=== PATIENT | male | born 1960 | race Caucasian/White ===

== ENCOUNTER → 2020-06-20 | Outpatient (CLI) | payer BC ==
--- NOTE | 2020-06-20 16:25 | CTL ---
EXAMINATION TYPE: CT Low Dose Lung DATE OF EXAM ORDERED: 06/20/2020 HISTORY: Tobacco history views. Lung cancer screening CT DLP: 153.[address] CTDI: 4.10 mGy Automated exposure control for dose reduction was used. SCREENING VISIT: Initial COMPARISON: None TECHNIQUE: Low dose computed tomography scan was performed through the chest at 1 mm thick sections a nd reconstructed images in the coronal plane at [address] DIAGNOSTIC QUALITY: Satisfactory FINDINGS: LUNG NODULES: Present, detailed below: There is a long segment of thickening along the major fissure on the right measuring proximally 1.2 c m in diameter. LUNGS: COPD: Severity: None Fibrosis: Severity: None Lymph nodes: None Other findings: None RIGHT PLEURAL SPACE: Effusion: None Calcification: None Thickening: None Pneumothorax: None LEFT PLEURAL SPACE: Effusion: None Calcification: None Thickening: None Pneumothorax: None HEART: Heart Size: Normal Coronary calcification: Moderate Pericardial effusion: None OTHER FINDINGS: Upper abdomen: Normal Bony thorax: Old right rib fractures with deformity are evident. Supraclavicular region: Normal Other: Ascending thoracic aorta at the level the main pulmonary artery measures 3.8 cm. The main pul monary artery at the bifurcation measures 3.2 cm. IMPRESSION: 1. Benign findings. 2. No suspicious changes to suggest neoplasm FOLLOW UP CT CHEST RECOMMENDATION: Yes, follow-up low-dose CT chest one year CT LUNG RAD: 2
== END ==
LOC: RADCTMAIN 13:07
PROVIDERS: ATTEND Family Medicine
DX: Z12.2 Encounter for screening for malignant neoplasm of respiratory organs (principal); Z87.891 Personal history of nicotine dependence
CPT/HCPCS: 71271

== ENCOUNTER 2021-01-10 19:02 | Inpatient (IN) | payer BC ==
[2021-01-10] MEDS ORDERED: IPRATROPIUM-ALBUTEROL 3 ML NEB INHALATION STA (19:30)
[2021-01-10] MEDS ORDERED: SODIUM CHLORIDE 0.9% 1,000 ML IV STA ×2 (19:30→20:17)
[2021-01-10] MEDS ORDERED: cefTRIAXone IN SWFI 1,000 MG/10 ML SYRINGE IVP STA (19:42)
--- NOTE | 2021-01-10 19:45 | ED ---
SOB HPI - General Chief Complaint: Shortness of Breath Stated Complaint: Weakness, Dizziness, HODAN Time Seen by Provider: 01/10/21 19:24 Source: patient Mode of arrival: ambulatory Limitations: no limitations - History of Present Illness Initial Comments: 60-year-old male presents to the emergency room with a chief complaint of fever or shortness of breath. Patient reports symptoms of an ongoing for the past several weeks and he has been experiencing chills but does not have a thermometer to check a temperature at home. States he's also developed i ncreased wheezing and exertional dyspnea. He does report some midsternal chest pressure without any radiation. Denies any alleviating or aggravating factors regarding the chest pressure. Patient states he quit smoking 2 days ago but does have long-standing history of smoking. He does report a nonproductive cough and rhinorrhea but denies any sore throat or otalgia. He denies any back pain abdominal pain nausea vomiting headaches blurry vision, once the weakness paresthesias. Not Covid vaccinated. - Related Data Home Medications Medication Instructions Recorded Confirmed Chlorthalidone [Hygroton] 25 mg PO DAILY 01/10/21 01/10/21 Sildenafil Citrate 50 mg PO DAILY PRN 01/10/21 01/10/21 lisinopriL 40 mg PO DAILY 01/10/21 01/10/21 Allergies Allergy/AdvReac Type Severity Reaction Status Date / Time No Known Allergies Allergy Verified 01/10/21 20:48 Review of Systems ROS Statement: Those systems with pertinent positive or pertinent negative responses have been documented in the HPI. ROS Other: All systems not noted in ROS Statement are negative. Past Medical History Past Medical History: Hypertension History of Any Multi-Drug Resistant Organisms: None Reported Past Surgical History: No Surgical Hx Reported Smoking Status: Current every day smoker Past Alcohol Use History: Occasional General Exam Limitations: no limitations General appearance: alert, in no apparent distress, obese Head exam: Present: atraumatic, normocephalic, normal inspection Eye exam: Present: normal appearance, PERRL, EOMI Pupils: Present: normal accommodation ENT exam: Present: normal exam, normal oropharynx, mucous membranes moist, TM's normal bilaterally, normal external ear exam Neck exam: Present: normal inspection, full ROM. Absent: tenderness Respiratory exam: Present: wheezes (Diffuse bilateral wheezing), decreased breath sounds, prolonged expiratory. Absent: respiratory distress, rales, rhonchi, stridor, chest wall tenderness, accessory muscle use Cardiovascular Exam: Present: regular rate, normal rhythm, normal heart sounds. Absent: systolic murmur GI/Abdominal exam: Present: soft. Absent: distended, tenderness, guarding Extremities exam: Present: normal inspection, full ROM, normal capillary refill, other (Palpable DP and PT bilaterally). Absent: tenderness Back exam: Present: normal inspection, full ROM Neurological exam: Present: alert, oriented X3 Psychiatric exam: Present: normal affect, normal mood Skin exam: Present: warm, dry, intact, normal color Course Vital Signs 01/10/21 01/10/21 01/10/21 19:05 19:23 20:27 Temperature 101.7 F H Pulse Rate 120 H 120 H 110 H Respiratory 18 22 Rate Blood Pressure 127/71 119/80 O2 Sat by Pulse 80 L 91 L Oximetry Medical Decision Making - Medical Decision Making 60-year-old male presents to the emergency room with a chief complaint of fever or shortness of breath. On physical examination, patient is febrile tachycardic and tachypneic. He has diffuse bilateral wheezing. He was given DuoNeb which improved his symptoms. Patient reports the dyspnea had improved and the chest tightness had resolved. Patient is still on 3 L nasal cannula and currently oxygen saturating at 92%. Covid negative. Patient did have an elevated d-dimer 5.5 with an elevated troponin 0.083. However, he does have poor renal function with elevated BUN and creatinine of 52 and 2.13, respectively. Unable to perform CT angiography at this time. Patient will be scheduled for a VQ scan. He also had leukocytosis of 15,000. Negative Covid. Patient was initially given appropriate IV fluids based on ideal body weight. Also started on Rocephin immediately. Azithromycin was further at it. I spoke to RICHIE Rubio who will admit for Dr. Smith. He recommended low intensity heparin. Case discussed with Dr. Ball. Cardiology consult. - Lab Data Result diagrams: 01/10/21 19:38 01/10/21 19:38 Lab Results 01/10/21 01/10/21 01/10/21 Range/Units 19:38 19:38 19:38 WBC 15.3 H (3.8-10.6) k/uL RBC 4.76 (4.30-5.90) m/uL Hgb 15.6 (13.0-17.5) gm/dL Hct 47.2 (39.0-53.0) % MCV 99.0 (80.0-100.0) fL MCH 32.8 (25.0-35.0) pg MCHC 33.1 (31.0-37.0) g/dL RDW 12.7 (11.5-15.5) % Plt Count 227 (150-450) k/uL MPV 7.6 Neutrophils % 95 % Lymphocytes % 2 % Monocytes % 2 % Eosinophils % 0 % Basophils % 0 % Neutrophils # 14.4 H (1.3-7.7) k/uL Lymphocytes # 0.4 L (1.0-4.8) k/uL Monocytes # 0.4 (0-1.0) k/uL Eosinophils # 0.0 (0-0.7) k/uL Basophils # 0.0 (0-0.2) k/uL PT 9.5 (9.0-12.0) sec INR 0.9 (<1.2) APTT 26.9 (22.0-30.0) sec D-Dimer 5.59 H (<0.60) mg/L FEU Sodium 131 L (137-145) mmol/L Potassium 3.8 (3.5-5.1) mmol/L Chloride 92 L (98-107) mmol/L Carbon Dioxide 29 (22-30) mmol/L Anion Gap 10 mmol/L BUN 52 H (9-20) mg/dL Creatinine 2.13 H (0.66-1.25) mg/dL Est GFR (CKD-EPI)AfAm 38 (>60 ml/min/1.73 sqM) Est GFR (CKD-EPI)NonAf 33 (>60 ml/min/1.73 sqM) Glucose 117 H (74-99) mg/dL Plasma Lactic Acid Michelet (0.7-2.0) mmol/L Calcium 8.7 (8.4-10.2) mg/dL Total Bilirubin 1.7 H (0.2-1.3) mg/dL AST 62 H (17-59) U/L ALT 28 (4-49) U/L Alkaline Phosphatase 93 (38-126) U/L Troponin I (0.000-0.034) ng/mL Total Protein 6.3 (6.3-8.2) g/dL Albumin 3.3 L (3.5-5.0) g/dL Coronavirus (PCR) (Not Detectd) 01/10/21 01/10/21 01/10/21 Range/Units 19:38 19:38 19:38 WBC (3.8-10.6) k/uL RBC (4.30-5.90) m/uL Hgb (13.0-17.5) gm/dL Hct (39.0-53.0) % MCV (80.0-100.0) fL MCH (25.0-35.0) pg MCHC (31.0-37.0) g/dL RDW (11.5-15.5) % Plt Count (150-450) k/uL MPV Neutrophils % % Lymphocytes % % Monocytes % % Eosinophils % % Basophils % % Neutrophils # (1.3-7.7) k/uL Lymphocytes # (1.0-4.8) k/uL Monocytes # (0-1.0) k/uL Eosinophils # (0-0.7) k/uL Basophils # (0-0.2) k/uL PT (9.0-12.0) sec INR (<1.2) APTT (22.0-30.0) sec D-Dimer (<0.60) mg/L FEU Sodium (137-145) mmol/L Potassium (3.5-5.1) mmol/L Chloride (98-107) mmol/L Carbon Dioxide (22-30) mmol/L Anion Gap mmol/L BUN (9-20) mg/dL Creatinine (0.66-1.25) mg/dL Est GFR (CKD-EPI)AfAm (>60 ml/min/1.73 sqM) Est GFR (CKD-EPI)NonAf (>60 ml/min/1.73 sqM) Glucose (74-99) mg/dL Plasma Lactic Acid Michelet 1.2 (0.7-2.0) mmol/L Calcium (8.4-10.2) mg/dL Total Bilirubin (0.2-1.3) mg/dL AST (17-59) U/L ALT (4-49) U/L Alkaline Phosphatase (38-126) U/L Troponin I 0.084 H* (0.000-0.034) ng/mL Total Protein (6.3-8.2) g/dL Albumin (3.5-5.0) g/dL Coronavirus (PCR) Not Detected (Not Detectd) - EKG Data EKG Comments: Sinus tachycardia Ventricular rate 120, MT 154, QRS 96, QTc 443. Disposition Clinical Impression: Pneumonia, Elevated troponin, Acute kidney injury Disposition: ADMITTED IP TO THIS HOSP Condition: Fair Is patient prescribed a controlled substance at d/c from ED?: No Referrals: Char Howard MD [Primary Care Provider] - 1-2 days Time of Disposition: 21:09
[2021-01-10 19:48] LABS: Basophils % (A) 0 %; Eosinophils % (A) 0 %; HCT 47.2 % (39.0-53.0); HGB 15.6 gm/dL (13.0-17.5); Lymphocytes # (A) 0.4 k/uL (1.0-4.8); Lymphocytes % (A) 2 %; MCH 32.8 pg (25.0-35.0); MCHC 33.1 g/dL (31.0-37.0); Mean Platelet Volume 7.6; Monocytes # (A) 0.4 k/uL (0-1.0); Monocytes % (A) 2 %; Neutrophils # (A) 14.4 k/uL (1.3-7.7); Neutrophils % (A) 95 %; Platelet Count 227 k/uL (150-450); RBC 4.76 m/uL (4.30-5.90); RDW 12.7 % (11.5-15.5); WBC 15.3 k/uL (3.8-10.6)
[2021-01-10 19:57] LABS: Albumin 3.3 g/dL (3.5-5.0); Calcium 8.7 mg/dL (8.4-10.2); Potassium 3.8 mmol/L (3.5-5.1); Total Bilirubin 1.7 mg/dL (0.2-1.3); Total Protein 6.3 g/dL (6.3-8.2)
[2021-01-10 20:25] LABS: INR 0.9 (<1.2); Partial Thromboplastin Time 26.9 sec (22.0-30.0); Prothrombin Time 9.5 sec (9.0-12.0)
[2021-01-10] MEDS ORDERED: HEPARIN SODIUM 1,000 UN/ML (10ML VL) IV PRN (21:04)
[2021-01-10] MEDS ORDERED: HEPARIN SODIUM 1,000 UN/ML (10ML VL) IV ONE (21:04)
[2021-01-10] MEDS ORDERED: NALOXONE 0.4 MG/ML 1 ML VIAL IV PRN (21:05)
[2021-01-10] MEDS ORDERED: AZITHROMYCIN 500 MG in SODIUM CHLORIDE 0.9% 250 ML IVPB STA (21:06)
[2021-01-10] MEDS ORDERED: HEPARIN SOD,PORK IN 0.45% NACL 25,000 UNIT in 0.45% NACL 1 250ML.BAG IV SCH (21:15)
--- NOTE | 2021-01-10 21:30 | XR ---
EXAMINATION TYPE: XR chest 2V DATE OF EXAM: 01/10/2021 COMPARISON: CT 06/20/2020 HISTORY: Weakness dizziness TECHNIQUE: Frontal and lateral views of the chest are obtained. FINDINGS: The cardiomediastinal silhouette and pulmonary vasculature are within normal limits. Blunt ing of the right is costophrenic angle likely related to elevation of the hemidiaphragm. No consolida tion, effusion or pneumothorax. Old right rib fractures. IMPRESSION: Acute cardiopulmonary process.
[2021-01-10] MEDS ORDERED: ACETAMINOPHEN TAB 500 MG TAB PO STA (23:20)
[2021-01-10] MEDS: SODIUM CHLORIDE 0.9% 1,000 ML IV SCH (23:22)
[2021-01-11] MEDS ORDERED: SODIUM CHLORIDE 0.9% 1,000 ML IV ONE (00:39)
[2021-01-11 00:45] LABS: Basophils % (A) 0 %; Eosinophils % (A) 0 %; Lymphocytes # (A) 0.4 k/uL (1.0-4.8); Lymphocytes % (A) 3 %; MCH 32.5 pg (25.0-35.0); MCHC 32.5 g/dL (31.0-37.0); Mean Platelet Volume 7.4; Monocytes # (A) 0.3 k/uL (0-1.0); Monocytes % (A) 2 %; Neutrophils # (A) 13.6 k/uL (1.3-7.7); Neutrophils % (A) 94 %; Platelet Count 214 k/uL (150-450); RBC 4.01 m/uL (4.30-5.90); RDW 12.8 % (11.5-15.5); WBC 14.4 k/uL (3.8-10.6)
[2021-01-11 00:48] LABS: Allen Test Performed? Yes
[2021-01-11 00:56] LABS: ABG Base Excess 0.1 mmol/L; ABG HCO3 27 mmol/L (21-25); ABG Oxygen Saturation 97.6 % (94-97); ABG PCO2 53 mmHg (35-45); ABG PH 7.31 (7.35-7.45); ABG PO2 97 mmHg (83-108); ABG TCO2 28 mmol/L (19-24)
[2021-01-11 01:08] LABS: INR 0.9 (<1.2); Partial Thromboplastin Time 43.3 sec (22.0-30.0)
--- NOTE | 2021-01-11 01:56 | P.EN ---
A team note called on this patient due hypotension patient comes in with SOB and fever, diagnosed with pneumonia , and history of heavy smoking with possible clinical COPD undiagnosed d - dimer elevated, but EVI prevented obtaining a CTA , he was started on heparin drip, however no risk factors per history for blood clots ABG showing eleveated PCO2 on exam he is feeling ok , diaphoretic , no confusion , no chest pain , he feels his breathing heavy , currently on 5 L NC sating 91-92% PH 7.31, PCO2 55, lungs sounds rhonchorous decreased breath sounds over the right lung base Extremities are warm to the touch no leg edema bilaterally Patient alert and oriented 3 he received 2 L boluses , LA wnl ,received 1gm rocephin and azithro currently on heparin drip and oxygen , breathing treatment as needed assessment Severe septic shock with multiorgan failure ( hypoxemia , and EVI) give another dose of 1 gm rocephin and switch to rocephin 2 gm daily IVPB, continue azithro check urine legionella Ag (hyponatremia , EVI , slightly elevated CK, atypical infilterates on the CXR) continue with heparin drip , can not rule out PE, d-dimer elevated however no risk factor per history start bipap due to ABG showing acute hypercapnic respiratory failure with mild acidosis another 1 L bolus normal saline if above measures does not help improve patient blood pressure , or clinical picture worsens , will transfer to ICU for IV pressors Total amount of critical care time spent was 35 minutes not counting procedures performed.
[2021-01-11 02:38] LABS: Basophils % (A) 0 %; Eosinophils # (A) 0.1 k/uL (0-0.7); Eosinophils % (A) 0 %; HCT 41.1 % (39.0-53.0); HGB 13.2 gm/dL (13.0-17.5); Lymphocytes # (A) 0.5 k/uL (1.0-4.8); Lymphocytes % (A) 4 %; MCH 32.2 pg (25.0-35.0); MCHC 32.1 g/dL (31.0-37.0); MCV 100.6 fL (80.0-100.0); Mean Platelet Volume 7.3; Monocytes # (A) 0.3 k/uL (0-1.0); Monocytes % (A) 2 %; Neutrophils # (A) 12.8 k/uL (1.3-7.7); Neutrophils % (A) 93 %; Platelet Count 212 k/uL (150-450); RBC 4.09 m/uL (4.30-5.90); RDW 12.9 % (11.5-15.5); WBC 13.9 k/uL (3.8-10.6)
[2021-01-11] MEDS ORDERED: SODIUM CHLORIDE 0.9% 500 ML 500 ML IV ONE ×2 (02:42→03:42)
[2021-01-11 02:59] LABS: INR 0.9 (<1.2); Partial Thromboplastin Time 35.1 sec (22.0-30.0); Prothrombin Time 9.8 sec (9.0-12.0)
--- NOTE | 2021-01-11 07:08 | NM ---
EXAMINATION TYPE: NM pul perfusion DATE OF EXAM: 01/11/2021 COMPARISON: NONE HISTORY: Dyspnea, elevated d-dimer, poor renal function Following administration of 5.1 mCi Tc 99m MAA. Images obtained post injection. FINDINGS: There is homogeneous distribution radiotracer throughout the visualized perfusion images. IMPRESSION: Low probability for pulmonary embolism.
[2021-01-11] MEDS ORDERED: IPRATROPIUM-ALBUTEROL 3 ML NEB INHALATION PRN (09:54)
[2021-01-11] MEDS: SODIUM CHLORIDE 0.9% 1,000 ML IV SCH ×3 (10:35→20:06)
--- NOTE | 2021-01-11 10:45 | ECHOF ---
Referral Reason:elev trop, sob MEASUREMENTS -------- HEIGHT: 182.9 cm WEIGHT: 111.6 kg BP: 127/83 RVIDd: 3.0 cm (< 3.3) IVSd: 1.3 cm (0.6 - 1.1) LVIDd: 4.2 cm (3.9 - 5.3) LVPWd: 1.3 cm (0.6 - 1.1) IVSs: 1.9 cm LVIDs: 2.9 cm LVPWs: 1.6 cm LA Diam: 3.4 cm (2.7 - 3.8) LAESV Index (A-L): 15.00 ml/m Ao Diam: 4.0 cm (2.0 - 3.7) AV Cusp: 2.2 cm (1.5 - 2.6) MV EXCURSION: 13.883 mm (> 18.000) MV EF SLOPE: 72 mm/s (70 - 150) EPSS: 0.6 cm MV E Marco: 0.89 m/s MV DecT: 212 ms MV A Marco: 1.20 m/s MV E/A Ratio: 0.74 RAP: 5.00 mmHg RVSP: 44.63 mmHg FINDINGS -------- Sinus rhythm. Resting tachycardia (HR>100bpm). This was a technically difficult study with suboptimal views. The left ventricular size is normal. There is mild concentric left ventricular hypertrophy. Overa ll left ventricular systolic function is normal with, an EF between 55 - 60 %. The right ventricle is normal in size. Normal LA size by volume 22+/-6 ml/m2. The right atrial size is normal. Interatrial and interventricular septum intact. The aortic valve is trileaflet, and appears structurally normal. No aortic stenosis or regurgitation. The mitral valve is normal. Mild tricuspid regurgitation present. There is mild pulmonary hypertension. The right ventricular systolic pressure, as measured by Doppler, is 44.63mmHg. The pulmonic valve was not well visualized. The aortic root is dilated measuring 4.0cm. Normal inferior vena cava with normal inspiratory collapse consistent with estimated right atrial pre ssure of 5 mmHg. There is no pericardial effusion. CONCLUSIONS -------- 1. This was a technically difficult study with suboptimal views. 2. There is mild concentric left ventricular hypertrophy. 3. Overall left ventricular systolic function is normal with, an EF between 55 - 60 %. 4. Normal LA size by volume 22+/-6 ml/m2. 5. The aortic valve is trileaflet, and appears structurally normal. No aortic stenosis or regurgitati on. 6. Mild tricuspid regurgitation present. 7. There is mild pulmonary hypertension. 8. The aortic root is dilated measuring 4.0cm. 9. There is no pericardial effusion. REGIONAL ADMINISTRATIVE ASSISTANT: Elizabeth Calzada RDCS
--- NOTE | 2021-01-11 11:30 | P.CRDCN ---
History of Present Illness History of present illness: HISTORY OF PRESENTING ILLNESS This is a pleasant 60-year-old male past medical history significant for hypertension, chronic nicotine dependence and daily alcohol intake. 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 We have been asked to see in consultation for elevated troponin. He presented to the hospital with symptoms of shortness of breath that has been worsening for the previous couple weeks with a tight sens ation in his chest associated with breathing. He denies dizziness or palpitations. He is currently being treated for septic shock secondary to suspected pneumonia. He was placed on BiPAP last night for elevated pCO2. He is seen and examined sitting up in bed in no acute distress. He has no symptoms of chest discomfort. He feels his breathing is mildly improved however he continues to require oxygen. Echocardiogram obtained reveals preserved LV systolic function with ejection fraction 55-60% with mild tricuspid regurgitation and mild pulmonary hypertension with an RVSP of 44 mmHg. DIAGNOSTICS EKG reveals sinus tachycardia heart rate of 120, poor R-wave progression and nonspecific ST abnormalities.. Telemetry tracings indicate SR. Chest xray reveals blunting of the right costophrenic angle. VQ scan low probability for PE. Laboratory reviewed, WBC 13.9, hemoglobin 13.2, platelets 212, pH 7.31, pCO2 53, NT proBNP 915, troponin 0.084, 0.078, 0.065, sodium 131, potassium 3.8, creatini ne 2.13. Current cardiac medications include lisinopril 40 mg daily and chlorthalidone 25 mg daily. REVIEW OF SYSTEMS At the time of my exam: CONSTITUTIONAL: Denies fever or chills. CARDIOVASCULAR: Denies chest pain, shortness of breath, orthopnea, PND or palpitations. RESPIRATORY: Denies cough. GASTROINTESTINAL: Denies abdominal pain, diarrhea, constipation, nausea or vomiting. MUSCULOSKELETAL: Denies myalgias. NEUROLOGIC: Denies numbness, tingling, headache or weakness. ENDOCRINE: Denies fatigue, weight change, polydipsia or polyurina. GENITOURINARY: Denies burning, hematuria or urgency with micturation. HEMATOLOGIC: Denies history of anemia or bleeding. PHYSICAL EXAMINATION Blood pressure 110/72 heart rate 90 afebrile and maintaining oxygen saturation on hyphal nasal cannula. CONSTITUTIONAL: No apparent distress. HEENT: Head is normocephalic. Pupils are equal, round. Sclerae anicteric. Mucous membranes of the mouth are moist. No JVD. No carotid bruit. CHEST EXAMINATION: Expiratory wheezes, scattered rhonchi, no rales No chest wall tenderness is noted on palpation or with deep breathing. HEART EXAMINATION: Regular rate and rhythm. S1, S2 heard. No murmurs, gallops or rub. ABDOMEN: Soft, nontender. EXTREMITIES: 2+ peripheral pulses, no lower extremity edema and no calf tenderness. NEUROLOGIC EXAMINATION: Patient is awake, alert and oriented x3. ASSESSMENT Shortness of breath Hypercapnia Acute kidney injury Troponin leak secondary to EVI Hypertension Nicotine dependence Daily alcohol intake PLAN Troponin elevation related to acute kidney injury. No ischemic changes noted on the EKG or echocardiogram. No further cardiac workup at this time. Suggest pulmonary evaluation. Follow-up in the office with Dr. Bueno upon discharge for further outpatient work-up. Thank you kindly for this consultation. Nurse Practitioner note has been reviewed, I agree with a documented findings and plan of care. Patient was seen and examined. Past Medical History Past Medical History: Hypertension History of Any Multi-Drug Resistant Organisms: None Reported Past Surgical History: No Surgical Hx Reported Smoking Status: Current some day smoker Past Alcohol Use History: Daily Additional Past Alcohol Use History / Comment(s): 2 drinks daily; pt smokes 1.5 packs a day Medications and Allergies Home Medications Medication Instructions Recorded Confirmed Type Chlorthalidone [Hygroton] 25 mg PO DAILY 01/10/21 01/10/21 History Sildenafil Citrate 50 mg PO DAILY PRN 01/10/21 01/10/21 History lisinopriL 40 mg PO DAILY 01/10/21 01/10/21 History Allergies Allergy/AdvReac Type Severity Reaction Status Date / Time No Known Allergies Allergy Verified 01/10/21 20:48 Physical Exam Vitals: Vital Signs Temp Pulse Pulse Resp BP BP BP 01/11/21 07:20 97.6 F 97 127/83 01/11/21 05:12 80 99/68 01/11/21 04:25 88 23 97/66 01/11/21 03:40 74 90/58 01/11/21 03:16 98.7 F 76 18 82/50 01/11/21 02:30 82 20 84/51 01/11/21 01:59 98.9 F 01/11/21 01:20 97/63 01/11/21 00:58 82/52 01/11/21 00:46 01/11/21 00:43 01/11/21 00:33 65/36 01/10/21 23:45 99.8 F H 105 H 23 82/51 74/43 01/10/21 23:28 102.3 F H 109 H 20 107/78 01/10/21 22:08 109 H 20 126/82 01/10/21 20:35 108 H 01/10/21 20:25 110 H 01/10/21 19:23 120 H 22 119/80 01/10/21 19:05 101.7 F H 120 H 18 127/71 Pulse Ox 01/11/21 07:20 01/11/21 05:12 97 01/11/21 04:25 96 01/11/21 03:40 97 01/11/21 03:16 94 L 01/11/21 02:30 95 01/11/21 01:59 01/11/21 01:20 01/11/21 00:58 01/11/21 00:46 92 L 01/11/21 00:43 95 01/11/21 00:33 01/10/21 23:45 91 L 01/10/21 23:28 92 L 01/10/21 22:08 93 L 01/10/21 20:35 01/10/21 20:25 01/10/21 19:23 91 L 01/10/21 19:05 80 L Intake and Output 01/10/21 01/11/21 01/11/21 22:59 06:59 14:59 Intake Total 36.811 240 Output Total 175 Balance -138.189 240 Intake: Intake, IV Titration 36.811 Amount Heparin Sod,Pork in 0.45% 36.811 NaCl 25,000 unit In 0.45 % NaCl 1 250ml.bag @ 9.18 UNITS/KG/HR 9.994 mls/hr IV .Q24H [facility] Rx#: [id number] Oral 240 Output: Urine 175 Other: Voiding Method Urinal # Voids 1 Weight 108.862 kg 112 kg Results 01/11/21 02:24 01/10/21 19:38 Cardiac Enzymes 01/10/21 01/10/21 01/11/21 Range/Units 19:38 19:38 00:27 AST 62 H (17-59) U/L Troponin I 0.084 H* 0.078 H* (0.000-0.034) ng/mL 01/11/21 Range/Units 02:24 AST (17-59) U/L Troponin I 0.065 H* (0.000-0.034) ng/mL Coagulation 01/10/21 01/11/21 01/11/21 Range/Units 19:38 00:27 02:24 PT 9.5 10.0 9.8 (9.0-12.0) sec APTT 26.9 43.3 H 35.1 H (22.0-30.0) sec 01/11/21 Range/Units 08:17 PT (9.0-12.0) sec APTT 32.6 H (22.0-30.0) sec CBC 01/10/21 01/11/21 01/11/21 Range/Units 19:38 00:27 02:24 WBC 15.3 H 14.4 H 13.9 H (3.8-10.6) k/uL RBC 4.76 4.01 L 4.09 L (4.30-5.90) m/uL Hgb 15.6 13.0 13.2 (13.0-17.5) gm/dL Hct 47.2 40.0 41.1 (39.0-53.0) % Plt Count 227 214 212 (150-450) k/uL Comprehensive Metabolic Panel 01/10/21 Range/Units 19:38 Sodium 131 L (137-145) mmol/L Potassium 3.8 (3.5-5.1) mmol/L Chloride 92 L (98-107) mmol/L Carbon Dioxide 29 (22-30) mmol/L BUN 52 H (9-20) mg/dL Creatinine 2.13 H (0.66-1.25) mg/dL Glucose 117 H (74-99) mg/dL Calcium 8.7 (8.4-10.2) mg/dL AST 62 H (17-59) U/L ALT 28 (4-49) U/L Alkaline Phosphatase 93 (38-126) U/L Total Protein 6.3 (6.3-8.2) g/dL Albumin 3.3 L (3.5-5.0) g/dL Current Medications Generic Name Dose Route Start Last Admin Trade Name Freq PRN Reason Stop Dose Admin Heparin Sodium (Porcine) 0 unit 01/10/21 21:04 01/11/21 03:09 Heparin Sodium 1,000 Un/Ml (10ml Vl) IV 2,700 unit PER PROTOCOL PRN Administration Low PTT Protocol Heparin Sodium/Sodium Chloride 250 mls @ 9.994 mls/hr 01/10/21 21:15 01/11/21 03:06 25,000 unit/ Sodium Chloride IV 11.18 units/kg/hr .Q24H [facility] 12.171 mls/hr Titration Protocol 9.18 UNITS/KG/HR Sodium Chloride 1,000 mls @ 100 mls/hr 01/10/21 21:15 01/10/21 23:22 Saline 0.9% IV 75 mls/hr .Q10H [facility] Administration Ceftriaxone Sodium 2 gm/ 50 mls @ 100 mls/hr 01/11/21 20:00 Sodium Chloride IVPB Q24H [facility] Naloxone HCl 0.2 mg 01/10/21 21:05 Naloxone 0.4 Mg/Ml 1 Ml Vial IV Q2M PRN Opioid Reversal Intake and Output 01/10/21 01/11/21 01/11/21 22:59 06:59 14:59 Intake Total 36.811 240 Output Total 175 Balance -138.189 240 Intake: Intake, IV Titration 36.811 Amount Heparin Sod,Pork in 0.45% 36.811 NaCl 25,000 unit In 0.45 % NaCl 1 250ml.bag @ 9.18 UNITS/KG/HR 9.994 mls/hr IV .Q24H [facility] Rx#: [id number] Oral 240 Output: Urine 175 Other: Voiding Method Urinal # Voids 1 Weight 108.862 kg 112 kg 01/11/21 02:24 01/10/21 19:38
[2021-01-11] MEDS: IPRATROPIUM-ALBUTEROL 3 ML NEB INHALATION SCH ×3 (11:36→19:18)
[2021-01-11] MEDS ORDERED: methylPREDNISolone SOD SUCCI 125 MG/2 ML VIAL IV SCH (12:00)
--- NOTE | 2021-01-11 12:16 | P.CNPUL ---
History of Present Illness Consult date: 01/11/21 Requesting physician: Ángel Smith Reason for consult: dyspnea, cough, COPD, hypoxemia Chief complaint: Shortness of breath. History of present illness: Pulmonary consultation dated 01/11/2021. This is a 60-year-old male, who was evaluated in the emergency department, on January 10. The patient came into the emergency room, complaining of fever, and shortness of breath. Apparently, the patient has not been feeling well for a number of days. The patient did not take his temperature at home, but is felt hot and was having chills. In addition, the patient was congested, coughing, and wheezing. He did apparently also complaining of some midsternal chest pressure without radiation. The patient was admitted to the hospital because of these complaints. The patient has been smoking since the age of 20. He's been smoking 40 years at more than 1 pack of cigarettes a day. He quit smoking a day or so before he came into the hospital. He has never seen a lung doctor in the past. He has never been diagnosed with COPD. He has been seen by cardiology. The patient has not received his vaccinations against coronavirus. Apparently has only medical history is that of hypertension, and erectile dysfunction. White count 13.9, hemoglobin 13.2, hematocrit 41.1, and platelet count 212,000. The patient's PTT is 32.6. Blood gases show pO2 of 97, pCO2 53, and a pH is 7.31. This blood gases consistent with mild respiratory acidosis. The patient's CK was 280. The N-terminal proBNP was 915. The troponins were 0.078 and 0.065. [place] opinion, the chest x-rays consistent with mild fluid overload and bilateral pleural effusions and/or atelectasis. A ventilation perfusion lung scan was apparently low probability for pulmonary embolism. The echocardiogram showed an ejection fraction between 55 and 60%. There was mild tricuspid regurgitation, and mild pulmonary hypertension. This pattern is likely most consistent with underlying pulmonary disease. Review of Systems REVIEW OF SYSTEMS: CONSTITUTIONAL: Chills and possible temperature elevation. NEUROLOGIC: [ Negative.] HEENT: [ Negative.] CARDIAC: Midsternal chest discomfort. PULMONARY: Shortness of breath, cough, wheezing, and chest congestion. GI: [Negative.] : [Negative.] RHEUMATOLOGIC: [ Negative.] IMMUNOLOGIC: [ Negative.] ENDOCRINE: [Negative. ] DERMATOLOGIC: [Negative.] Past Medical History Past Medical History: Hypertension History of Any Multi-Drug Resistant Organisms: None Reported Past Surgical History: No Surgical Hx Reported Smoking Status: Current some day smoker Past Alcohol Use History: Daily Additional Past Alcohol Use History / Comment(s): 2 drinks daily; pt smokes 1.5 packs a day Medications and Allergies Home Medications Medication Instructions Recorded Confirmed Type Chlorthalidone [Hygroton] 25 mg PO DAILY 01/10/21 01/10/21 History Sildenafil Citrate 50 mg PO DAILY PRN 01/10/21 01/10/21 History lisinopriL 40 mg PO DAILY 01/10/21 01/10/21 History Allergies Allergy/AdvReac Type Severity Reaction Status Date / Time No Known Allergies Allergy Verified 01/10/21 20:48 Physical Exam Osteopathic Statement: *. No significant issues noted on an osteopathic structural exam other than those noted in the History and Physical/Consult. Vitals: Vital Signs Temp Pulse Pulse Resp BP BP BP 01/11/21 11:48 112 H 01/11/21 11:37 112 H 01/11/21 07:50 98.4 F 90 18 110/72 01/11/21 07:20 97.6 F 97 127/83 01/11/21 05:12 80 99/68 01/11/21 04:25 88 23 97/66 01/11/21 03:40 74 90/58 01/11/21 03:16 98.7 F 76 18 82/50 01/11/21 02:30 82 20 84/51 01/11/21 01:59 98.9 F 01/11/21 01:20 97/63 01/11/21 00:58 82/52 01/11/21 00:46 01/11/21 00:43 01/11/21 00:33 65/36 01/10/21 23:45 99.8 F H 105 H 23 82/51 74/43 01/10/21 23:28 102.3 F H 109 H 20 107/78 01/10/21 22:08 109 H 20 126/82 01/10/21 20:35 108 H 01/10/21 20:25 110 H 01/10/21 19:23 120 H 22 119/80 01/10/21 19:05 101.7 F H 120 H 18 127/71 Pulse Ox 01/11/21 11:48 01/11/21 11:37 01/11/21 07:50 96 01/11/21 07:20 01/11/21 05:12 97 01/11/21 04:25 96 01/11/21 03:40 97 01/11/21 03:16 94 L 01/11/21 02:30 95 01/11/21 01:59 01/11/21 01:20 01/11/21 00:58 01/11/21 00:46 92 L 01/11/21 00:43 95 01/11/21 00:33 01/10/21 23:45 91 L 01/10/21 23:28 92 L 01/10/21 22:08 93 L 01/10/21 20:35 01/10/21 20:25 01/10/21 19:23 91 L 01/10/21 19:05 80 L Intake and Output 01/10/21 01/11/21 01/11/21 22:59 06:59 14:59 Intake Total 36.811 240 Output Total 175 Balance -138.189 240 Intake: Intake, IV Titration 36.811 Amount Heparin Sod,Pork in 0.45% 36.811 NaCl 25,000 unit In 0.45 % NaCl 1 250ml.bag @ 9.18 UNITS/KG/HR 9.994 mls/hr IV .Q24H [facility] Rx#: [id number] Oral 240 Output: Urine 175 Other: Voiding Method Urinal Urinal # Voids 1 Weight 108.862 kg 112 kg Mild respiratory distress, oriented 3, with mild conversational dyspnea. No audible wheezing or use of accessory muscles. HEENT examination is grossly unremarkable. Neck supple. Full range of motion. No adenopathy thyromegaly or neck vein distention. Cardiovascular examination reveals regular rhythm rate. S1-S2 normal. No S3 or S4. No discernible murmur noted. Heart rate 112 bpm. Heart sounds are distant. Lungs reveal coarse bilateral inspiratory and expiratory rhonchi, and expiratory wheezes. Breath sounds equal bilaterally but diminished throughout. No crackles are appreciated. Abdomen soft bowel sounds are heard. No masses or tenderness. Extremities are intact. No cyanosis or clubbing. Minimal edema present. Skin is without rash or lesion. Neurologic examination is brief but nonfocal. Results - Laboratory Findings CBC and BMP: 01/11/21 02:24 01/10/21 19:38 ABG ABG pH 7.31 (7.35-7.45) L 01/11/21 00:45 ABG pCO2 53 mmHg (35-45) H 01/11/21 00:45 ABG pO2 97 mmHg (83-108) 01/11/21 00:45 ABG O2 Saturation 97.6 % (94-97) H 01/11/21 00:45 PT/INR, D-dimer PT 9.8 sec (9.0-12.0) 01/11/21 02:24 INR 0.9 (<1.2) 01/11/21 02:24 D-Dimer 5.59 mg/L FEU (<0.60) H 01/10/21 19:38 Abnormal lab findings: Abnormal Labs 01/10/21 01/10/21 01/10/21 19:38 19:38 19:38 WBC 15.3 H RBC MCV Neutrophils # 14.4 H Lymphocytes # 0.4 L APTT D-Dimer 5.59 H ABG pH ABG pCO2 ABG HCO3 ABG Total CO2 ABG O2 Saturation Sodium 131 L Chloride 92 L BUN 52 H Creatinine 2.13 H Glucose 117 H Total Bilirubin 1.7 H AST 62 H Creatine Kinase Troponin I Albumin 3.3 L 01/10/21 01/11/21 01/11/21 19:38 00:27 00:27 WBC 14.4 H RBC 4.01 L MCV Neutrophils # 13.6 H Lymphocytes # 0.4 L APTT 43.3 H D-Dimer ABG pH ABG pCO2 ABG HCO3 ABG Total CO2 ABG O2 Saturation Sodium Chloride BUN Creatinine Glucose Total Bilirubin AST Creatine Kinase Troponin I 0.084 H* Albumin 01/11/21 01/11/21 01/11/21 00:27 00:27 00:45 WBC RBC MCV Neutrophils # Lymphocytes # APTT D-Dimer ABG pH 7.31 L ABG pCO2 53 H ABG HCO3 27 H ABG Total CO2 28 H ABG O2 Saturation 97.6 H Sodium Chloride BUN Creatinine Glucose Total Bilirubin AST Creatine Kinase 280 H Troponin I 0.078 H* Albumin 01/11/21 01/11/21 01/11/21 02:24 02:24 02:24 WBC 13.9 H RBC 4.09 L MCV 100.6 H Neutrophils # 12.8 H Lymphocytes # 0.5 L APTT 35.1 H D-Dimer ABG pH ABG pCO2 ABG HCO3 ABG Total CO2 ABG O2 Saturation Sodium Chloride BUN Creatinine Glucose Total Bilirubin AST Creatine Kinase Troponin I 0.065 H* Albumin 01/11/21 08:17 WBC RBC MCV Neutrophils # Lymphocytes # APTT 32.6 H D-Dimer ABG pH ABG pCO2 ABG HCO3 ABG Total CO2 ABG O2 Saturation Sodium Chloride BUN Creatinine Glucose Total Bilirubin AST Creatine Kinase Troponin I Albumin - Diagnostic Findings Chest x-ray: image reviewed Assessment and Plan Assessment: Shortness of breath, most likely related to underlying pulmonary disease such as COPD, for many years of tobacco use. Mild pulmonary hypertension, also likely the result of underlying COPD. History of ongoing tobacco use with nicotine addiction. Possible mild fluid overload/CHF. History of hypertension. History of erectile dysfunction. Plan: Plan dated 01/11/2021. The patient we placed on albuterol sulfate and ipratropium bromide, 4 times a day and when necessary. Addition, the patient will be placed on Pulmicort 1 mg and formoterol, 20 g, twice a day. We'll also add some Solu-Medrol 60 mg IV push every 6 hours. The patient may benefit from a nicotine patch. We counseled the patient about the importance of smoking cessation. Post discharge, the patient will need an outpatient pulmonary function test. Prognosis is guarded. Time with Patient: Greater than 30
--- NOTE | 2021-01-11 12:23 | P.HPIM ---
History of Present Illness Patient is a pleasant 60-year-old male came in with complaints of for generalized body aches unsure whether he had fever shortness of breath not feeling well going on for about 3 days. Patient was also complaining of cough with sputum production patient was smoking about pack and half cigarettes a day until 3 days ago. Patient was never diagnosed with COPD but does have significant wheezing on exam. Patient needed to be on BiPAP. Patient has a bilateral pleural effusions on the chest x-ray some atelectasis an atypical infiltrate. Patient's serum sodium is low, patient is on diuretics at home. Patient to denied any significant chest pain troponins are minimally elevated because of which are cardiology valid the patient patient has creatinine of 2.13, do not have any other creatinines available patient is hypotensive yesterday. Patient is on lisinopril, sildenafil and chlorthalidone at home. Patient does have leukocytosis. Patient is presently receiving 100 mL of normal saline at this time. Patient d-dimer is highly elevated to 5.59 because of which patient had a VQ scan which showed low probability. Patient was started on IV heparin which is being discontinued. REVIEW OF SYSTEMS: CONSTITUTIONAL: As mentioned in HPI HEENT: No recent visual problems or hearing problems. Denied any sore throat. CARDIOVASCULAR: No chest pain, orthopnea, PND, no palpitations, no syncope. PULMONARY: no hemoptysis. GASTROINTESTINAL: No diarrhea, no nausea, no vomiting, no abdominal pain. NEUROLOGICAL: No headaches, no weakness, no numbness. HEMATOLOGICAL: Denies any bleeding or petechiae. GENITOURINARY: Denies any burning micturition, frequency, or urgency. MUSCULOSKELETAL/RHEUMATOLOGICAL: Denies any joint pain, swelling, or any muscle pain. ENDOCRINE: Denies any polyuria or polydipsia. The rest of the 14-point review of systems is negative. PHYSICAL EXAMINATION: GENERAL: The patient is alert and oriented x3, not in any acute distress. Well developed, well nourished. HEENT: Pupils are round and equally reacting to light. EOMI. No scleral icterus. No conjunctival pallor. Normocephalic, atraumatic. No pharyngeal erythema. No thyromegaly. CARDIOVASCULAR: S1 and S2 present. No murmurs, rubs, or gallops. PULMONARY: Bilateral rhonchi significant expiratory wheezing. ABDOMEN: Soft, nontender, nondistended, normoactive bowel sounds. No palpable organomegaly. MUSCULOSKELETAL: No joint swelling or deformity. EXTREMITIES: No cyanosis, clubbing, or pedal edema. NEUROLOGICAL: Gross neurological examination did not reveal any focal deficits. SKIN: No rashes. Assessment and plan -Sepsis: Severe: Etiology is sepsis is not clear if appears to be viral upper respiratory infection although I cannot completely rule out pneumonia urinary Legionella antigen is appropriate will also order Mycoplasma antibody continue with the antibiotics for now. Continue with IV fluids -Acute hypoxic and hypercapnic respiratory failure: Secondary to COPD exacerbation and he was systemic steroids inhalational treatments. was on BiPAP last night presently on nasal cannula oxygen -Nicotine abuse history: Counseling was provided t-acute renal failure probably due to acute tubular necrosis secondary to hypotension and possible sepsis patient will be continued on IV fluids will obtain a renal ultrasound, baseline creatinine is not available hold off on sildenafil, chlorthalidone and lisinopril. We'll also obtain urine random sodium, urine random creatinine -Elevated troponin secondary to renal failure and possible sepsis -Elevated d-dimer secondary to sepsis - ruled out pulmonary embolism -Mild pulmonary hypertension DVT prophylaxis: Continue his heparin Past Medical History Past Medical History: Hypertension History of Any Multi-Drug Resistant Organisms: None Reported Past Surgical History: No Surgical Hx Reported Smoking Status: Current some day smoker Past Alcohol Use History: Daily Additional Past Alcohol Use History / Comment(s): 2 drinks daily; pt smokes 1.5 packs a day Medications and Allergies Home Medications Medication Instructions Recorded Confirmed Type Chlorthalidone [Hygroton] 25 mg PO DAILY 01/10/21 01/10/21 History Sildenafil Citrate 50 mg PO DAILY PRN 01/10/21 01/10/21 History lisinopriL 40 mg PO DAILY 01/10/21 01/10/21 History Allergies Allergy/AdvReac Type Severity Reaction Status Date / Time No Known Allergies Allergy Verified 01/10/21 20:48 Physical Exam Vitals: Vital Signs Temp Pulse Pulse Resp BP BP BP 01/11/21 11:48 112 H 01/11/21 11:37 112 H 01/11/21 07:50 98.4 F 90 18 110/72 01/11/21 07:20 97.6 F 97 127/83 01/11/21 05:12 80 99/68 01/11/21 04:25 88 23 97/66 01/11/21 03:40 74 90/58 01/11/21 03:16 98.7 F 76 18 82/50 01/11/21 02:30 82 20 84/51 01/11/21 01:59 98.9 F 01/11/21 01:20 97/63 01/11/21 00:58 82/52 01/11/21 00:46 01/11/21 00:43 01/11/21 00:33 65/36 01/10/21 23:45 99.8 F H 105 H 23 82/51 74/43 01/10/21 23:28 102.3 F H 109 H 20 107/78 01/10/21 22:08 109 H 20 126/82 01/10/21 20:35 108 H 01/10/21 20:25 110 H 01/10/21 19:23 120 H 22 119/80 01/10/21 19:05 101.7 F H 120 H 18 127/71 Pulse Ox 01/11/21 11:48 01/11/21 11:37 01/11/21 07:50 96 01/11/21 07:20 01/11/21 05:12 97 01/11/21 04:25 96 01/11/21 03:40 97 01/11/21 03:16 94 L 01/11/21 02:30 95 01/11/21 01:59 01/11/21 01:20 01/11/21 00:58 01/11/21 00:46 92 L 01/11/21 00:43 95 01/11/21 00:33 01/10/21 23:45 91 L 01/10/21 23:28 92 L 01/10/21 22:08 93 L 01/10/21 20:35 01/10/21 20:25 01/10/21 19:23 91 L 01/10/21 19:05 80 L Intake and Output 01/10/21 01/11/21 01/11/21 22:59 06:59 14:59 Intake Total 36.811 240 Output Total 175 Balance -138.189 240 Intake: Intake, IV Titration 36.811 Amount Heparin Sod,Pork in 0.45% 36.811 NaCl 25,000 unit In 0.45 % NaCl 1 250ml.bag @ 9.18 UNITS/KG/HR 9.994 mls/hr IV .Q24H [facility] Rx#: [id number] Oral 240 Output: Urine 175 Other: Voiding Method Urinal Urinal # Voids 1 Weight 108.862 kg 112 kg Results CBC & Chem 7: 01/11/21 02:24 01/10/21 19:38 Labs: Abnormal Lab Results - Last 24 Hours (Table) 01/10/21 01/10/21 01/10/21 Range/Units 19:38 19:38 19:38 WBC 15.3 H (3.8-10.6) k/uL RBC (4.30-5.90) m/uL MCV (80.0-100.0) fL Neutrophils # 14.4 H (1.3-7.7) k/uL Lymphocytes # 0.4 L (1.0-4.8) k/uL APTT (22.0-30.0) sec D-Dimer 5.59 H (<0.60) mg/L FEU ABG pH (7.35-7.45) ABG pCO2 (35-45) mmHg ABG HCO3 (21-25) mmol/L ABG Total CO2 (19-24) mmol/L ABG O2 Saturation (94-97) % Sodium 131 L (137-145) mmol/L Chloride 92 L (98-107) mmol/L BUN 52 H (9-20) mg/dL Creatinine 2.13 H (0.66-1.25) mg/dL Glucose 117 H (74-99) mg/dL Total Bilirubin 1.7 H (0.2-1.3) mg/dL AST 62 H (17-59) U/L Creatine Kinase (55-170) U/L Troponin I (0.000-0.034) ng/mL Albumin 3.3 L (3.5-5.0) g/dL 01/10/21 01/11/21 01/11/21 Range/Units 19:38 00:27 00:27 WBC 14.4 H (3.8-10.6) k/uL RBC 4.01 L (4.30-5.90) m/uL MCV (80.0-100.0) fL Neutrophils # 13.6 H (1.3-7.7) k/uL Lymphocytes # 0.4 L (1.0-4.8) k/uL APTT 43.3 H (22.0-30.0) sec D-Dimer (<0.60) mg/L FEU ABG pH (7.35-7.45) ABG pCO2 (35-45) mmHg ABG HCO3 (21-25) mmol/L ABG Total CO2 (19-24) mmol/L ABG O2 Saturation (94-97) % Sodium (137-145) mmol/L Chloride (98-107) mmol/L BUN (9-20) mg/dL Creatinine (0.66-1.25) mg/dL Glucose (74-99) mg/dL Total Bilirubin (0.2-1.3) mg/dL AST (17-59) U/L Creatine Kinase (55-170) U/L Troponin I 0.084 H* (0.000-0.034) ng/mL Albumin (3.5-5.0) g/dL 01/11/21 01/11/21 01/11/21 Range/Units 00:27 00:27 00:45 WBC (3.8-10.6) k/uL RBC (4.30-5.90) m/uL MCV (80.0-100.0) fL Neutrophils # (1.3-7.7) k/uL Lymphocytes # (1.0-4.8) k/uL APTT (22.0-30.0) sec D-Dimer (<0.60) mg/L FEU ABG pH 7.31 L (7.35-7.45) ABG pCO2 53 H (35-45) mmHg ABG HCO3 27 H (21-25) mmol/L ABG Total CO2 28 H (19-24) mmol/L ABG O2 Saturation 97.6 H (94-97) % Sodium (137-145) mmol/L Chloride (98-107) mmol/L BUN (9-20) mg/dL Creatinine (0.66-1.25) mg/dL Glucose (74-99) mg/dL Total Bilirubin (0.2-1.3) mg/dL AST (17-59) U/L Creatine Kinase 280 H (55-170) U/L Troponin I 0.078 H* (0.000-0.034) ng/mL Albumin (3.5-5.0) g/dL 01/11/21 01/11/21 01/11/21 Range/Units 02:24 02:24 02:24 WBC 13.9 H (3.8-10.6) k/uL RBC 4.09 L (4.30-5.90) m/uL MCV 100.6 H (80.0-100.0) fL Neutrophils # 12.8 H (1.3-7.7) k/uL Lymphocytes # 0.5 L (1.0-4.8) k/uL APTT 35.1 H (22.0-30.0) sec D-Dimer (<0.60) mg/L FEU ABG pH (7.35-7.45) ABG pCO2 (35-45) mmHg ABG HCO3 (21-25) mmol/L ABG Total CO2 (19-24) mmol/L ABG O2 Saturation (94-97) % Sodium (137-145) mmol/L Chloride (98-107) mmol/L BUN (9-20) mg/dL Creatinine (0.66-1.25) mg/dL Glucose (74-99) mg/dL Total Bilirubin (0.2-1.3) mg/dL AST (17-59) U/L Creatine Kinase (55-170) U/L Troponin I 0.065 H* (0.000-0.034) ng/mL Albumin (3.5-5.0) g/dL 01/11/21 Range/Units 08:17 WBC (3.8-10.6) k/uL RBC (4.30-5.90) m/uL MCV (80.0-100.0) fL Neutrophils # (1.3-7.7) k/uL Lymphocytes # (1.0-4.8) k/uL APTT 32.6 H (22.0-30.0) sec D-Dimer (<0.60) mg/L FEU ABG pH (7.35-7.45) ABG pCO2 (35-45) mmHg ABG HCO3 (21-25) mmol/L ABG Total CO2 (19-24) mmol/L ABG O2 Saturation (94-97) % Sodium (137-145) mmol/L Chloride (98-107) mmol/L BUN (9-20) mg/dL Creatinine (0.66-1.25) mg/dL Glucose (74-99) mg/dL Total Bilirubin (0.2-1.3) mg/dL AST (17-59) U/L Creatine Kinase (55-170) U/L Troponin I (0.000-0.034) ng/mL Albumin (3.5-5.0) g/dL Thrombosis Risk Factor Assmnt - Choose All That Apply Any of the Below Risk Factors Present?: Yes Each Factor Represents 1 point: Age 41-60 years Thrombosis Risk Factor Assessment Total Risk Factor Score: 1 Thrombosis Risk Factor Assessment Level: Low Risk
[2021-01-11] MEDS: AZITHROMYCIN 500 MG TAB PO SCH (12:24)
--- NOTE | 2021-01-11 14:27 | US ---
EXAMINATION TYPE: US kidneys/renal and bladder DATE OF EXAM: 01/11/2021 COMPARISON: NONE CLINICAL HISTORY: EVI. EXAM MEASUREMENTS: Right Kidney: 13.3x6.6x6.2 cm Left Kidney: 12.8x6.7x6.2 cm Bladder empty. Right Kidney: wnl Left Kidney: wnl Bladder: Not evaluated Bilateral Jets seen: No There is no evidence for hydronephrosis at this point in time. No nephrolithiasis is seen. No angelic s are identified. Cortical medullary differentiation is maintained The urinary bladder is anechoic. Bilateral ureteral jets are seen. IMPRESSION: Normal kidneys and no hydronephrosis
[2021-01-11] MEDS: methylPREDNISolone SOD SUCCI 40 MG/ML 1 ML VIAL IV SCH ×2 (15:55→23:28)
[2021-01-11] MEDS: FORMOTEROL FUMARATE 20 MCG/2 ML NEBU INHALATION SCH (19:18)
[2021-01-11] MEDS: BUDESONIDE 1 MG/2 ML NEBU INHALATION SCH (19:18)
[2021-01-11 19:46] LABS: Glucose,Whole Blood 158 mg/dL (75-99)
[2021-01-11] MEDS: HEPARIN SODIUM,PORCINE/PF 5,000 UNIT/0.5 ML SYRINGE SQ SCH (20:00)
[2021-01-12 06:07] LABS: Glucose,Whole Blood 130 mg/dL (75-99)
[2021-01-12] MEDS: INSULIN ASPART (NovoLOG) 100 UNIT/ML VIAL SQ SCH ×4 (06:13→20:57)
[2021-01-12] MEDS: IPRATROPIUM-ALBUTEROL 3 ML NEB INHALATION SCH ×4 (08:43→20:34)
[2021-01-12] MEDS: BUDESONIDE 1 MG/2 ML NEBU INHALATION SCH ×2 (08:43→20:34)
[2021-01-12] MEDS: FORMOTEROL FUMARATE 20 MCG/2 ML NEBU INHALATION SCH ×2 (08:43→20:34)
[2021-01-12] MEDS: methylPREDNISolone SOD SUCCI 40 MG/ML 1 ML VIAL IV SCH ×3 (09:18→23:04)
[2021-01-12] MEDS: HEPARIN SODIUM,PORCINE/PF 5,000 UNIT/0.5 ML SYRINGE SQ SCH ×2 (09:19→20:56)
[2021-01-12 09:22] LABS: ALT 40 U/L (4-49); AST 97 U/L (17-59); African American GFR (CKD) >90 (>60 ml/min/1.73 sqM); Albumin 2.6 g/dL (3.5-5.0); Alkaline Phosphatase 96 U/L (38-126); Anion Gap 6 mmol/L; Blood Urea Nitrogen 26 mg/dL (9-20); Calcium 8.6 mg/dL (8.4-10.2); Carbon Dioxide 29 mmol/L (22-30); Chloride 102 mmol/L (98-107); Glucose 166 mg/dL (74-99); Non-African American GFR(CKD) >90 (>60 ml/min/1.73 sqM); Potassium 3.6 mmol/L (3.5-5.1); Sodium 137 mmol/L (137-145); Total Bilirubin 0.8 mg/dL (0.2-1.3); Total Protein 5.4 g/dL (6.3-8.2)
[2021-01-12 09:40] LABS: Basophils % (A) 0 %; Eosinophils % (A) 0 %; HCT 45.5 % (39.0-53.0); HGB 14.2 gm/dL (13.0-17.5); Lymphocytes # (A) 0.3 k/uL (1.0-4.8); Lymphocytes % (A) 2 %; MCHC 31.2 g/dL (31.0-37.0); MCV 102.7 fL (80.0-100.0); Macrocytosis Slight; Mean Platelet Volume 7.8; Monocytes # (A) 0.2 k/uL (0-1.0); Monocytes % (A) 2 %; Neutrophils # (A) 14.5 k/uL (1.3-7.7); Neutrophils % (A) 96 %; Platelet Count 257 k/uL (150-450); RBC 4.43 m/uL (4.30-5.90); WBC 15.1 k/uL (3.8-10.6)
[2021-01-12 10:20] LABS: Magnesium 2.7 mg/dL (1.6-2.3)
--- NOTE | 2021-01-12 11:15 | P.NPCON ---
History of Present Illness - Reason for Consult Consult date: 01/12/21 acute renal failure - Chief Complaint Short of breath - History of Present Illness This is a 60-year-old male seen in consultation because of an elevated creatinine. His creatinine on admission was 2.13 but with hydration has come down to 0.82. He came in because of few weeks to months of shortness of breath is getting worse. No fever chills. No nausea vomiting but his appetite was poor. No diarrhea. Denies taking any nonsteroidals. His mcnair virus PCR is negative. Although he has no history of COPD but he was a [id number] smoking. No history of prostatism kidney stones hematuria no history of taking any antibiotics. Past Medical History Past Medical History: Hypertension History of Any Multi-Drug Resistant Organisms: None Reported Past Surgical History: No Surgical Hx Reported Smoking Status: Current some day smoker Past Alcohol Use History: Daily Additional Past Alcohol Use History / Comment(s): 2 drinks daily; pt smokes 1.5 packs a day Medications and Allergies Home Medications Medication Instructions Recorded Confirmed Type Chlorthalidone [Hygroton] 25 mg PO DAILY 01/10/21 01/10/21 History Sildenafil Citrate 50 mg PO DAILY PRN 01/10/21 01/10/21 History lisinopriL 40 mg PO DAILY 01/10/21 01/10/21 History Allergies Allergy/AdvReac Type Severity Reaction Status Date / Time No Known Allergies Allergy Verified 01/10/21 20:48 Physical Exam Vitals: Vital Signs Temp Pulse Pulse Resp BP Pulse Ox 01/12/21 09:11 100 18 01/12/21 08:59 102 H 18 01/12/21 08:43 105 H 18 95 01/12/21 08:00 98.2 F 103 H 20 123/80 94 L 01/12/21 06:16 18 92 L 01/12/21 03:52 97.7 F 84 18 101/65 94 L 01/12/21 02:00 94 18 01/12/21 00:23 18 95 01/12/21 00:05 18 90 L 01/12/21 00:00 98.2 F 94 18 110/73 82 L 01/11/21 20:00 98.8 F 106 H 18 120/75 94 L 01/11/21 19:38 106 H 01/11/21 19:26 102 H 01/11/21 19:25 100 01/11/21 19:18 104 H 01/11/21 16:24 108 H 01/11/21 16:13 104 H 01/11/21 16:01 98.4 F 108 H 18 126/78 94 L 01/11/21 12:00 99.2 F 110 H 18 123/77 95 01/11/21 11:48 112 H 01/11/21 11:37 112 H Intake and Output 01/11/21 01/12/21 01/12/21 22:59 06:59 14:59 Intake Total 540 900 240 Output Total 550 1125 Balance - 240 Intake: Intake, IV Titration 900 Amount Sodium Chloride 0.9% 1, 800 000 ml @ 100 mls/hr IV . Q10H [facility] Rx#:[id number] cefTRIAXone 1 gm In 100 Sodium Chloride 0.9% 50 ml @ 100 mls/hr [facility] Rx#:[id number] Oral 540 240 Output: Urine 550 1125 Other: Voiding Method Urinal Urinal # Voids 1 Weight 114.5 kg Currently on exam he looks somewhat ill short of breath. HEENT exam, he has JVP approximately 6-8 cm, neck is supple no facial asymmetry. Lungs are significant for bilateral mild wheezing diminished air entry and occasional coarse crackles at bases Heart sounds unremarkable for any murmur rub gallop Abdomen soft nontender obese protuberant Extremity exam was significant for trace edema Neurologically awake alert oriented Results - Lab Results Most recent lab results ABG pH 7.31 (7.35-7.45) L 01/11/21 00:45 ABG pCO2 53 mmHg (35-45) H 01/11/21 00:45 ABG pO2 97 mmHg (83-108) 01/11/21 00:45 ABG HCO3 27 mmol/L (21-25) H 01/11/21 00:45 ABG O2 Saturation 97.6 % (94-97) H 01/11/21 00:45 Calcium 8.6 mg/dL (8.4-10.2) 01/12/21 08:23 Magnesium 2.7 mg/dL (1.6-2.3) H 01/12/21 08:23 01/12/21 08:23 01/12/21 08:23 Assessment and Plan Assessment: Impression 1. Acute kidney injury secondary to prerenal likely intravascular volume de pletion from low intake. Improved creatinine 0.82. 2. Chronic shortness of breath for the last few months. Chest x-ray is read as minimal atelectasis right base. Low probability lung scan, EKG is normal sinus rhythm. Hemoglobin is 14.2. Cause of his shortness of breath not clear likely from COPD 3. Low blood pressure cause not very clear Recommendation 1. Reduce IV fluids to KVO 2. Volume 20 mg of Lasix 1 dose by mouth for possibly having gone into CHF. 3. Suggest obtaining echocardiogram to explain his low blood pressure, TSH. 4. COPD management per pulmonary. We'll continue to follow and thank you for this consultation
[2021-01-12 11:18] LABS: Glucose,Whole Blood 185 mg/dL (75-99)
[2021-01-12] MEDS ORDERED: FUROSEMIDE 20 MG TAB PO STA (12:09)
[2021-01-12] MEDS: AZITHROMYCIN 500 MG TAB PO SCH (12:38)
--- NOTE | 2021-01-12 13:55 | P.PN ---
Subjective Progress Note Date: 01/12/21 Principal diagnosis: COPD exacerbation This is a 60-year-old male, who was evaluated in the emergency department, on January 10. The patient came into the emergency room, complaining of fever, and shortness of breath. Apparently, the patient has not been feeling well for a number of days. The patient did not take his temperature at home, but is felt hot and was having chills. In addition, the patient was congested, coughing, and wheezing. He did apparently also complaining of some midsternal chest pressure without radiation. The patient was admitted to the hospital because of these complaints. The patient has been smoking since the age of 20. He's been smoking 40 years at more than 1 pack of cigarettes a day. He quit smoking a day or so before he came into the hospital. He has never seen a lung doctor in the past. He has never been diagnosed with COPD. He has been seen by cardiology. The patient has not received his vaccinations against coronavirus. Apparently has only medical history is that of hypertension, and erectile dysfunction. White count 13.9, hemoglobin 13.2, hematocrit 41.1, and platelet count 212,000. The patient's PTT is 32.6. Blood gases show pO2 of 97, pCO2 53, and a pH is 7.31. This blood gases consistent with mild respiratory acidosis. The patient's CK was 280. The N-terminal proBNP was 915. The troponins were 0.078 and 0.065. [place] opinion, the chest x-rays consistent with mild fluid overload and bilateral pleural effusions and/or atelectasis. A ventilation perfusion lung scan was apparently low probability for pulmonary embolism. The echocardiogram showed an ejection fraction between 55 and 60%. There was mild tricuspid regurgitation, and mild pulmonary hypertension. This pattern is likely most consistent with underlying pulmonary disease. The patient is seen today 01/12/2021 follow-up on the selective care unit. He was in a chair at the bedside. Awake and alert in no acute distress. Breathing a bit easier today compared to yesterday. Maintaining O2 saturations in the 90s on 10 L high flow nasal cannula. He is afebrile. Hemodynamically stable. Blood cultures reveal no growth. White count 15.1. Hemoglobin 14.2. Sodium 137. Potassium 3.6. Creatinine 0.82. Send of the kidneys revealed no hydronephrosis. He is continued on DuoNeb inhalations, Pulmicort and Perforomist inhalations, IV Solu-Medrol. Antibiotics in the form of ceftriaxone and azithromycin. He did receive Lasix 20 mg IVP 1 today. Objective - Vital Signs Vital signs: Vital Signs Temp 98.2 F 01/12/21 12:00 Pulse 100 01/12/21 12:02 Resp 18 01/12/21 12:02 BP 102/67 01/12/21 12:00 Pulse Ox 90 L 01/12/21 12:00 Intake & Output 01/11/21 01/12/21 01/12/21 18:59 06:59 18:59 Intake Total 900 900 240 Output Total 1675 Balance 900 -775 240 Weight 114.5 kg Intake: Intake, IV Titration 900 Amount Sodium Chloride 0.9% 1, 800 000 ml @ 100 mls/hr IV . Q10H [facility] Rx#:[id number] cefTRIAXone 1 gm In 100 Sodium Chloride 0.9% 50 ml @ 100 mls/hr IVPB [facility] Rx#:[id number] Oral 900 240 Output: Urine 1675 Other: Voiding Method Urinal Urinal Urinal # Voids 1 1 # Bowel Movements 1 - Exam GENERAL EXAM: Alert, pleasant 60-year-old gentleman, on 10 L high flow nasal cannula, comfortable in no apparent distress. HEAD: Normocephalic. EYES: Normal reaction of pupils, equal size. NOSE: Clear with pink turbinates. THROAT: No erythema or exudates. NECK: No masses, no JVD. CHEST: No chest wall deformity. LUNGS: Equal air entry with bilateral end expiratory wheeze, diminished. CVS: S1 and S2 normal with no audible murmur, regular rhythm. ABDOMEN: No hepatosplenomegaly, normal bowel sounds, no guarding or rigidity. SPINE: No scoliosis or deformity SKIN: No rashes CENTRAL NERVOUS SYSTEM: No focal deficits, tone is normal in all 4 extremities. EXTREMITIES: There is no peripheral edema. No clubbing, no cyanosis. Peripheral pulses are intact. - Labs CBC & Chem 7: 01/12/21 08:23 01/12/21 08:23 Labs: Abnormal Lab Results - Last 24 Hours (Table) 01/11/21 01/11/21 01/11/21 Range/Units 02:06 08:17 19:42 WBC (3.8-10.6) k/uL MCV (80.0-100.0) fL Neutrophils # (1.3-7.7) k/uL Lymphocytes # (1.0-4.8) k/uL BUN (9-20) mg/dL Glucose (74-99) mg/dL POC Glucose (mg/dL) 158 H (75-99) mg/dL Magnesium (1.6-2.3) mg/dL AST (17-59) U/L Total Protein (6.3-8.2) g/dL Albumin (3.5-5.0) g/dL Procalcitonin 6.95 H (0.02-0.09) ng/mL Urine Legionella Ag Positive A (Negative) 01/12/21 01/12/21 01/12/21 Range/Units 06:03 08:23 08:23 WBC 15.1 H (3.8-10.6) k/uL MCV 102.7 H (80.0-100.0) fL Neutrophils # 14.5 H (1.3-7.7) k/uL Lymphocytes # 0.3 L (1.0-4.8) k/uL BUN 26 H (9-20) mg/dL Glucose 166 H (74-99) mg/dL POC Glucose (mg/dL) 130 H (75-99) mg/dL Magnesium 2.7 H (1.6-2.3) mg/dL AST 97 H (17-59) U/L Total Protein 5.4 L (6.3-8.2) g/dL Albumin 2.6 L (3.5-5.0) g/dL Procalcitonin (0.02-0.09) ng/mL Urine Legionella Ag (Negative) 01/12/21 Range/Units 11:16 WBC (3.8-10.6) k/uL MCV (80.0-100.0) fL Neutrophils # (1.3-7.7) k/uL Lymphocytes # (1.0-4.8) k/uL BUN (9-20) mg/dL Glucose (74-99) mg/dL POC Glucose (mg/dL) 185 H (75-99) mg/dL Magnesium (1.6-2.3) mg/dL AST (17-59) U/L Total Protein (6.3-8.2) g/dL Albumin (3.5-5.0) g/dL Procalcitonin (0.02-0.09) ng/mL Urine Legionella Ag (Negative) Microbiology - Last 24 Hours (Table) 01/10/21 19:38 Blood Culture - Preliminary Blood No Growth after 24 hours 01/10/21 19:38 Blood Culture - Preliminary Blood No Growth after 24 hours Assessment and Plan Assessment: 1 Acute hypoxic respiratory failure secondary to most likely related to underlying pulmonary disease such as COPD, for many years of tobacco use. 2 Mild pulmonary hypertension, also likely the result of underlying COPD. 3 History of ongoing tobacco use with nicotine addiction. 4 Possible mild fluid overload/CHF. Diastolic in nature with preserved LV function 5 History of hypertension. 6 History of erectile dysfunction Plan: The patient was seen and evaluated by Dr. Bowers Titrate the FiO2 as tolerated Continue the current treatment plan We'll continue to follow I, the cosigning physician, performed a history & physical examination of the patient. Lungs sounds with bilateral end expiratory wheeze. Maintaining good O2 saturations in the 90s on 10 L high flow nasal cannula. I discussed the assessment and plan of care with my nurse practitioner, Cari Mckeon. I attest to the above note as dictated by her.
[2021-01-12 16:16] LABS: Glucose,Whole Blood 180 mg/dL (75-99)
--- NOTE | 2021-01-12 19:48 | XR ---
EXAMINATION TYPE: XR chest 1V portable DATE OF EXAM: 01/12/2021 COMPARISON: 01/10/2021 HISTORY: Weakness. Short of breath TECHNIQUE: FINDINGS: There are some patchy airspace consolidation in both lower lobes and mainly on the left price e. There are old right-sided rib fractures. There is no obvious heart failure. There are chest leads. Heart size is fairly normal. There is pleural diaphragmatic scarring right lateral lung base. IMPRESSION: Bilateral pneumonia that is slightly worse than recent exam. No obvious heart failure.
--- NOTE | 2021-01-12 20:07 | PN ---
PROGRESS NOTE DATE OF SERVICE: 01/12/2010 This 60-year-old gentleman who was admitted with sepsis also had acute hypoxic hypercarbic respiratory failure. The patient also continues to be confused. Patient also was seen by multiple consultants, including Nephrology and Pulmonology. Chest x- ray showed mild fluid overload. Patient is being closely monitored. The cultures are negative so far. Past medical history reviewed. Review of systems could not be taken; the patient is confused. CURRENT MEDICATIONS: Reviewed. They include DuoNeb, Zithromax, Pulmicort, Rocephin, Perforomist. Doses and other medications are reviewed. PHYSICAL EXAMINATION: Patient is alert, oriented x Pulse 90, blood pressure 109/69, respiration 18, temperature 98.4, pulse ox 94% on room air, 86% on room air. HEENT: Conjunctivae normal. NECK: No jugular venous distention. CARDIOVASCULAR: S1, S2 muffled. RESPIRATION: Breath sounds diminished at the bases. A few scattered rhonchi and crackles. ABDOMEN: Soft, nontender. LEGS: No edema. No swelling. NERVOUS SYSTEM: No focal deficit. LABS: WBC 15.1. ASSESSMENT: 1. Chronic obstructive pulmonary disease, acute exacerbation, with acute hypoxic respiratory failure with acute purulent bronchitis. 2. Mild pulmonary hypertension. 3. Acute hypoxic and hypercapnic respiratory failure. 4. Change in mental status, metabolic encephalopathy. 5. History of nicotine dependence. 6. Elevated troponin. 7. Elevated D-dimer. 8. Mild pulmonary hypertension. 9. Acute kidney injury. RECOMMENDATIONS AND DISCUSSION: I recommend to continue current medications, continue symptomatic treatment. Closely follow. Repeat labs. Continue the antibiotics and bronchodilators. Close follow with Pulmonary. Guarded prognosis. Further recommendations to follow. See orders for details. MMODL / IJN: [id number] / MTDD
[2021-01-12 20:46] LABS: Glucose,Whole Blood 145 mg/dL (75-99)
[2021-01-12] MEDS: guaiFENesin 600 MG TABLET.ER PO SCH (20:56)
[2021-01-13 06:22] LABS: Glucose,Whole Blood 130 mg/dL (75-99)
[2021-01-13] MEDS: INSULIN ASPART (NovoLOG) 100 UNIT/ML VIAL SQ SCH ×4 (06:31→20:38)
[2021-01-13] MEDS: FORMOTEROL FUMARATE 20 MCG/2 ML NEBU INHALATION SCH ×2 (08:29→20:05)
[2021-01-13] MEDS: IPRATROPIUM-ALBUTEROL 3 ML NEB INHALATION SCH ×4 (08:29→20:05)
[2021-01-13] MEDS: methylPREDNISolone SOD SUCCI 40 MG/ML 1 ML VIAL IV SCH ×3 (08:30→23:00)
[2021-01-13] MEDS: HEPARIN SODIUM,PORCINE/PF 5,000 UNIT/0.5 ML SYRINGE SQ SCH ×2 (08:30→20:20)
[2021-01-13] MEDS: BUDESONIDE 1 MG/2 ML NEBU INHALATION SCH ×2 (08:30→20:05)
[2021-01-13] MEDS: guaiFENesin 600 MG TABLET.ER PO SCH ×2 (08:30→20:20)
[2021-01-13 08:51] LABS: Basophils % (A) 0 %; Eosinophils % (A) 0 %; HCT 43.1 % (39.0-53.0); HGB 13.6 gm/dL (13.0-17.5); Lymphocytes # (A) 0.3 k/uL (1.0-4.8); Lymphocytes % (A) 2 %; MCH 31.9 pg (25.0-35.0); MCHC 31.6 g/dL (31.0-37.0); MCV 100.9 fL (80.0-100.0); Mean Platelet Volume 7.9; Monocytes # (A) 0.4 k/uL (0-1.0); Monocytes % (A) 2 %; Neutrophils # (A) 16.3 k/uL (1.3-7.7); Neutrophils % (A) 95 %; Platelet Count 337 k/uL (150-450); RBC 4.28 m/uL (4.30-5.90); RDW 13.1 % (11.5-15.5); WBC 17.1 k/uL (3.8-10.6)
[2021-01-13 09:09] LABS: African American GFR (CKD) >90 (>60 ml/min/1.73 sqM); Anion Gap 6 mmol/L; Blood Urea Nitrogen 26 mg/dL (9-20); Calcium 9.2 mg/dL (8.4-10.2); Carbon Dioxide 33 mmol/L (22-30); Chloride 96 mmol/L (98-107); Glucose 167 mg/dL (74-99); Magnesium 2.4 mg/dL (1.6-2.3); Non-African American GFR(CKD) >90 (>60 ml/min/1.73 sqM); Potassium 3.5 mmol/L (3.5-5.1); Sodium 135 mmol/L (137-145)
--- NOTE | 2021-01-13 09:38 | P.PN ---
Subjective Progress Note Date: 01/13/21 Principal diagnosis: This is 60-year-old man seen in consultation because of acute kidney injury secondary to volume depletion. His creatinine had improved back to normal. Yesterday I gave him Lasix because of possible congestive heart failure. Chest x-ray repeat shows bilateral pneumonia. No evidence of congestive heart failure. His blood pressure was low a TSH was ordered. Blood pressure this morning seems better, 134/74 with heart rate in the 70s afebrile Objective - Vital Signs Vital signs: Vital Signs Temp 98.2 F 01/13/21 07:54 Pulse 96 01/13/21 08:52 Resp 18 01/13/21 07:54 BP 134/74 01/13/21 07:54 Pulse Ox 94 L 01/13/21 07:54 Intake & Output 01/12/21 01/13/21 01/13/21 18:59 06:59 18:59 Intake Total 1020 60 360 Output Total 600 Balance 1020 -540 360 Weight 111.5 kg Intake: IV 10 0.9 10 Intake, IV Titration 50 Amount cefTRIAXone 2 gm In 50 Sodium Chloride 0.9% 50 ml @ 100 mls/hr IVPB Q24H [facility] Rx#:[id number] Oral 1020 360 Output: Urine 600 Other: Voiding Method Urinal Urinal Urinal # Voids 1 Awake alert oriented comfortable HEENT exam no JVP neck is supple no facial asymmetry Lungs are significant for bilateral rectus all over both sides good air entry bilaterally. Heart sounds unremarkable for any murmur rub gallop Abdomen soft nontender slightly protuberant and 60 mg minimal edema Neurologically awake alert oriented sitting in a chair - Labs CBC & Chem 7: 01/13/21 08:12 01/13/21 08:12 Labs: Abnormal Lab Results - Last 24 Hours (Table) 01/12/21 01/12/21 01/12/21 Range/Units 08:23 08:23 11:16 WBC 15.1 H (3.8-10.6) k/uL RBC (4.30-5.90) m/uL MCV 102.7 H (80.0-100.0) fL Neutrophils # 14.5 H (1.3-7.7) k/uL Lymphocytes # 0.3 L (1.0-4.8) k/uL Sodium (137-145) mmol/L Chloride (98-107) mmol/L Carbon Dioxide (22-30) mmol/L BUN 26 H (9-20) mg/dL Glucose 166 H (74-99) mg/dL POC Glucose (mg/dL) 185 H (75-99) mg/dL Magnesium 2.7 H (1.6-2.3) mg/dL AST 97 H (17-59) U/L Total Protein 5.4 L (6.3-8.2) g/dL Albumin 2.6 L (3.5-5.0) g/dL 01/12/21 01/12/21 01/13/21 Range/Units 16:15 20:44 06:21 WBC (3.8-10.6) k/uL RBC (4.30-5.90) m/uL MCV (80.0-100.0) fL Neutrophils # (1.3-7.7) k/uL Lymphocytes # (1.0-4.8) k/uL Sodium (137-145) mmol/L Chloride (98-107) mmol/L Carbon Dioxide (22-30) mmol/L BUN (9-20) mg/dL Glucose (74-99) mg/dL POC Glucose (mg/dL) 180 H 145 H 130 H (75-99) mg/dL Magnesium (1.6-2.3) mg/dL AST (17-59) U/L Total Protein (6.3-8.2) g/dL Albumin (3.5-5.0) g/dL 01/13/21 01/13/21 Range/Units 08:12 08:12 WBC 17.1 H (3.8-10.6) k/uL RBC 4.28 L (4.30-5.90) m/uL MCV 100.9 H (80.0-100.0) fL Neutrophils # 16.3 H (1.3-7.7) k/uL Lymphocytes # 0.3 L (1.0-4.8) k/uL Sodium 135 L (137-145) mmol/L Chloride 96 L (98-107) mmol/L Carbon Dioxide 33 H (22-30) mmol/L BUN 26 H (9-20) mg/dL Glucose 167 H (74-99) mg/dL POC Glucose (mg/dL) (75-99) mg/dL Magnesium 2.4 H (1.6-2.3) mg/dL AST (17-59) U/L Total Protein (6.3-8.2) g/dL Albumin (3.5-5.0) g/dL Microbiology - Last 24 Hours (Table) 01/10/21 19:38 Blood Culture - Preliminary Blood No Growth after 48 hours 01/10/21 19:38 Blood Culture - Preliminary Blood No Growth after 48 hours Assessment and Plan Assessment: Impression 1. Acute kidney injury secondary to prerenal likely intravascular volume depletion from low intake. Improved creatinine 0.82. And today it is 0.75 2. Pneumonia bilateral 3. Chronic shortness of breath for the last few months. Likely from COPD and smoking 3. Low blood pressure cause not very clear, resolved Recommendation 1. Will sign off. 2. Use Lasix as needed on a when necessary basis
[2021-01-13 11:50] LABS: Glucose,Whole Blood 147 mg/dL (75-99)
[2021-01-13] MEDS: AZITHROMYCIN 500 MG TAB PO SCH (11:51)
--- NOTE | 2021-01-13 11:54 | US ---
EXAMINATION TYPE: US chest DATE OF EXAM: 01/13/2021 COMPARISON: chest xray CLINICAL HISTORY: Bilateral effusions TECHNIQUE: Targeted ultrasound of the posterior lower bilateral hemithoraces EXAM MEASUREMENTS: Right Pleural Effusion pocket size: 0.8 cm Right skin surface to fluid distance: 2.5 cm Left Pleural Effusion pocket size: 1.2 cm Left skin surface to fluid distance: 2.7 cm Small bilateral pockets, no markings. Pulmonologists are able to review the images in the patient?s EMR. IMPRESSIONS: Small bilateral pleural effusions.
--- NOTE | 2021-01-13 12:57 | P.PN ---
Subjective Progress Note Date: 01/13/21 Principal diagnosis: COPD exacerbation This is a 60-year-old male, who was evaluated in the emergency department, on January 10. The patient came into the emergency room, complaining of fever, and shortness of breath. Apparently, the patient has not been feeling well for a number of days. The patient did not take his temperature at home, but is felt hot and was having chills. In addition, the patient was congested, coughing, and wheezing. He did apparently also complaining of some midsternal chest pressure without radiation. The patient was admitted to the hospital because of these complaints. The patient has been smoking since the age of 20. He's been smoking 40 years at more than 1 pack of cigarettes a day. He quit smoking a day or so before he came into the hospital. He has never seen a lung doctor in the past. He has never been diagnosed with COPD. He has been seen by cardiology. The patient has not received his vaccinations against coronavirus. Apparently has only medical history is that of hypertension, and erectile dysfunction. White count 13.9, hemoglobin 13.2, hematocrit 41.1, and platelet count 212,000. The patient's PTT is 32.6. Blood gases show pO2 of 97, pCO2 53, and a pH is 7.31. This blood gases consistent with mild respiratory acidosis. The patient's CK was 280. The N-terminal proBNP was 915. The troponins were 0.078 and 0.065. [place] opinion, the chest x-rays consistent with mild fluid overload and bilateral pleural effusions and/or atelectasis. A ventilation perfusion lung scan was apparently low probability for pulmonary embolism. The echocardiogram showed an ejection fraction between 55 and 60%. There was mild tricuspid regurgitation, and mild pulmonary hypertension. This pattern is likely most consistent with underlying pulmonary disease. The patient is seen today 01/12/2021 follow-up on the selective care unit. He was in a chair at the bedside. Awake and alert in no acute distress. Breathing a bit easier today compared to yesterday. Maintaining O2 saturations in the 90s on 10 L high flow nasal cannula. He is afebrile. Hemodynamically stable. Blood cultures reveal no growth. White count 15.1. Hemoglobin 14.2. Sodium 137. Potassium 3.6. Creatinine 0.82. Send of the kidneys revealed no hydronephrosis. He is continued on DuoNeb inhalations, Pulmicort and Perforomist inhalations, IV Solu-Medrol. Antibiotics in the form of ceftriaxone and azithromycin. He did receive Lasix 20 mg IVP 1 today. The patient is seen today 01/13/2021 follow-up on the selective care unit. Awake and alert in no acute distress. Sitting up in a chair at the bedside. He is maintaining O2 saturation in the low 90s on 4 L/m per nasal cannula. She's been afebrile. Chest x-ray reveals bilateral patchy airspace disease was some consolidation in the lower lobes more so on the left. Ultrasound of the chest reveals minimal fluid. Blood culture reveals no growth. White count 17.1. Hemoglobin 13.6. Sodium 135. Potassium 3.5. Creatinine 0.75. He remains on DuoNeb inhalations, Pulmicort and Perforomist inhalations, IV Solu-Medrol. Antibiotics in the form of azithromycin and ceftriaxone. Continue Mucinex. Heparin for DVT prophylaxis. Objective - Vital Signs Vital signs: Vital Signs Temp 98.4 F 01/13/21 12:20 Pulse 70 01/13/21 12:20 Resp 18 01/13/21 12:20 BP 144/78 01/13/21 12:20 Pulse Ox 93 L 01/13/21 12:20 Intake & Output 01/12/21 01/13/21 01/13/21 18:59 06:59 18:59 Intake Total 1020 60 360 Output Total 600 Balance 1020 -540 360 Weight 111.5 kg Intake: IV 10 0.9 10 Intake, IV Titration 50 Amount cefTRIAXone 2 gm In 50 Sodium Chloride 0.9% 50 ml @ 100 mls/hr IVPB Q24H [facility] Rx#:[id number] Oral 1020 360 Output: Urine 600 Other: Voiding Method Urinal Urinal Urinal # Voids 1 - Exam GENERAL EXAM: Alert, pleasant 60-year-old gentleman, on 4 L high flow nasal cannula, comfortable in no apparent distress. HEAD: Normocephalic. EYES: Normal reaction of pupils, equal size. NOSE: Clear with pink turbinates. THROAT: No erythema or exudates. NECK: No masses, no JVD. CHEST: No chest wall deformity. LUNGS: Equal air entry with bilateral end expiratory wheeze, crackles in the bases, diminished. CVS: S1 and S2 normal with no audible murmur, regular rhythm. ABDOMEN: No hepatosplenomegaly, normal bowel sounds, no guarding or rigidity. SPINE: No scoliosis or deformity SKIN: No rashes CENTRAL NERVOUS SYSTEM: No focal deficits, tone is normal in all 4 extremities. EXTREMITIES: There is no peripheral edema. No clubbing, no cyanosis. Peripheral pulses are intact. - Labs CBC & Chem 7: 01/13/21 08:12 01/13/21 08:12 Labs: Abnormal Lab Results - Last 24 Hours (Table) 01/12/21 01/12/21 01/13/21 Range/Units 16:15 20:44 06:21 WBC (3.8-10.6) k/uL RBC (4.30-5.90) m/uL MCV (80.0-100.0) fL Neutrophils # (1.3-7.7) k/uL Lymphocytes # (1.0-4.8) k/uL Sodium (137-145) mmol/L Chloride (98-107) mmol/L Carbon Dioxide (22-30) mmol/L BUN (9-20) mg/dL Glucose (74-99) mg/dL POC Glucose (mg/dL) 180 H 145 H 130 H (75-99) mg/dL Magnesium (1.6-2.3) mg/dL 01/13/21 01/13/21 01/13/21 Range/Units 08:12 08:12 11:48 WBC 17.1 H (3.8-10.6) k/uL RBC 4.28 L (4.30-5.90) m/uL MCV 100.9 H (80.0-100.0) fL Neutrophils # 16.3 H (1.3-7.7) k/uL Lymphocytes # 0.3 L (1.0-4.8) k/uL Sodium 135 L (137-145) mmol/L Chloride 96 L (98-107) mmol/L Carbon Dioxide 33 H (22-30) mmol/L BUN 26 H (9-20) mg/dL Glucose 167 H (74-99) mg/dL POC Glucose (mg/dL) 147 H (75-99) mg/dL Magnesium 2.4 H (1.6-2.3) mg/dL Microbiology - Last 24 Hours (Table) 01/10/21 19:38 Blood Culture - Preliminary Blood No Growth after 48 hours 01/10/21 19:38 Blood Culture - Preliminary Blood No Growth after 48 hours Assessment and Plan Assessment: 1 Acute hypoxic respiratory failure most likely related to underlying pulmonary disease such as COPD, for many years of tobacco use. 2 Mild pulmonary hypertension, also likely the result of underlying COPD. 3 History of ongoing tobacco use with nicotine addiction. 4 Possible mild fluid overload/CHF. Diastolic in nature with preserved LV function 5 History of hypertension. 6 History of erectile dysfunction Plan: The patient was seen and evaluated by Dr. Bowers Chest x-ray, ultrasound of the chest and labs reviewed No significant pleural effusions Continue to titrate the FiO2 as tolerated Continue the current treatment plan We'll continue to follow I, the cosigning physician, performed a history & physical examination of the patient. Lungs sounds with bilateral end expiratory wheeze. Maintaining good O2 saturations in the 90s on 4 L high flow nasal cannula. I discussed the assess ment and plan of care with my nurse practitioner, Cari Mckeon. I attest to the above note as dictated by her.
[2021-01-13 16:32] LABS: Glucose,Whole Blood 173 mg/dL (75-99)
[2021-01-13 20:38] LABS: Glucose,Whole Blood 134 mg/dL (75-99)
--- NOTE | 2021-01-13 21:06 | PN ---
PROGRESS NOTE DATE OF SERVICE: January 13, 2021 This 60-year-old gentleman admitted with sepsis also had hypoxic hypercarbic respiratory failure. Patient was using CPAP. The patient had a chest x-ray yesterday which was reviewed personally by me, showed significant bilateral lesions and possible left-sided pleural effusion. A chest ultrasound was recommended for pulmonary today which showed small bilateral pleural fluids. Patient being closely monitored at this time. The patient also had pulmonary perfusion images. The creatinine has normalized at this time. No chest pain. No palpitations. No fever. Initial D-dimer was 5.59. PAST MEDICAL HISTORY: Reviewed. REVIEW OF SYSTEMS: Cardiovascular: No angina or palpitations. Respiration: As mentioned earlier. GI as mentioned earlier. : No dysuria. Nervous system: No numbness, weakness. CURRENT MEDICATIONS: Reviewed and include: DuoNeb, Zithromax, Rocephin, Mucinex, NovoLog. Doses reviewed. PHYSICAL EXAMINATION: The patient is alert and oriented times three. Pulse 70, blood pressure 140/70, respiration 18, temperature 98.4, pulse ox 93% on 4 L. HEENT: Conjunctivae normal. Neck: No JVD. Cardiovascular: S1, S2 muffled. Respiration: Breath sounds diminished in the bases. A few scattered rhonchi and crackles. Abdomen: Soft, nontender. Legs are no edema. No swelling. Nervous system: No focal deficits. LABS: WBC 17.1, sodium 130, potassium 3.5. As mentioned earlier, creatinine is normalized. ASSESSMENT: 1. Chronic obstructive pulmonary disease acute exacerbation with acute hypoxic respiratory failure with possible bilateral pneumonia with hypercarbic respiratory failure status post BiPAP. 2. Elevated D-dimer with negative V/Q scan. 3. Acute renal failure with acute tubular necrosis, present on admission. 4. Mild pulmonary hypertension. 5. Change in mental status, acute metabolic encephalopathy. 6. History of nicotine dependence. 7. Elevated troponin. 8. Elevated D-dimer. 9. FULL CODE. RECOMMENDATIONS AND DISCUSSION: This 60-year-old gentleman who presented with multiple complex medical issues, we will monitor the patient closely. I would recommend a D-dimer. If the D-dimer is elevated, I would recommend a CT angio of the chest and also IV hydration continuously afterwards. Otherwise, the prognosis guarded because of multiple complex medical issues. Further recommendations to follow. IV hydration on a careful level with 50 mL/hour and continue the bronchodilators. Continue with empiric antibiotics. Guarded prognosis. Further recommendations to follow. MMODL / IJN: [id number] /
[2021-01-13] MEDS: SODIUM CHLORIDE 0.9% 1,000 ML IV SCH (21:38)
--- NOTE | 2021-01-13 22:40 | CT ---
EXAMINATION TYPE: CT angio chest DATE OF EXAM: 01/13/2021 COMPARISON: None HISTORY: elevated d-dimer, cough, SOB CT DLP: 636.5 mGycm Automated exposure control for dose reduction was used. CONTRAST: Performed with IV Contrast, patient injected with 100 mL of Isovue 370. There are 3-D post processed images. Images obtained from the thoracic inlet to the diaphragm with IV contrast. There is extensive airspace consolidation in the left lower lobe. Heart size is fairly normal. There is no evidence of filling defect in the pulmonary arteries. There are bilateral bronchial lymph nodes that measure up to 1 cm. There are paratracheal multiple lymph nodes measuring up to 1 cm. Thoracic aorta is intact. There is no aneurysm or dissection. Thoracic spine is intact. There is no compression fracture. Sternum is intact. Upper abdominal soft t issues are intact. There are old right-sided rib fractures. IMPRESSION: No evidence of pulmonary embolism. Extensive left lower lobe pneumonia and atelectasis. Mild mediastinal and bronchial adenopathy. Pneumonia appears new compared to old CT scan of 06/20/2020 .
[2021-01-14 05:51] LABS: Mycoplasma IgG Antibody (EIA) 1.3 INDEX (<=0.90); Mycoplasma IgM Antibody 0.1 INDEX (<=0.90)
[2021-01-14 06:20] LABS: Glucose,Whole Blood 131 mg/dL (75-99)
[2021-01-14] MEDS: INSULIN ASPART (NovoLOG) 100 UNIT/ML VIAL SQ SCH ×4 (06:23→20:27)
[2021-01-14 07:48] LABS: Basophils % (A) 0 %; Eosinophils % (A) 0 %; HCT 41.9 % (39.0-53.0); HGB 13.8 gm/dL (13.0-17.5); Lymphocytes # (A) 0.4 k/uL (1.0-4.8); Lymphocytes % (A) 3 %; MCH 32.7 pg (25.0-35.0); MCHC 32.9 g/dL (31.0-37.0); MCV 99.2 fL (80.0-100.0); Mean Platelet Volume 7.5; Monocytes # (A) 0.5 k/uL (0-1.0); Monocytes % (A) 3 %; Neutrophils # (A) 14.4 k/uL (1.3-7.7); Neutrophils % (A) 93 %; Platelet Count 406 k/uL (150-450); RBC 4.23 m/uL (4.30-5.90); RDW 13.7 % (11.5-15.5); WBC 15.6 k/uL (3.8-10.6)
[2021-01-14 08:02] LABS: African American GFR (CKD) >90 (>60 ml/min/1.73 sqM); Anion Gap 3 mmol/L; Blood Urea Nitrogen 23 mg/dL (9-20); Carbon Dioxide 38 mmol/L (22-30); Chloride 100 mmol/L (98-107); Glucose 137 mg/dL (74-99); Non-African American GFR(CKD) >90 (>60 ml/min/1.73 sqM); Potassium 3.8 mmol/L (3.5-5.1); Sodium 141 mmol/L (137-145)
[2021-01-14] MEDS: BUDESONIDE 1 MG/2 ML NEBU INHALATION SCH ×2 (08:41→19:56)
[2021-01-14] MEDS: FORMOTEROL FUMARATE 20 MCG/2 ML NEBU INHALATION SCH ×2 (08:42→19:56)
[2021-01-14] MEDS: IPRATROPIUM-ALBUTEROL 3 ML NEB INHALATION SCH ×4 (08:42→19:56)
[2021-01-14] MEDS: guaiFENesin 600 MG TABLET.ER PO SCH ×2 (09:09→20:28)
[2021-01-14] MEDS: methylPREDNISolone SOD SUCCI 40 MG/ML 1 ML VIAL IV SCH ×3 (09:10→23:48)
[2021-01-14] MEDS: HEPARIN SODIUM,PORCINE/PF 5,000 UNIT/0.5 ML SYRINGE SQ SCH ×2 (09:10→20:27)
--- NOTE | 2021-01-14 11:22 | P.PN ---
Subjective Progress Note Date: 01/14/21 This is a 60-year-old male, who was evaluated in the emergency department, on January 10. The patient came into the emergency room, complaining of fever, and shortness of breath. Apparently, the patient has not been feeling well for a number of days. The patient did not take his temperature at home, but is felt hot and was having chills. In addition, the patient was congested, coughing, and wheezing. He did apparently also complaining of some midsternal chest pressure without radiation. The patient was admitted to the hospital because of these complaints. The patient has been smoking since the age of 20. He's been smoking 40 years at more than 1 pack of cigarettes a day. He quit smoking a day or so before he came into the hospital. He has never seen a lung doctor in the past. He has never been diagnosed with COPD. He has been seen by cardiology. The patient has not received his vaccinations against coronavirus. Apparently has only medical history is that of hypertension, and erectile dysfunction. White count 13.9, hemoglobin 13.2, hematocrit 41.1, and platelet count 212,000. The patient's PTT is 32.6. Blood gases show pO2 of 97, pCO2 53, and a pH is 7.31. This blood gases consistent with mild respiratory acidosis. The patient's CK was 280. The N-terminal proBNP was 915. The troponins were 0.078 and 0.065. [facility] opinion, the chest x-rays consistent with mild fluid overload and bilateral pleural effusions and/or atelectasis. A ventilation perfusion lung scan was apparently low probability for pulmonary embolism. The echocardiogram showed an ejection fraction between 55 and 60%. There was mild tricuspid regurgitation, and mild pulmonary hypertension. This pattern is likely most consistent with underlying pulmonary disease. The patient is seen today 01/12/2021 follow-up on the selective care unit. He was in a chair at the bedside. Awake and alert in no acute distress. Breathing a bit easier today compared to yesterday. Maintaining O2 saturations in the 90s on 10 L high flow nasal cannula. He is afebrile. Hemodynamically stable. Blood cultures reveal no growth. White count 15.1. Hemoglobin 14.2. Sodium 137. Potassium 3.6. Creatinine 0.82. Send of the kidneys revealed no hydronephrosis. He is continued on DuoNeb inhalations, Pulmicort and Perforomist inhalations, IV Solu-Medrol. Antibiotics in the form of ceftriaxone and azithromycin. He did receive Lasix 20 mg IVP 1 today. The patient is seen today 01/13/2021 follow-up on the selective care unit. Awake and alert in no acute distress. Sitting up in a chair at the bedside. He is maintaining O2 saturation in the low 90s on 4 L/m per nasal cannula. She's been afebrile. Chest x-ray reveals bilateral patchy airspace disease was some consolidation in the lower lobes more so on the left. Ultrasound of the chest reveals minimal fluid. Blood culture reveals no growth. White count 17.1. Hemoglobin 13.6. Sodium 135. Potassium 3.5. Creatinine 0.75. He remains on DuoNeb inhalations, Pulmicort and Perforomist inhalations, IV Solu-Medrol. Antibiotics in the form of azithromycin and ceftriaxone. Continue Mucinex. Heparin for DVT prophylaxis. 2020, the patient is being seen for a follow-up. This patient was hospitalized with extensive left lower lobe pneumonia and acute kidney injury. Kidney functions recovered. In terms of his pneumonia, the patient was given a combination of Rocephin and Zithromax. Further testing indicated the patient's Legionella urine antigen was positive. The patient had a computed tomography scan of the chest that showed extensive and FRACTURED ribs on the right, old fractures. He is feeling slightly better compared to yesterday. He remains on oxygen at 3 L. His white cell count is gradually improving. He remains on DuoNeb nebulized treatments around the clock, IV Solu-Medrol, Perforomist and Pulmicort neb last 2 minutes twice a day and he is also on Mucinex for cough and congestion. He remains on heparin subcu for DVT prophylaxis. In terms of his blood work, the patient is having a white cell count of 15.6. Hemoglobin is at 15.4. His d-dimer was at 7.1. Resume blood work was essentially within normal limits. Objective - Vital Signs Vital signs: Vital Signs Temp 98.2 F 01/14/21 09:06 Pulse 88 01/14/21 09:09 Resp 20 01/14/21 09:06 BP 133/83 01/14/21 09:06 Pulse Ox 92 L 01/14/21 09:06 Intake & Output 01/13/21 01/14/21 01/14/21 18:59 06:59 18:59 Intake Total 1140 150 240 Output Total 925 Balance 1140 -775 240 Intake: IV 100 0.9 100 Intake, IV Titration 50 Amount cefTRIAXone 2 gm In 50 Sodium Chloride 0.9% 50 ml @ 100 mls/hr IVPB Q24H [facility] Rx#:[id number] Oral 1140 240 Output: Urine 925 Other: Voiding Method Urinal Toilet Toilet Urinal Urinal # Voids 1 1 - Exam GENERAL EXAM: Alert, pleasant 60-year-old gentleman, on 3 L high flow nasal cannula, comfortable in no apparent distress. HEAD: Normocephalic. EYES: Normal reaction of pupils, equal size. NOSE: Clear with pink turbinates. THROAT: No erythema or exudates. NECK: No masses, no JVD. CHEST: No chest wall deformity. LUNGS: Equal air entry with bilateral end expiratory wheeze, crackles in the bases, diminished. CVS: S1 and S2 normal with no audible murmur, regular rhythm. ABDOMEN: No hepatosplenomegaly, normal bowel sounds, no guarding or rigidity. SPINE: No scoliosis or deformity SKIN: No rashes CENTRAL NERVOUS SYSTEM: No focal deficits, tone is normal in all 4 extremities. EXTREMITIES: There is no peripheral edema. No clubbing, no cyanosis. Peripheral pulses are intact. - Labs CBC & Chem 7: 01/14/21 07:23 01/14/21 07:23 Labs: Abnormal Lab Results - Last 24 Hours (Table) 01/10/21 01/13/21 01/13/21 Range/Units 19:38 11:48 16:30 WBC (3.8-10.6) k/uL RBC (4.30-5.90) m/uL Neutrophils # (1.3-7.7) k/uL Lymphocytes # (1.0-4.8) k/uL D-Dimer (<0.60) mg/L FEU Carbon Dioxide (22-30) mmol/L BUN (9-20) mg/dL Glucose (74-99) mg/dL POC Glucose (mg/dL) 147 H 173 H (75-99) mg/dL Mycoplasma pneumon IgG 1.30 H (<=0.90) INDEX 09/26/21 09/26/21 09/27/21 Range/Units 19:05 20:36 06:19 WBC (3.8-10.6) k/uL RBC (4.30-5.90) m/uL Neutrophils # (1.3-7.7) k/uL Lymphocytes # (1.0-4.8) k/uL D-Dimer 7.13 H (<0.60) mg/L FEU Carbon Dioxide (22-30) mmol/L BUN (9-20) mg/dL Glucose (74-99) mg/dL POC Glucose (mg/dL) 134 H 131 H (75-99) mg/dL Mycoplasma pneumon IgG (<=0.90) INDEX 01/14/21 01/14/21 Range/Units 07:23 07:23 WBC 15.6 H (3.8-10.6) k/uL RBC 4.23 L (4.30-5.90) m/uL Neutrophils # 14.4 H (1.3-7.7) k/uL Lymphocytes # 0.4 L (1.0-4.8) k/uL D-Dimer (<0.60) mg/L FEU Carbon Dioxide 38 H (22-30) mmol/L BUN 23 H (9-20) mg/dL Glucose 137 H (74-99) mg/dL POC Glucose (mg/dL) (75-99) mg/dL Mycoplasma pneumon IgG (<=0.90) INDEX Microbiology - Last 24 Hours (Table) 01/13/21 11:16 Gram Stain - Preliminary Sputum Sputum Culture - Preliminary 01/10/21 19:38 Blood Culture - Preliminary Blood No Growth after 72 hours 01/10/21 19:38 Blood Culture - Preliminary Blood No Growth after 72 hours Assessment and Plan Plan: 1 left lower lobe Legionella pneumonia with secondary acute hypoxic respiratory failure 2 acute COPD exacerbation secondary to above 3 History of ongoing tobacco use with nicotine addiction. 4 Possible mild fluid overload/CHF. Diastolic in nature with preserved LV function 5 History of hypertension. 6 History of erectile dysfunction 7 acute kidney injury, recovered 8 obesity 9 ex-smoker 10 mild leukocytosis Plan: Is a case of Legionella pneumonia. Needs to be further investigated for the source of an infection. He has been in several hotels and [place], [place] Repeat chest x-ray in the morning Continue bronchodilators Continue steroids She is mobility Continue Zithromax and switch this patient to Levaquin 750 mg by mouth daily incentive spirometer We'll continue to follow.
[2021-01-14] MEDS: LEVOFLOXACIN 750 MG TAB PO SCH (11:56)
[2021-01-14 12:04] LABS: Glucose,Whole Blood 142 mg/dL (75-99)
[2021-01-14 15:00] VITALS: RESP 18
--- NOTE | 2021-01-14 15:03 | P.PN ---
Subjective Progress Note Date: 01/14/21 This is a pleasant 52-year-old gentleman who was admitted with sepsis. Patient also had hypoxic hypercapnic respiratory failure. Patient had a CTA of his chest completed yesterday due to an elevated d-dimer, cough and short of breath. There was no evidence of pulmonary embolism. There is extensive left lower lobe pneumonia and atelectasis. There was mild mediastinal and bronchial adenopathy. Pneumonia appears new compared to old CT in June 2020. Patient is being follow closely by pulmonary services, and is currently on DuoNeb's, IV Solu-Medrol Perforomist and Pulmicort, Mucinex. White blood cell count today is 15.6, CO2 38, creatinine 0.77, BUN 23. Covert was negative, mycoplasma IgM was within normal limits, patient was positive for a urine Legionella antigen. Patient does admit to traveling recently last month to [facility] and staying in different hotels. Antibiotics have been changed to Levaquin 750 by mouth daily. Patient's vital signs are stable today, afebrile 98.2, heart rate 80s sinus rhythm, blood pressure 133/83. 92% on 3 L nasal cannula. Patient does not wear oxygen at home. He will need a walking O2 test prior to discharge. ROS: Constitutional: Denied any fatigue denied any fever. Cardio vascular: denied any chest pain, palpitations Gastrointestinal denied any nausea vomiting Pulmonary: Denied any shortness of breath, reports cough without sputum production Neurologic denied any new focal deficits All inpatient medications were reviewed and appropriate changes in these medications as dictated in the interval history and assessment and plan. PHYSICAL EXAMINATION: GENERAL: The patient is alert and oriented x3, not in any acute distress. Well developed, well nourished. HEENT: Pupils are round and equally reacting to light. EOMI. No scleral icterus. No conjunctival pallor. Normocephalic, atraumatic. No pharyngeal erythema. No thyromegaly. CARDIOVASCULAR: S1 and S2 present. No murmurs, rubs, or gallops. PULMONARY: Chest is clear to auscultation, no wheezing or crackles. ABDOMEN: Soft, nontender, nondistended, normoactive bowel sounds. No palpable organomegaly. MUSCULOSKELETAL: No joint swelling or deformity. EXTREMITIES: No cyanosis, clubbing, or pedal edema. NEUROLOGICAL: Gross neurological examination did not reveal any focal deficits. SKIN: No rashes. Assessment and plan Assessment -Chronic obstructive pulmonary disease acute exacerbation with acute hypoxic respiratory failure with possible bilateral pneumonia with hypercarbic respiratory failure status post BiPAP -Left lower lobe Legionella pneumonia with secondary acute hypoxic respiratory failure Sepsis: Severe: Etiology is sepsis is not clear if appears to be viral upper respiratory infection although I cannot completely rule out pneumonia urinary Legionella antigen is appropriate will also order Mycoplasma antibody continue with the antibiotics for now. Continue with IV fluids -Acute hypoxic and hypercapnic respiratory failure: Secondary to COPD exacerbation and he was systemic steroids inhalational treatments -Nicotine abuse history: Counseling was provided -acute renal failure probably due to acute tubular necrosis s/t hypotension -Elevated troponin secondary to renal failure and possible sepsis -Elevated d-dimer secondary to sepsis -Elevated d-dimer 7.13, CTA negative for PE -Leukocytosis, assessment 15.6 today, related to pneumonia with possible sepsis, present on admission -Mild pulmonary hypertension -Possible acute on chronic diastolic congestive heart failure, EF 55-60% -Hyperglycemia without a history of diabetes, related to steroid use continue with sliding scale DVT prophylaxis: Continu subcu heparin FULL CODE Plan Continue gentle hydration, monitor labs. Continue with inhalers, Pulmicort, Perforomist, Mucinex, Levaquin, IV Solu Medrol. Patient's antihypertensives have been placed on hold at this time. Continue sliding scale NovoLog coverage. Continue to monitor vital signs. Repeat labs in the morning. Objective - Vital Signs Vital signs: Vital Signs Temp 98.2 F 01/14/21 09:06 Pulse 80 01/14/21 12:17 Resp 20 01/14/21 09:06 BP 133/83 01/14/21 09:06 Pulse Ox 92 L 01/14/21 09:06 Intake & Output 01/13/21 01/14/21 01/14/21 18:59 06:59 18:59 Intake Total 1140 150 240 Output Total 925 400 Balance 1140 -775 -160 Intake: IV 100 0.9 100 Intake, IV Titration 50 Amount cefTRIAXone 2 gm In 50 Sodium Chloride 0.9% 50 ml @ 100 mls/hr IVPB Q24H [facility] Rx#:[id number] Oral 1140 240 Output: Urine 925 400 Other: Voiding Method Urinal Toilet Toilet Urinal Urinal # Voids 1 1 - Labs CBC & Chem 7: 01/14/21 07:23 01/14/21 07:23 Labs: Abnormal Lab Results - Last 24 Hours (Table) 01/10/21 01/13/21 01/13/21 Range/Units 19:38 16:30 19:05 WBC (3.8-10.6) k/uL RBC (4.30-5.90) m/uL Neutrophils # (1.3-7.7) k/uL Lymphocytes # (1.0-4.8) k/uL D-Dimer 7.13 H (<0.60) mg/L FEU Carbon Dioxide (22-30) mmol/L BUN (9-20) mg/dL Glucose (74-99) mg/dL POC Glucose (mg/dL) 173 H (75-99) mg/dL Mycoplasma pneumon IgG 1.30 H (<=0.90) INDEX 01/13/21 01/14/21 01/14/21 Range/Units 20:36 06:19 07:23 WBC 15.6 H (3.8-10.6) k/uL RBC 4.23 L (4.30-5.90) m/uL Neutrophils # 14.4 H (1.3-7.7) k/uL Lymphocytes # 0.4 L (1.0-4.8) k/uL D-Dimer (<0.60) mg/L FEU Carbon Dioxide (22-30) mmol/L BUN (9-20) mg/dL Glucose (74-99) mg/dL POC Glucose (mg/dL) 134 H 131 H (75-99) mg/dL Mycoplasma pneumon IgG (<=0.90) INDEX 01/14/21 01/14/21 Range/Units 07:23 11:53 WBC (3.8-10.6) k/uL RBC (4.30-5.90) m/uL Neutrophils # (1.3-7.7) k/uL Lymphocytes # (1.0-4.8) k/uL D-Dimer (<0.60) mg/L FEU Carbon Dioxide 38 H (22-30) mmol/L BUN 23 H (9-20) mg/dL Glucose 137 H (74-99) mg/dL POC Glucose (mg/dL) 142 H (75-99) mg/dL Mycoplasma pneumon IgG (<=0.90) INDEX Microbiology - Last 24 Hours (Table) 01/13/21 11:16 Gram Stain - Preliminary Sputum Sputum Culture - Preliminary 01/10/21 19:38 Blood Culture - Preliminary Blood No Growth after 72 hours 01/10/21 19:38 Blood Culture - Preliminary Blood No Growth after 72 hours Assessment and Plan Time with Patient: Greater than 30
[2021-01-14 16:58] LABS: Glucose,Whole Blood 127 mg/dL (75-99)
[2021-01-14] MEDS: SODIUM CHLORIDE 0.9% 1,000 ML IV SCH (17:04)
[2021-01-14 19:39] LABS: Glucose,Whole Blood 195 mg/dL (75-99)
[2021-01-15] MEDS ORDERED: hydrALAZINE HCL 20 MG/ML 1 ML VIAL IVP STA (04:56)
[2021-01-15 06:23] LABS: Glucose,Whole Blood 121 mg/dL (75-99)
[2021-01-15 07:29] LABS: Basophils % (A) 0 %; Eosinophils % (A) 0 %; HCT 44.5 % (39.0-53.0); Lymphocytes # (A) 0.5 k/uL (1.0-4.8); Lymphocytes % (A) 4 %; MCHC 31.5 g/dL (31.0-37.0); MCV 101.6 fL (80.0-100.0); Macrocytosis Slight; Mean Platelet Volume 7.7; Monocytes # (A) 0.4 k/uL (0-1.0); Monocytes % (A) 3 %; Neutrophils # (A) 11.6 k/uL (1.3-7.7); Neutrophils % (A) 91 %; Platelet Count 397 k/uL (150-450); RBC 4.38 m/uL (4.30-5.90); RDW 13.3 % (11.5-15.5); WBC 12.7 k/uL (3.8-10.6)
[2021-01-15] MEDS: INSULIN ASPART (NovoLOG) 100 UNIT/ML VIAL SQ SCH ×2 (07:30→13:22)
[2021-01-15 07:39] LABS: African American GFR (CKD) >90 (>60 ml/min/1.73 sqM); Anion Gap 3 mmol/L; Blood Urea Nitrogen 24 mg/dL (9-20); Calcium 8.9 mg/dL (8.4-10.2); Carbon Dioxide 37 mmol/L (22-30); Chloride 101 mmol/L (98-107); Glucose 134 mg/dL (74-99); Non-African American GFR(CKD) >90 (>60 ml/min/1.73 sqM); Potassium 3.8 mmol/L (3.5-5.1); Sodium 141 mmol/L (137-145)
[2021-01-15] MEDS: BUDESONIDE 1 MG/2 ML NEBU INHALATION SCH (07:48)
[2021-01-15] MEDS: FORMOTEROL FUMARATE 20 MCG/2 ML NEBU INHALATION SCH (07:48)
[2021-01-15] MEDS: IPRATROPIUM-ALBUTEROL 3 ML NEB INHALATION SCH ×3 (07:48→14:44)
--- NOTE | 2021-01-15 07:50 | XR ---
EXAMINATION TYPE: XR chest 1V portable DATE OF EXAM: 01/15/2021 COMPARISON: Chest x-ray dated 01/12/2021 HISTORY: Left lower lobe pneumonia TECHNIQUE: Single frontal view of the chest is obtained. FINDINGS: Findings are similar to prior exam, left hemidiaphragms obscured, basilar density is prese nt with blunting the costophrenic angles. Old traumatic changes of the right hemithorax, multiple rib fractures are again seen. There are overlying leads. There is no evident pneumothorax. Cardiac media stinal silhouette shows a similar appearance. Interstitium appears prominently. IMPRESSION: Correlate for pneumonia, effusion, difficult to exclude a component of interstitial libertad a.
[2021-01-15 08:17] VITALS: TEMP 98
[2021-01-15] MEDS: LEVOFLOXACIN 750 MG TAB PO SCH (08:18)
[2021-01-15] MEDS: guaiFENesin 600 MG TABLET.ER PO SCH (08:18)
[2021-01-15] MEDS: methylPREDNISolone SOD SUCCI 40 MG/ML 1 ML VIAL IV SCH ×2 (08:18→15:42)
[2021-01-15] MEDS: HEPARIN SODIUM,PORCINE/PF 5,000 UNIT/0.5 ML SYRINGE SQ SCH (08:19)
[2021-01-15] MEDS ORDERED: POTASSIUM CHLORIDE ER 20 MEQ TAB.ER PO SCH (09:00)
[2021-01-15 10:59] VITALS: PULSE 72
[2021-01-15] MEDS ORDERED: lisinopriL 20 MG TAB PO SCH (11:00)
[2021-01-15 12:00] LABS: Glucose,Whole Blood 127 mg/dL (75-99)
[2021-01-15] MEDS ORDERED: FUROSEMIDE 10 MG/ML 4 ML VIAL IV STA (12:10)
--- NOTE | 2021-01-15 12:15 | P.PN ---
Subjective Progress Note Date: 01/15/21 This is a 60-year-old male, who was evaluated in the emergency department, on January 10. The patient came into the emergency room, complaining of fever, and shortness of breath. Apparently, the patient has not been feeling well for a number of days. The patient did not take his temperature at home, but is felt hot and was having chills. In addition, the patient was congested, coughing, and wheezing. He did apparently also complaining of some midsternal chest pressure without radiation. The patient was admitted to the hospital because of these complaints. The patient has been smoking since the age of 20. He's been smoking 40 years at more than 1 pack of cigarettes a day. He quit smoking a day or so before he came into the hospital. He has never seen a lung doctor in the past. He has never been diagnosed with COPD. He has been seen by cardiology. The patient has not received his vaccinations against coronavirus. Apparently has only medical history is that of hypertension, and erectile dysfunction. White count 13.9, hemoglobin 13.2, hematocrit 41.1, and platelet count 212,000. The patient's PTT is 32.6. Blood gases show pO2 of 97, pCO2 53, and a pH is 7.31. This blood gases consistent with mild respiratory acidosis. The patient's CK was 280. The N-terminal proBNP was 915. The troponins were 0.078 and 0.065. [facility] opinion, the chest x-rays consistent with mild fluid overload and bilateral pleural effusions and/or atelectasis. A ventilation perfusion lung scan was apparently low probability for pulmonary embolism. The echocardiogram showed an ejection fraction between 55 and 60%. There was mild tricuspid regurgitation, and mild pulmonary hypertension. This pattern is likely most consistent with underlying pulmonary disease. The patient is seen today 01/12/2021 follow-up on the selective care unit. He was in a chair at the bedside. Awake and alert in no acute distress. Breathing a bit easier today compared to yesterday. Maintaining O2 saturations in the 90s on 10 L high flow nasal cannula. He is afebrile. Hemodynamically stable. Blood cultures reveal no growth. White count 15.1. Hemoglobin 14.2. Sodium 137. Potassium 3.6. Creatinine 0.82. Send of the kidneys revealed no hydronephrosis. He is continued on DuoNeb inhalations, Pulmicort and Perforomist inhalations, IV Solu-Medrol. Antibiotics in the form of ceftriaxone and azithromycin. He did receive Lasix 20 mg IVP 1 today. The patient is seen today 01/13/2021 follow-up on the selective care unit. Awake and alert in no acute distress. Sitting up in a chair at the bedside. He is maintaining O2 saturation in the low 90s on 4 L/m per nasal cannula. She's been afebrile. Chest x-ray reveals bilateral patchy airspace disease was some consolidation in the lower lobes more so on the left. Ultrasound of the chest reveals minimal fluid. Blood culture reveals no growth. White count 17.1. Hemoglobin 13.6. Sodium 135. Potassium 3.5. Creatinine 0.75. He remains on DuoNeb inhalations, Pulmicort and Perforomist inhalations, IV Solu-Medrol. Antibiotics in the form of azithromycin and ceftriaxone. Continue Mucinex. Heparin for DVT prophylaxis. 2020, the patient is being seen for a follow-up. This patient was hospitalized with extensive left lower lobe pneumonia and acute kidney injury. Kidney functions recovered. In terms of his pneumonia, the patient was given a combination of Rocephin and Zithromax. Further testing indicated the patient's Legionella urine antigen was positive. The patient had a computed tomography scan of the chest that showed extensive and FRACTURED ribs on the right, old fractures. He is feeling slightly better compared to yesterday. He remains on oxygen at 3 L. His white cell count is gradually improving. He remains on DuoNeb nebulized treatments around the clock, IV Solu-Medrol, Perforomist and Pulmicort neb last 2 minutes twice a day and he is also on Mucinex for cough and congestion. He remains on heparin subcu for DVT prophylaxis. In terms of his blood work, the patient is having a white cell count of 15.6. Hemoglobin is at 15.4. His d-dimer was at 7.1. Resume blood work was essentially within normal limits. On today's evaluation, the patient is being seen for a follow-up. This patient was diagnosed having a left lower lobe pneumonia secondary to Legionella pneumonia. Legionella urine antigen was negative. The repeat chest x-ray today and it showed improvement in left lower lobe consolidation although there is no complete clearing. The patient had old right-sided rib fractures. The patient remains on oral Levaquin 750 mg by mouth daily. He is on 3 L of oxygen by nasal cannula with a pulse ox of 90%. He is afebrile. His blood work from today is showing a white cell count of 4.7. Hemoglobin is at 14. Electrolytes are essentially within normal limits with a BUN of 24 and a creatinine of 0 point. He has a serum bicarb of 37 probably related to chronic hypercapnic respiratory failure. He does have features of obstructive sleep apnea as the patient is obese and has a BMI of 34.0. No other complaints otherwise for now. No altered mentation. No diarrhea. No nausea or vomiting. No other complaints. Objective - Vital Signs Vital signs: Vital Signs Temp 98.0 F 01/15/21 08:17 Pulse 72 01/15/21 10:59 Resp 18 01/15/21 08:17 BP 156/87 01/15/21 08:17 Pulse Ox 90 L 01/15/21 08:17 Intake & Output 01/14/21 01/15/21 01/15/21 18:59 06:59 18:59 Intake Total 240 Output Total 400 Balance -160 Weight 113.8 kg Intake: Oral 240 Output: Urine 400 Other: Voiding Method Toilet Toilet Toilet Urinal Urinal Urinal # Voids 1 1 - Exam GENERAL EXAM: Alert, pleasant 60-year-old gentleman, on 3 L high flow nasal cannula, comfortable in no apparent distress. HEAD: Normocephalic. EYES: Normal reaction of pupils, equal size. NOSE: Clear with pink turbinates. THROAT: No erythema or exudates. NECK: No masses, no JVD. CHEST: No chest wall deformity. LUNGS: Equal air entry with bilateral end expiratory wheeze, crackles in the bases, diminished. CVS: S1 and S2 normal with no audible murmur, regular rhythm. ABDOMEN: No hepatosplenomegaly, normal bowel sounds, no guarding or rigidity. SPINE: No scoliosis or deformity SKIN: No rashes CENTRAL NERVOUS SYSTEM: No focal deficits, tone is normal in all 4 extremities. EXTREMITIES: There is no peripheral edema. No clubbing, no cyanosis. Peripheral pulses are intact. - Labs CBC & Chem 7: 01/15/21 07:01 01/15/21 07:01 Labs: Abnormal Lab Results - Last 24 Hours (Table) 01/14/21 01/14/21 01/15/21 Range/Units 16:56 19:37 06:21 WBC (3.8-10.6) k/uL MCV (80.0-100.0) fL Neutrophils # (1.3-7.7) k/uL Lymphocytes # (1.0-4.8) k/uL Carbon Dioxide (22-30) mmol/L BUN (9-20) mg/dL Creatinine (0.66-1.25) mg/dL Glucose (74-99) mg/dL POC Glucose (mg/dL) 127 H 195 H 121 H (75-99) mg/dL 01/15/21 01/15/21 01/15/21 Range/Units 07:01 07:01 11:58 WBC 12.7 H (3.8-10.6) k/uL MCV 101.6 H (80.0-100.0) fL Neutrophils # 11.6 H (1.3-7.7) k/uL Lymphocytes # 0.5 L (1.0-4.8) k/uL Carbon Dioxide 37 H (22-30) mmol/L BUN 24 H (9-20) mg/dL Creatinine 0.63 L (0.66-1.25) mg/dL Glucose 134 H (74-99) mg/dL POC Glucose (mg/dL) 127 H (75-99) mg/dL Microbiology - Last 24 Hours (Table) 01/13/21 11:16 Gram Stain - Final Sputum Sputum Culture - Final 01/10/21 19:38 Blood Culture - Preliminary Blood No Growth after 96 hours 01/10/21 19:38 Blood Culture - Preliminary Blood No Growth after 96 hours 01/14/21 15:00 Legionella Culture - Preliminary Sputum Assessment and Plan Plan: 1 left lower lobe Legionella pneumonia with secondary acute hypoxic respiratory failure, the patient is clinically feeling much better and a chest x-ray showing improvement in left lower lobe consolidation. The patient is currently on Levaquin. 2 acute COPD exacerbation secondary to above 3 History of ongoing tobacco use with nicotine addiction. 4 Possible mild fluid overload/CHF. Diastolic in nature with preserved LV function 5 History of hypertension. 6 History of erectile dysfunction 7 acute kidney injury, recovered 8 obesity 9 ex-smoker 10 mild leukocytosis Plan: Continue oral Levaquin Follow-up chest x-ray was noted and there is improvement in the left lower lobe consolidation Continue bronchodilators Continue steroids Increase mobility Consider sending this patient home on oxygen to be followed up on outpatient basis regarding his pneumonia recovery. No smoking. Discharge and smoking cessation counseling was done. incentive spirometer, is being utilized and the patient is pulling approximately 2000 on the incentive spirometer. We'll continue to follow.
[2021-01-15 12:28] VITALS: BP 160/90
== END 2021-01-15 17:03 | disposition home or self-care (01) | DRG 871 ==
LOC: EC 19:02 → 3SCARD 21:22
PROVIDERS: ADMIT Hospitalist; ATTEND Hospitalist
PROC: 5A09457 Assistance with Respiratory Ventilation, 24-96 Consecutive Hours, Continuous Positive Airway Pressure (ICD-10-PCS; principal; 2021-01-11)
DX: A41.59 Other Gram-negative sepsis (principal); N17.0 Acute kidney failure with tubular necrosis; J96.21 Acute and chronic respiratory failure with hypoxia; J96.22 Acute and chronic respiratory failure with hypercapnia; R65.21 Severe sepsis with septic shock; G93.41 Metabolic encephalopathy; I50.33 Acute on chronic diastolic (congestive) heart failure; A48.1 Legionnaires' disease; E87.2 Acidosis; J90 Pleural effusion, not elsewhere classified; J44.0 Chronic obstructive pulmonary disease with (acute) lower respiratory infection; J44.1 Chronic obstructive pulmonary disease with (acute) exacerbation; E87.1 Hypo-osmolality and hyponatremia; J98.11 Atelectasis; I27.20 Pulmonary hypertension, unspecified; I11.0 Hypertensive heart disease with heart failure; Z20.822 Contact with and (suspected) exposure to COVID-19; J20.9 Acute bronchitis, unspecified; G47.33 Obstructive sleep apnea (adult) (pediatric); R73.9 Hyperglycemia, unspecified; T38.0X5A Adverse effect of glucocorticoids and synthetic analogues, initial encounter; E86.9 Volume depletion, unspecified; N52.9 Male erectile dysfunction, unspecified; I07.1 Rheumatic tricuspid insufficiency; E66.9 Obesity, unspecified; Z68.34 Body mass index [BMI] 34.0-34.9, adult; R59.9 Enlarged lymph nodes, unspecified; R77.8 Other specified abnormalities of plasma proteins; F17.210 Nicotine dependence, cigarettes, uncomplicated; Z71.6 Tobacco abuse counseling; Z79.899 Other long term (current) drug therapy; Z87.81 Personal history of (healed) traumatic fracture
CPT/HCPCS: 36415; 36600; 71045; 71046; 71275; 76604; 76770; 78580; 80048; 80053; 82550; 82570; 82805; 83605; 83735; 83880; 84145; 84300; 84484; 85025; 85379; 85610; 85730; 86738; 87040; 87070; 87205; 87449; 87635; 93005; 93306; 94640; 94660; 94667; 94760; 96361; 96374; 99285

== ENCOUNTER 2023-09-23 17:28 | Emergency (ER) | payer SELFPAY ==
[2023-09-23 17:43] VITALS: TEMP 98.5
[2023-09-23 18:29] LABS: ALT 18 U/L (4-49); AST 21 U/L (17-59); African American GFR (CKD) >90 (>60 ml/min/1.73 sqM); Albumin 4.1 g/dL (3.5-5.0); Alkaline Phosphatase 87 U/L (38-126); Anion Gap 3 mmol/L; Blood Urea Nitrogen 18 mg/dL (9-20); Calcium 9.5 mg/dL (8.4-10.2); Carbon Dioxide 35 mmol/L (22-30); Chloride 102 mmol/L (98-107); Glucose 74 mg/dL (74-99); Magnesium 2.2 mg/dL (1.6-2.3); Non-African American GFR(CKD) 88 (>60 ml/min/1.73 sqM); Phosphorus 4.1 mg/dL (2.5-4.5); Potassium 4.1 mmol/L (3.5-5.1); Sodium 140 mmol/L (137-145); Total Bilirubin 1.1 mg/dL (0.2-1.3); Total Protein 7.1 g/dL (6.3-8.2)
[2023-09-23 18:44] LABS: Basophils % (A) 1 %; Eosinophils # (A) 0.1 k/uL (0-0.7); Eosinophils % (A) 1 %; HGB 18.9 gm/dL (13.0-17.5); Lymphocytes # (A) 1.3 k/uL (1.0-4.8); Lymphocytes % (A) 20 %; MCH 31.5 pg (25.0-35.0); MCV 101.4 fL (80.0-100.0); Macrocytosis Slight; Mean Platelet Volume 7.4; Monocytes # (A) 0.6 k/uL (0-1.0); Monocytes % (A) 9 %; Neutrophils # (A) 4.4 k/uL (1.3-7.7); Neutrophils % (A) 67 %; Platelet Count 187 k/uL (150-450); RBC 6.01 m/uL (4.30-5.90); RDW 13.7 % (11.5-15.5); WBC 6.6 k/uL (3.8-10.6)
[2023-09-23 18:47] LABS: HCT 60.9 % (39.0-53.0)
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
[2023-09-23] MEDS: SODIUM CHLORIDE 0.9% 500 ML BAG IV STA (21:47)
[2023-09-23 22:16] VITALS: BP 146/107; PULSE 70; RESP 18
== END 2023-09-23 22:18 | disposition home or self-care (01) ==
LOC: EC 17:28
DX: D75.1 Secondary polycythemia (principal); F17.200 Nicotine dependence, unspecified, uncomplicated
CPT/HCPCS: 36415; 80053; 83735; 84100; 85025; 99283

== ENCOUNTER 2024-01-11 17:47 | Inpatient (IN) | payer OTHER ==
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
[2024-01-11 19:01] LABS: Basophils % (A) 1 %; Eosinophils % (A) 1 %; HCT 55.9 % (39.0-53.0); Hypochromasia Moderate; Lymphocytes # (A) 0.7 k/uL (1.0-4.8); Lymphocytes % (A) 10 %; MCH 30.5 pg (25.0-35.0); MCHC 30.5 g/dL (31.0-37.0); MCV 99.9 fL (80.0-100.0); Mean Platelet Volume 7.6; Monocytes # (A) 0.9 k/uL (0-1.0); Monocytes % (A) 13 %; Neutrophils # (A) 5.2 k/uL (1.3-7.7); Neutrophils % (A) 75 %; Platelet Count 199 k/uL (150-450); RBC 5.59 m/uL (4.30-5.90)
[2024-01-11 19:10] LABS: INR 1.6 (<1.2)
[2024-01-11 19:11] LABS: Partial Thromboplastin Time 25.8 sec (22.0-30.0)
[2024-01-11 19:19] LABS: NT-Pro-B-Type Natriuretic Pept 8560 pg/mL
--- NOTE | 2024-01-11 19:19 | CT ---
EXAMINATION TYPE: CT brain wo con DATE OF EXAM: 01/11/2024 COMPARISON: None HISTORY: ams, weakness, confusion CT DLP: 1188.3 mGycm Automated exposure control for dose reduction was used. FINDINGS: There is a large area of decreased density in the right occipital lobe and hippocampal region consist ent with an acute to subacute infarct. There is no acute bleed or mass effect. Posterior fossa is grossly normal. Intraorbital contents appear normal symmetric. Visualized paranasal sinuses and mastoid air cells are well aerated IMPRESSION: ACUTE TO SUBACUTE INFARCT INVOLVING THE RIGHT OCCIPITAL LOBE AND HIPPOCAMPUS IN THE DISTRIBUTION OF T HE RIGHT POSTERIOR CEREBRAL ARTERY. THERE IS NO ACUTE INTRA OR EXTRA-AXIAL HEMORRHAGE. THERE IS NO MA SS EFFECT OR SHIFT OF THE MIDLINE STRUCTURES. [facility], Workstation: PK 01/11/2024 7:16 PM
[2024-01-11 19:20] LABS: VBG PH 7.34 (7.31-7.41)
[2024-01-11 19:20] LABS: ALT 16 U/L (4-49); AST 21 U/L (17-59); African American GFR (CKD) >90 (>60 ml/min/1.73 sqM); Albumin 3.7 g/dL (3.5-5.0); Alkaline Phosphatase 87 U/L (38-126); Anion Gap 2 mmol/L; Blood Urea Nitrogen 23 mg/dL (9-20); Calcium 9.1 mg/dL (8.4-10.2); Carbon Dioxide 36 mmol/L (22-30); Chloride 102 mmol/L (98-107); Glucose 92 mg/dL (74-99); Non-African American GFR(CKD) >90 (>60 ml/min/1.73 sqM); Sodium 140 mmol/L (137-145); Total Bilirubin 1.8 mg/dL (0.2-1.3); Total Protein 6.9 g/dL (6.3-8.2)
[2024-01-11 19:21] LABS: Potassium 4.1 mmol/L (3.5-5.1)
--- NOTE | 2024-01-11 19:27 | CT ---
EXAMINATION TYPE: CT chest angio for PE DATE OF EXAM: 01/11/2024 COMPARISON: None HISTORY: weakness, ams CT DLP: 673.6 mGycm Automated exposure control for dose reduction was used. CONTRAST: CT Chest for pulmonary embolism performed with with IV Contrast, patient injected with 100 ml mL of I sovue 370. FINDINGS: There is volume loss in the right hemithorax with elevation right hemidiaphragm and question of parti al lobectomy on the right. There is some architectural distortion with scattered interstitial density which appears chronic. There is deformity of a few right ribs. There is a 5.5 mm nodule in the left upper lobe which is stable. There is no airspace consolidation. There is no pleural effusion or pneumothorax. The great vessels are normal. There are no filling defects arterial circulation to suggest pulmonary embolism. Limited scanning through the upper abdomen reveals mild ascites. IMPRESSION: 1. No evidence of pulmonary embolism. 2. Volume loss on the right as above. 3. 5.5 mm left upper lobe nodule... 4. No acute cardiopulmonary disease. 5. Mild ascites. [facility], Workstation: PK, 01/11/2024 7:25 PM
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
[2024-01-11] MEDS: FUROSEMIDE 10 MG/ML 4 ML VIAL IV STA (19:49)
[2024-01-11] MEDS: IPRATROPIUM-ALBUTEROL 3 ML NEB INHALATION STA (19:55)
[2024-01-11 20:28] LABS: Appearance,Urine Clear (Clear); Bilirubin,Urine Negative (Negative); Blood,Urine Negative (Negative); Color,Urine Colorless; Glucose,Urine (UA) Negative (Negative); Ketones,Urine Negative (Negative); Leukocyte Esterase,Urine Negative (Negative); Nitrite,Urine Negative (Negative); PH, Urine 5.5 (5.0-8.0); Protein,Urine Negative (Negative); Specific Gravity,Urine 1.021 (1.001-1.035); Urobilinogen,Urine <2.0 mg/dL (<2.0)
[2024-01-11] MEDS: ASPIRIN 325 MG TAB PO STA (20:34)
[2024-01-11] MEDS: FUROSEMIDE 10 MG/ML 4 ML VIAL IV SCH (20:39)
--- NOTE | 2024-01-11 21:32 | US ---
EXAMINATION TYPE: US carotid duplex BILAT DATE OF EXAM: 01/11/2024 COMPARISON: NONE CLINICAL INDICATION: Male, 63 years old with history of Stenosis; Patient states dizziness TECHNIQUE: Carotid duplex ultrasound examination. Indirect Doppler criteria was utilized. FINDINGS: EXAM MEASUREMENTS: RIGHT: Peak Systolic Velocity (PSV) cm/sec ----- Right CCA: 66.4 ----- Right ICA: 111.3 ----- Right ECA: 54.8 ICA/CCA ratio: 1.7 RIGHT: End Diastole cm/sec ----- Right CCA: 26.0 ----- Right ICA: 53.1 ----- Right ECA: 8.7 LEFT: Peak Systolic Velocity (PSV) cm/sec ----- Left CCA: 99.0 ----- Left ICA: 114.1 ----- Left ECA: 102.3 ICA/CCA ratio: 1.2 LEFT: End Diastole cm/sec ----- Left CCA: 34.5 ----- Left ICA: 76.6 ----- Left ECA: 11.6 VERTEBRALS (direction of flow): Right Vertebral: Antegrade Left Vertebral: Antegrade Rhythm: Normal WAITER/WAITRESS NOTES: No elevated velocities. Small amount of plaque seen bilateral bifurcation IMPRESSION: 1. Minimal carotid bifurcation plaque. 2. No significant stenosis based on peak systolic velocities and ratios are: Grayscale imaging of the carotid trifurcations or proximal internal carotid arteries. Criteria for Assigning % of Stenosis / Diameter reduction (Estimation based on the indirect measurements of the internal carotid artery velocities (ICA PSV). 1. Normal (no stenosis)=ICA PSV < 125 cm/s: ratio < 2.0: ICA EDV<40 cm/s. 2. Less than 50% stenosis=ICA PSV < 125 cm/s: ratio < 2.0: ICA EDV<40 cm/s. 3. 50 to 69% stenosis=ICA PSV of 125 to 230 cm/s: ration 2.0 ? 4.0: ICA EDV 40-100 cm/s. 4. Greater than 70% stenosis to near occlusion= ICA PSV > 230 cm/s: ratio > 4.0: ICA EDV > 100 cm/s. 5. Near occlusion= ICA PSV velocities may be low or undetectable: variable ratio and ICA EDV. 6. Total occlusion=unable to detect flow. [facility], Workstation: PK, 01/11/2024 9:30 PM
[2024-01-11] MEDS: BUDESONIDE 1 MG/2 ML NEBU INHALATION SCH (21:36)
[2024-01-11] MEDS: ACETAMINOPHEN TAB 500 MG TAB PO STA (21:41)
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
[2024-01-12] MEDS: ATORVASTATIN 80 MG TAB PO ONE (02:00)
[2024-01-12 02:33] LABS: HGB 16.2 gm/dL (13.0-17.5); Hypochromasia Marked; MCH 29.6 pg (25.0-35.0); MCHC 29.1 g/dL (31.0-37.0); Macrocytosis Slight; Mean Platelet Volume 7.1; Platelet Count 184 k/uL (150-450); RBC 5.46 m/uL (4.30-5.90); RDW 13.6 % (11.5-15.5); WBC 6.5 k/uL (3.8-10.6)
[2024-01-12 02:49] LABS: African American GFR (CKD) >90 (>60 ml/min/1.73 sqM); Anion Gap 3 mmol/L; Blood Urea Nitrogen 21 mg/dL (9-20); Calcium 8.8 mg/dL (8.4-10.2); Carbon Dioxide 39 mmol/L (22-30); Chloride 99 mmol/L (98-107); Glucose 91 mg/dL (74-99); Non-African American GFR(CKD) >90 (>60 ml/min/1.73 sqM); Potassium 3.7 mmol/L (3.5-5.1); Sodium 141 mmol/L (137-145)
[2024-01-12 02:51] LABS: HCT 55.7 % (39.0-53.0)
[2024-01-12] MEDS: lisinopriL 20 MG TAB PO SCH (08:00)
[2024-01-12] MEDS: ASPIRIN 325 MG TAB PO SCH (08:00)
[2024-01-12 09:23] LABS: ABG Base Excess 11.1 mmol/L; ABG Oxygen Saturation 87.6 % (94-97); ABG PH 7.33 (7.35-7.45); ABG TCO2 44 mmol/L (19-24); Allen Test Performed? Yes
[2024-01-12] MEDS: FORMOTEROL FUMARATE 20 MCG/2 ML NEBU INHALATION SCH (09:25)
[2024-01-12] MEDS: IPRATROPIUM-ALBUTEROL 3 ML NEB INHALATION PRN (09:25)
[2024-01-12 09:32] LABS: ABG HCO3 42 mmol/L (21-25); ABG PCO2 80 mmHg (35-45); ABG PO2 56 mmHg (83-108)
[2024-01-12] MEDS: CHLORTHALIDONE 25 MG TAB PO SCH (10:42)
[2024-01-12 10:55] LABS: Chol/HDL Ratio 3.48 Ratio; VLDL Calculation 19.02 mg/dL (5.00-40.00)
--- NOTE | 2024-01-12 11:23 | US ---
EXAMINATION TYPE: US venous doppler duplex LE BI DATE OF EXAM: 01/12/2024 10:32 AM Exam done portable COMPARISON: NONE CLINICAL INDICATION: Male, 63 years old with history of swelling; SIDE PERFORMED: Bilateral TECHNIQUE: The lower extremity deep venous system is examined utilizing real time linear array sonog zaheer with graded compression, doppler sonography and color-flow sonography. VESSELS IMAGED: Common Femoral Vein Deep Femoral Vein Greater Saphenous Vein * Femoral Vein Popliteal Vein Small Saphenous Vein * Proximal Calf Veins (* superficial vessels) Right Leg: Appears negative for DVT Left Leg: Appears negative for DVT IMPRESSION: 1. No diagnostic evidence of DVT. [facility], , 01/12/2024 11:21 AM
[2024-01-12] MEDS: methylPREDNISolone SOD SUCCI 40 MG/ML 1 ML VIAL IV SCH (11:47)
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
[2024-01-12] MEDS: IPRATROPIUM-ALBUTEROL 3 ML NEB INHALATION SCH (12:28)
[2024-01-12] MEDS ORDERED: LORazepam 2 MG/ML INJ IV PRN ×3 (12:51)
[2024-01-12] MEDS ORDERED: LORazepam 0.5 MG TAB PO PRN (12:51)
[2024-01-12] MEDS ORDERED: LORazepam 1 MG TAB PO PRN (12:51)
--- NOTE | 2024-01-12 13:10 | P.PN ---
Subjective Progress Note Date: 01/12/24 Hospital course: Patient is a pleasant 63-year-old male with a past medical history of hypertension, daily alcohol abuse and nicotine dependence. He presented to the emergency department with a chief complaint of persistent dizziness and lower extremity edema. Patient reported the symptoms began a few weeks ago and have persistently worsened. Upon arrival to our facility, patient underwent evaluation in the emergency department. Vital signs upon arrival show blood pressure 135/95, heart rate 84, respiratory rate 18, temp 97.9 F and SpO2 of 84% on room air increasing to 93% on 4 L supplemental oxygen. EKG completed showing normal sinus rhythm at 82 bpm with T wave inversion in leads III, aVF, and V2 through V6. Chest x-ray completed showing healed trauma to right hemithorax with multiple healed right fractures and chronic blunting of the right costophrenic angle with possible small right pleural effusion. CT brain revealing acute to subacute infarct involving the right occipital lobe and hypothalamus in the distribution of the right posterior cerebral artery. Labs were completed and reviewed. CBC unremarkable. Coagulation profile showing elevated PT of 16.0, INR 1.6, and elevated D-dimer of 5.14. pH showing hype rcarbia with bicarb of 36 and mild prerenal azotemia with BUN of 23. Lactic acid was normal findings at 1.3. Blood glucose was 92. Magnesium 2.0. Liver profile showing hyperbilirubinemia with total bili of 1.8. Troponin was elevated at 0.511 with proBNP of 8560. Chest CTA was completed negative for pulmonary emboli showing a 5.5 mm left upper lobe nodule and mild ascites. Carotid Dopplers completed showing minimal carotid bifurcation plaque with no significant stenosis. Bilateral venous Dopplers then completed negative for DVT. Patient was admitted under services with consultation to cardiology and neurology. Overnight patient's respiratory status worsened and he was again found to be 85% on 4 L O2 and requiring placement on continuous BiPAP. ABG was obtained showing respiratory acidosis with pH 7.33, pCO2 of 80, PaO2 56%, bicarb 42, total CO2 of 44, and ABG O2 saturation of 87.6%. Consult was also placed to tray worker at this time. Physical exam: Patient seen and fully evaluated at bedside. Order placed for continuous BiPAP secondary to acute respiratory failure with hypoxia and hypercarbia. Patient reports feeling dizzy, short of breath, and complains of bilateral lower extremi ty edema. He denies having any chest pain, palpitations, or experiencing any numbness/tingling/weakness in his extremities. He denies noticing any difficulties with or changes in his speech. Patient appears to have peripheral visual deficits out of right and left eye, unclear on baseline. Vital signs reviewed and stable. General: Nontoxic, no distress and appears stated age. Derm: Skin warm and dry, normal coloration for ethnicity. Head: Atraumatic, normocephalic and symmetric. Eyes: EOM's intact, no lid lag, and anicteric sclera Mouth: no lip lesions, mucus membranes moist Cardiovascular: regular rate and rhythm with normal S1S2, no murmur, positive posterior tibial pulses bilaterally, and cap refill < 2 seconds. Lungs: Respirations even, regular, and slightly labored on BiPAP.. Lungs diminished, no rhonchi, no rales, no wheezing. Abdominal: soft distended, nontender to palpation, no guarding, no appreciable organomegaly Ext: ROM intact. No gross muscle atrophy, bilateral lower extremity edema, no contractures Neuro: Speech clear, face symmetrical and CN II-XII grossly intact with no noted focal neuro deficits Psych: Alert and oriented to person, place, time, and situation. Appropriate and pleasant affect. Assessment and Plan of Care: Acute respiratory failure with hypoxia and hypercarbia NSTEMI Acute congestive heart failure, unknown type pending echocardiogram Acute/subacute ischemic stroke, right posterior cerebral artery Hypertension Nicotine dependence -Orders placed for stat ABG along with continuous BiPAP with IPAP of 12, EPAP 56, FiO2 35% and to be titrated accordingly to keep SpO2 equal to or greater than 90%. -Consult placed to tray worker, appreciate recommendations -Cardiology following, appreciate recommendations -Neurology following, discussed case with Dr. Bowers in detail. -Patient to remain on continuous telemetry monitoring with close monitoring of vital signs and pulse oximetry. -Continue NIH scores every shift with neurochecks every 4 hours. -Consult placed to PT/OT for evaluation as well as to speech and language pathologist secondary to acute/subacute CVA. -TSH, lipid profile and hemoglobin A1c to be obtained. -Continue Plavix 75 mg daily, aspirin 81 mg daily and atorvastatin 80 mg nightly. -Continue IV diuretics with Lasix 40 mg IVP every 12 hours pending further recommendations from driller and broacher. -Echocardiogram completed currently pending results. -MRI brain without contrast to be obtained. -Recommend smoking cessation and order placed for nicotine patch 21 mg daily. Alcohol abuse -Order placed for monitoring of CIWA scores and patient to be medicated with Ativan 0.5 mg every 4 hours as needed for CIWA score of 4-5, Ativan 1 mg every 4 hours for CIWA score of 6-7, Ativan 2 mg every 3 hours CIWA score of 8-9, and Ativan 2 mg every 2 hours forr CIWA score of 10 or greater. -Continuous IV hydration. -Thiamine 100 mg daily, and Multivitamin daily, and Folate 1 mg daily -Continue seizure and fall precautions. -Continued close monitoring of electrolytes and replace as needed. -Telemetry monitoring. Data and imaging reviewed: -Chest CTA was completed negative for pulmonary emboli showing a 5.5 mm left upper lobe nodule and mild ascites. -Carotid Dopplers completed showing minimal carotid bifurcation plaque with no significant stenosis. -Bilateral venous Dopplers then completed negative for DVT. -ABG was obtained showing respiratory acidosis with pH 7.33, pCO2 of 80, PaO2 56%, bicarb 42, total CO2 of 44, and ABG O2 saturation of 87.6%. -Morning vital signs reviewed. Blood pressure 90/57, heart rate 93, respiratory rate 20, temp 98.1 F, and SpO2 of 86% on 4 L. Patient requiring placement on continuous BiPAP with SpO2 increasing to 88% on BiPAP and after approximately 5 minutes, SpO2 increasing to 91%. -Labs reviewed. CBC showing macrocytosis with MCV of 102.0 otherwise normal findings. ABG as stated above. BMP showing hypercarbia with bicarb of 39 and elevated BUN of 21. Blood glucose 91. Repeat troponin 0.432. Lipid profile unremarkable with the exception of low HDL of 31. CODE STATUS: Full code DVT prophylaxis: Heparin Anticipated discharge date: Pending clinical course Anticipated discharge place: Home Patient was seen independently by Nurse Pracitioner. This document was prepared using [employer] dictation software. Please allow for errors in forming department end finder, while rare they do occur. I reviewed the documentation as provided by the AMAN above, who is the original author of this note. I agree with the documented assessment and plan, with the following changes: none Objective - Vital Signs Vital signs: Vital Signs Temp 98.1 F 01/12/24 07:30 Pulse 93 09/24/24 07:30 Resp 21 01/12/24 07:47 BP 125/84 01/12/24 07:55 Pulse Ox 88 L 01/12/24 07:47 FiO2 35 01/12/24 07:47 Intake & Output 01/11/24 01/12/24 01/12/24 18:59 06:59 18:59 Intake Total 540 Output Total 1650 Balance -1110 Weight 113.398 kg 116.7 kg Intake: Oral 540 Output: Urine 1650 Other: Voiding Method Toilet # Voids 3 - Labs CBC & Chem 7: 01/16/24 06:39 01/16/24 06:39 Labs: Abnormal Lab Results - Last 24 Hours (Table) 01/11/24 01/11/24 01/11/24 Range/Units 18:36 18:36 18:36 Hct 55.9 H (39.0-53.0) % MCV (80.0-100.0) fL MCHC 30.5 L (31.0-37.0) g/dL Lymphocytes # 0.7 L (1.0-4.8) k/uL PT 16.0 H (10.0-12.5) sec INR 1.6 H (<1.2) D-Dimer 5.14 H (<0.60) mg/L FEU VBG pCO2 (37-51) mmHg VBG HCO3 (24-28) mmol/L Carbon Dioxide 36 H (22-30) mmol/L BUN 23 H (9-20) mg/dL Total Bilirubin 1.8 H (0.2-1.3) mg/dL Troponin I (0.000-0.034) ng/mL 01/11/24 01/11/24 01/12/24 Range/Units 18:36 19:15 02:13 Hct (39.0-53.0) % MCV (80.0-100.0) fL MCHC (31.0-37.0) g/dL Lymphocytes # (1.0-4.8) k/uL PT (10.0-12.5) sec INR (<1.2) D-Dimer (<0.60) mg/L FEU VBG pCO2 69 H (37-51) mmHg VBG HCO3 37 H (24-28) mmol/L Carbon Dioxide 39 H (22-30) mmol/L BUN 21 H (9-20) mg/dL Total Bilirubin (0.2-1.3) mg/dL Troponin I 0.511 H* (0.000-0.034) ng/mL 01/12/24 01/12/24 Range/Units 02:13 02:13 Hct 55.7 H (39.0-53.0) % MCV 102.0 H (80.0-100.0) fL MCHC 29.1 L (31.0-37.0) g/dL Lymphocytes # (1.0-4.8) k/uL PT (10.0-12.5) sec INR (<1.2) D-Dimer (<0.60) mg/L FEU VBG pCO2 (37-51) mmHg VBG HCO3 (24-28) mmol/L Carbon Dioxide (22-30) mmol/L BUN (9-20) mg/dL Total Bilirubin (0.2-1.3) mg/dL Troponin I 0.432 H* (0.000-0.034) ng/mL
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
[2024-01-12] MEDS: CLOPIDOGREL 75 MG TAB PO SCH (15:38)
[2024-01-12] MEDS: MULTIVITAMINS, THERA 1 EACH TAB PO SCH (15:38)
[2024-01-12] MEDS: THIAMINE 100 MG TAB PO SCH (15:38)
[2024-01-12] MEDS: FOLIC ACID 1 MG TAB PO SCH (15:38)
[2024-01-12] MEDS: NICOTINE 21MG/24HR PATCH TRANSDERM SCH (15:39)
[2024-01-12] MEDS: THIAMINE 100 MG/ML 2 ML VIAL IM STA (16:17)
[2024-01-12] MEDS: HEPARIN SODIUM,PORCINE 5,000 UNIT/ML 1 ML VIAL SQ SCH (20:19)
[2024-01-12] MEDS: ATORVASTATIN 80 MG TAB PO SCH (20:19)
[2024-01-12] MEDS ORDERED: IPRATROPIUM-ALBUTEROL 3 ML NEB INHALATION PRN (20:50)
--- NOTE | 2024-01-13 06:59 | CA ---
Transthoracic Echo Report Name: Law Azul Age: 63 Gender: M : 1960 Exam Date: 01/12/2024 08:23 Exam Location: [facility] Ht (in): 72 Wt (lb): 250 Ordering Physician: Janak Ball MD Attending/Referring Phys: Cylinder Loader Elizabeth Calzada RDCS Procedure CPT: Indications: chf Cardiac Hx: Technical Quality: Fair Contrast 1: Total Dose (mL): Contrast 2: Total Dose (mL): MEASUREMENTS (Male / Female) Normal Values 2D ECHO LV Diastolic Diameter PLAX 4.0 cm 4.2 - 5.9 / 3.9 - 5.3 cm LV Systolic Diameter PLAX 2.4 cm IVS Diastolic Thickness 1.4 cm 0.6 - 1.0 / 0.6 - 0.9 cm LVPW Diastolic Thickness 1.4 cm 0.6 - 1.0 / 0.6 - 0.9 cm LV Relative Wall Thickness 0.7 RV Internal Dim ED PLAX 4.6 cm LA Systolic Diameter LX 4.2 cm 3.0 - 4.0 / 2.7 - 3.8 cm LA Volume 59.2 cm??? 18 - 58 / 22 - 52 cm??? LA Volume Index 24.3 cm???/m??? 16 - 28 cm???/m??? M-MODE Aortic Root Diameter MM 3.8 cm AV Cusp Separation MM 2.6 cm DOPPLER AV Peak Velocity 146.5 cm/s AV Peak Gradient 8.6 mmHg MV Area PHT 3.6 cm??? Mitral E Point Velocity 81.7 cm/s Mitral A Point Velocity 98.3 cm/s Mitral E to A Ratio 0.8 MV Deceleration Time 208.9 ms TR Peak Velocity 306.1 cm/s TR Peak Gradient 37.5 mmHg Right Ventricular Systolic Press 59.0 mmHg FINDINGS Left Ventricle Left ventricular ejection fraction is estimated at 50-55 %. Moderately increased septal wall thickness. No obvious regional wall motion abnormalities. Right Ventricle Severe right ventricular dilatation. Severe pulmonary hypertension. Right ventricular systolic pressure estimated at 59 mm hg. Moderately reduced right ventricular global systolic function. Right Atrium Severe right atrial dilatation. No right atrial thrombus or mass seen. Left Atrium Mildly increased left atrial diameter. Mildly increased left atrial volume. Mildly increased left atrial area. Mitral Valve Structurally normal mitral valve. No mitral stenosis, regurgitation or prolapse. Aortic Valve Trileaflet aortic valve. No aortic valve stenosis or regurgitation. Tricuspid Valve Structurally normal tricuspid valve. Moderate tricuspid regurgitation. Pulmonic Valve Structurally normal pulmonic valve. No pulmonic regurgitation. Pericardium No pericardial or pleural effusion. Aorta Mild aortic dilatation at the level of the sinuses of valsalva 38 mm CONCLUSIONS Normal LV systolic function Severe pulmonary hypertension Severely enlarged right ventricle with moderately reduced RV systolic function Moderate tricuspid regurgitation Previewed by: Dr. Toby Cedillo MD (Electronically Signed) Final Date: 13 January 2024 06:59
[2024-01-13 08:14] LABS: African American GFR (CKD) >90 (>60 ml/min/1.73 sqM); Blood Urea Nitrogen 27 mg/dL (9-20); Calcium 8.5 mg/dL (8.4-10.2); Chloride 92 mmol/L (98-107); Glucose 181 mg/dL (74-99); Non-African American GFR(CKD) >90 (>60 ml/min/1.73 sqM); Sodium 141 mmol/L (137-145)
[2024-01-13 08:22] LABS: Anion Gap 3 mmol/L; NT-Pro-B-Type Natriuretic Pept 6670 pg/mL
[2024-01-13 08:24] LABS: Potassium 3.5 mmol/L (3.5-5.1)
[2024-01-13 08:25] LABS: Carbon Dioxide 46 mmol/L (22-30)
[2024-01-13] MEDS: IPRATROPIUM-ALBUTEROL 3 ML NEB INHALATION SCH (08:55)
--- NOTE | 2024-01-13 09:50 | P.PN ---
Subjective Progress Note Date: 01/13/24 History of present illness: This is a 63-year-old male with past medical history of hypertension, COPD, alcohol abuse, tobacco use and dependence. We have been asked to evaluate the patient for NSTEMI. Patient is currently on BiPAP somewhat somnolent but answers a few questions. He states that he came into the hospital because he was confused and he also had shortness of breath. He states that been going on for couple of days with generalized weakness. He denies having any chest pain. He is a smoker currently of 1/3 pack/day. No cough no wheezing. He does have lower extremity edema. No nausea or vomiting. No bleeding. No history of stroke or seizure. He does drink caffeine daily and he does drink alcohol regularly but not every day. He gets most of his medical care at the [facility]. He states he feels a little bit better from yesterday. Blood pressure 125/84, heart rate 93, pulse ox 88% on BiPAP. EKG: Sinus rhythm with anterior T wave abnormalities Chest x-ray: Laboratory studies: WBC 6.5, hemoglobin 16.2. D-dimer 5.14. Home cardiac medications: Amlodipine 2.5 mg daily, chlorthalidone 25 mg daily, lisinopril 40 mg daily Echocardiogram performed in 2020 revealed normal EF 01/12 Patient is seen today in follow-up. He is sitting up in bed awake and alert, multiple family members are at the bedside. Patient states that he is feeling much better today. He denies having any chest pain, no shortness of breath. Lower extremity edema is improved. He is on IV Lasix 40 mg twice daily. Heart rate is in the 90s, pulse ox 94% on 4 L nasal cannula, blood pressure 130/84. Repeat blood work reveals sodium 141, potassium 3.5, CO2 46, BUN 27 creatinine 0.83. proBNP 6670. Patient has a negative fluid balance and documented weight loss. Echocardiogram reveals EF of 50 to 55%, severe pulmonary hypertension, severely enlarged right ventricle with moderately reduced RV systolic function, moderate tricuspid regurgitation. Results of echocardiogram reviewed with the patient. Physical examination: Gen: This is a 63-year-old male appears to be in no acute distress VS: reviewed HEENT: Head is atraumatic, normocephalic. Pupils equal, round. Sclerae is anicteric. NECK: Supple. No JVD. LUNGS: Decreased air exchange. No intercostal retractions. HEART: Regular rate and rhythm. Systolic murmur. ABDOMEN: Soft No tenderness. EXTREMITIES: Bilateral lower extremity edema is improved. No calf tenderness. NEUROLOGICAL: Patient is awake, alert and oriented x 3. 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 Patient was seen and examined. Objective - Vital Signs Vital signs: Vital Signs Temp 97.8 F 01/13/24 04:00 Pulse 94 01/13/24 08:55 Resp 18 01/13/24 04:00 BP 130/84 01/13/24 04:00 Pulse Ox 94 L 01/13/24 08:59 FiO2 35 01/13/24 00:22 Intake & Output 01/12/24 01/13/24 01/13/24 18:59 06:59 18:59 Intake Total 540 540 Output Total 2900 800 Balance -2360 -260 Weight 112.2 kg Intake: Oral 540 Other 540 Output: Urine 2900 800 Other: Voiding Method Urinal Urinal # Voids 1 - Labs CBC & Chem 7: 01/12/24 02:13 01/13/24 06:54 Labs: Abnormal Lab Results - Last 24 Hours (Table) 01/12/24 01/12/24 01/13/24 Range/Units 02:13 09:20 06:54 ABG pH 7.33 L (7.35-7.45) ABG pCO2 80 H* (35-45) mmHg ABG pO2 56 L* (83-108) mmHg ABG HCO3 42 H* (21-25) mmol/L ABG Total CO2 44 H (19-24) mmol/L ABG O2 Saturation 87.6 L (94-97) % Chloride 92 L (98-107) mmol/L Carbon Dioxide 46 H* (22-30) mmol/L BUN 27 H (9-20) mg/dL Glucose 181 H (74-99) mg/dL HDL Cholesterol 31.00 L (40.00-60.00) mg/dL
[2024-01-13] MEDS: ASPIRIN 81 MG PO SCH (10:15)
--- NOTE | 2024-01-13 13:50 | P.PN ---
Subjective Progress Note Date: 01/13/24 This is a 63-year-old male patient who came into the emergency department because of worsening shortness of breath. The patient did complain of some increased shortness of breath. However, he had other complaints including feeling weak and dizzy and over the past few days, he has been having falls. Th e patient did not lose any consciousness. Denies having any focal neurological deficit. He did note also some increased lower extremity edema. He came into the emergency room for further evaluation. Denied having any chest pain. No fever or chills. In the emergency, he underwent a CAT scan of the brain that showed a subacute right occipital infarct and hippocampal infarct and this is attributed to right posterior cerebral artery involvement. He underwent also a chest x-ray that showed healed right sided rib fractures along with some chronic scarring and thickening of the right pleura and volume loss in the right lung base. Based on that, the patient was given a CT angiogram of the chest that showed no evidence of any pulmonary embolism. Similar volume loss was seen in the right lung base and a 5 mm nodule in the left upper lobe and some chronic scarring along the right hemithorax/pleura with elevation of the right hemidiaphragm. Noted the patient had a previous history of an extensive left lower lobe pneumonia back in 2020 and this was attributed to Legionella from which she recovered. I also noted some increased lower extremity edema. There is also some limited cellulitis in the lower extremities involving the anterior shins bilaterally. No previous history of DVT or pulmonary embolism. Carotid Dopplers were also done and it showed no hemodynamically significant stenosis. Earlier this morning, the patient becomes more short of breath. Blood gas was done and showed a pH of 7.33 with a pCO2 of 80 and pO2 of 56. Based on that, the patient was placed on a BiPAP at a pressure of 12/6 with an FiO2 of 35%. Currently, he is on bronchodilators. He is also on IV Solu-Medrol 40 mg every 8 hours. He is less bronchospastic and wheezy. He admits to drinking appr oximately 20-24 bottles of beer on a weekly basis. He smokes around 1 pack of cigarettes a day every 2 to 3 days. 01/13/2024, the patient is feeling much better. The patient is currently off the BiPAP. The patient is currently on oxygen at 4 L/min nasal cannula with a pulse ox of 95%. No significant chest pain. There is improvement in lower extremity edema as the patient is being diuresed and his fluid balance is -2.6 L over the past 24 hours. The same time, the patient shows improvement in lower extremity edema and cellulitis. The patient is currently on IV cefazolin. Meanwhile, the patient is still receiving DuoNeb nebulized treatments [id number] and the patient is on IV Solu-Medrol 40 mg every 8 hours. No angina. No palpitations. No chest pain. Labs from today showing a serum bicarb of 46, chloride is 92, sodium is at 141 and a BUN of 27 with a creatinine of 0.8. The patient was taken off the IV Lasix and the patient was placed on 40 mg of Lasix on a daily basis. Doppler of the lower extremity was negative for DVTs. Echocardiogram was also done and the patient was found to have normal LV function, severe pulmonary hypertension with severe enlargement of the right ventricle with moderate reduction of the RV systolic function and moderate amount of tricuspid regurgitation. Objective - Vital Signs Vital signs: Vital Signs Temp 97.8 F 01/13/24 04:00 Pulse 88 01/13/24 09:23 Resp 18 01/13/24 04:00 BP 130/84 01/13/24 04:00 Pulse Ox 94 L 01/13/24 08:59 FiO2 35 01/13/24 00:22 Intake & Output 01/12/24 01/13/24 01/13/24 18:59 06:59 18:59 Intake Total 540 540 Output Total 2900 800 Balance -2360 -260 Weight 112.2 kg Intake: Oral 540 Other 540 Output: Urine 2900 800 Other: Voiding Method Urinal Urinal # Voids 1 - Exam GENERAL EXAM: Alert, pleasant 63-year-old male patient, awake and alert and currently off the BiPAP and the patient is currently on 4 L of oxygen by nasal cannula HEAD: Normocephalic. EYES: Normal reaction of pupils, equal size. NOSE: Clear with pink turbinates. THROAT: No erythema or exudates. NECK: No masses, no JVD. CHEST: No chest wall deformity. LUNGS: Equal air entry with bilateral end expiratory wheeze, crackles in the bases, diminished. Scattered expiratory wheezes throughout the lung hardin bilaterally CVS: S1 and S2 normal with no audible murmur, regular rhythm. ABDOMEN: No hepatosplenomegaly, normal bowel sounds, no guarding or rigidity. SPINE: No scoliosis or deformity SKIN: No rashes, cellulitis involving lower extremities bilaterally involving the shins and the patient has edema lower extremities bilaterally, improving and the swelling lower extremities bilaterally CENTRAL NERVOUS SYSTEM: No focal deficits, tone is normal in all 4 extremities. EXTREMITIES: There is no peripheral edema. No clubbing, no cyanosis. Per ipheral pulses are intact. - Labs CBC & Chem 7: 01/12/24 02:13 01/13/24 06:54 Labs: Abnormal Lab Results - Last 24 Hours (Table) 01/12/24 01/12/24 01/13/24 Range/Units 02:13 09: 06:54 ABG pH 7.33 L (7.35-7.45) ABG pCO2 80 H* (35-45) mmHg ABG pO2 56 L* (83-108) mmHg ABG HCO3 42 H* (21-25) mmol/L ABG Total CO2 44 H (19-24) mmol/L ABG O2 Saturation 87.6 L (94-97) % Chloride 92 L (98-107) mmol/L Carbon Dioxide 46 H* (22-30) mmol/L BUN 27 H (9-20) mg/dL Glucose 181 H (74-99) mg/dL HDL Cholesterol 31.00 L (40.00-60.00) mg/dL Assessment and Plan Plan: Acute COPD exacerbation with a component of hypoxic respiratory failure and an acute on top of chronic hypoxic hypercapnic respiratory failure. The patient is currently on a BiPAP. Reviewed the CTA of the chest and there is no evidence of any pulm embolism. No indication for pneumonia. However, there is chronic volume loss and pleural thickening around the right hemithorax along with old healed right-sided rib fractures and right hemidiaphragmatic elevation. The patient was taken off the BiPAP and the patient is currently on 4 L of oxygen by nasal cannula Previous traumatic right-sided rib fracture, healed along with pleural thick ening and scarring Right hemidiaphragmatic elevation, mild Acute/subacute CVA involving the right occipital and hippocampal area, with history of posterior circulation CVA Severe right-sided heart failure with pulmonary hypertension. Preserved LV function. Generalized weakness and dizziness, prior related to CVA Lower extremity cellulitis/edema, Doppler of the lower extremity has been negat kenan for DVT Previous history of Legionella pneumonia back in 2020 involving left lower lobe, recovered Nonspecific 5 mm left upper lobe pulmonary nodule Alcoholism Smoker Hypertension Plan Discontinue the BiPAP and keep the patient on 40 of oxygen by nasal cannula Continue bronchodilators with DuoNeb updrafts [id number] IV Solu-Medrol 40 mg every 8 hours Perforomist and Pulmicort nebulized treatments twice a day Lasix 40 m p.o. daily the patient was found to have some metabolic alkalosis and the patient will be given Diamox 5 mg every 12 hours x 2 doses Continue IV cefazolin regarding lower extremity cellulitis no signs of any delirium tremens Echocardiogram shows a preserved LV function with severe pulmonary hypertension and RV dilatation. Will continue to follow
--- NOTE | 2024-01-13 14:06 | P.PN ---
Subjective Progress Note Date: 01/13/24 Hospital course: Patient is a pleasant 63-year-old male with a past medical history of hypertension, daily alcohol abuse and nicotine dependence. He presented to the emergency department with a chief complaint of persistent dizziness and lower extremity edema. Patient reported the symptoms began a few weeks ago and have persistently worsened. Upon arrival to our facility, patient underwent evaluation in the emergency department. Vital signs upon arrival show blood pressure 135/95, heart rate 84, respiratory rate 18, temp 97.9 F and SpO2 of 84% on room air increasing to 93% on 4 L supplemental oxygen. EKG completed showing normal sinus rhythm at 82 bpm with T wave inversion in leads III, aVF, and V2 through V6. Chest x-ray completed showing healed trauma to right hemithorax with multiple healed right fractures and chronic blunting of the right costophrenic angle with possible small right pleural effusion. CT brain revealing acute to subacute infarct involving the right occipital lobe and hypothalamus in the distribution of the right posterior cerebral artery. Labs were completed and reviewed. CBC unremarkable. Coagulation profile showing elevated PT of 16.0, INR 1.6, and elevated D-dimer of 5.14. pH showing hype rcarbia with bicarb of 36 and mild prerenal azotemia with BUN of 23. Lactic acid was normal findings at 1.3. Blood glucose was 92. Magnesium 2.0. Liver profile showing hyperbilirubinemia with total bili of 1.8. Troponin was elevated at 0.511 with proBNP of 8560. Chest CTA was completed negative for pulmonary emboli showing a 5.5 mm left upper lobe nodule and mild ascites. Carotid Dopplers completed showing minimal carotid bifurcation plaque with no significant stenosis. Bilateral venous Dopplers then completed negative for DVT. Patient was admitted under services with consultation to cardiology and neurology. Overnight patient's respiratory status worsened and he was again found to be 85% on 4 L O2 and requiring placement on continuous BiPAP. ABG was obtained showing respiratory acidosis with pH 7.33, pCO2 of 80, PaO2 56%, bicarb 42, total CO2 of 44, and ABG O2 saturation of 87.6%. Consult was also placed to can dryer at this time. Physical exam: Patient seen and fully evaluated at bedside. Patient's condition improving, respiratory status improving patient weaned off of BiPAP and now on 4 L O2 via nasal cannula maintaining SpO2 of 90% on 4 L. He was visiting at bedside with multiple family members at time of assessment. Patient continues to report mild peripheral visual loss of left eye but states that is improving and reports dizziness/lightheadedness has resolved and denies any other complaints including numbness/tingling/weakness or difficulties with his speech. Vital signs reviewed and stable. General: Nontoxic, no distress and appears stated age. Derm: Skin warm and dry, normal coloration for ethnicity. Head: Atraumatic, normocephalic and symmetric. Eyes: EOM's intact, no lid lag, and anicteric sclera Mouth: no lip lesions, mucus membranes moist Cardiovascular: regular rate and rhythm with normal S1S2, no murmur, positive posterior tibial pulses bilaterally, and cap refill < 2 seconds. Lungs: Respirations even, regular, and unlabored on BiPAP.. Lungs diminished, no rhonchi, no rales, no wheezing. Abdominal: soft distended, nontender to palpation, no guarding, no appreciable organomegaly Ext: ROM intact. No gross muscle atrophy, bilateral lower extremity edema, no contractures Neuro: Speech clear, face symmetrical and CN II-XII grossly intact with no noted focal neuro deficits Psych: Alert and oriented to person, place, time, and situation. Appropriate and pleasant affect. Assessment and Plan of Care: Acute respiratory failure with hypoxia and hypercarbia NSTEMI Acute congestive heart failure, unknown type pending echocardiogram Acute/subacute ischemic stroke, right posterior cerebral artery Hypertension Nicotine dependence -Pulmonology following, reviewed documentation in chart -Cardiology following, reviewed documentation in chart -Neurology following, discussed case with Dr. Bowers -Patient to remain on continuous telemetry monitoring with close monitoring of vital signs and pulse oximetry. -Continue NIH scores every shift with neurochecks every 4 hours. -PT/OT and speech and language pathologist following. -TSH normal findings at 2.670, lipid profile unremarkable with exception of low HDL of 31.00. Hemoglobin A1c 6%. -Continue Plavix 75 mg daily, aspirin 81 mg daily and atorvastatin 80 mg ni ghtly. -IV diuretics discontinued and patient started on oral Lasix 40 mg daily. -Echocardiogram revealing preserved EF of 50 to 55% with severe right atrial dilation and severe right ventricular dilation with severe pulmonary hypertension and moderately reduced right ventricular global systolic function and moderate tricuspid regurgitation. -MRI brain pending -Recommend smoking cessation and order placed for nicotine patch 21 mg daily. Alcohol abuse -Order placed for monitoring of CIWA scores and patient to be medicated with Ativan 0.5 mg every 4 hours as needed for CIWA score of 4-5, Ativan 1 mg every 4 hours for CIWA score of 6-7, Ativan 2 mg every 3 hours CIWA score of 8-9, and Ativan 2 mg every 2 hours forr CIWA score of 10 or greater. -Continuous IV hydration. -Thiamine 100 mg daily, and Multivitamin daily, and Folate 1 mg daily -Continue seizure and fall precautions. -Continued close monitoring of electrolytes and replace as needed. -Telemetry monitoring. Data and imaging reviewed: -Echocardiogram revealing preserved EF of 50 to 55% with severe right atrial dilation and severe right ventricular dilation with severe pulmonary hypertension and moderately reduced right ventricular global systolic function and moderate tricuspid regurgitation. -Labs completed and reviewed. TSH normal findings at 2.670, lipid profile unremarkable with exception of low HDL of 31.00. Hemoglobin A1c 6%. BMP showing hypochloremia with chloride of 92, hypercarbia with bicarb 46, and anion gap of 7 with mild prerenal azotemia completed . Blood glucose 181. Repeat proBNP 6670 -Vital signs reviewed. Blood pressure 124/78, heart rate 83, respiratory rate 17, temp 98.0 F, and SpO2 of 90% on 4 L. CODE STATUS: Full code DVT prophylaxis: Heparin Anticipated discharge date: Pending clinical course Anticipated discharge place: Home Patient was seen independently by Nurse Pracitioner. This document was prepared using [employer] dictation software. Please allow for errors in senior reactor operator, while rare they do occur. .I reviewed the documentation as provided by the AMAN above, who is the original author of this note. I agree with the documented assessment and plan, with the following changes: none Objective - Vital Signs Vital signs: Vital Signs Temp 97.8 F 01/13/24 04:00 Pulse 84 01/13/24 04:00 Resp 18 01/13/24 04:00 BP 130/84 01/13/24 04:00 Pulse Ox 91 L 01/13/24 04:00 FiO2 35 01/13/24 00:22 Intake & Output 01/12/24 01/13/24 01/13/24 18:59 06:59 18:59 Intake Total 540 540 Output Total 2900 800 Balance -2360 -260 Weight 112.2 kg Intake: Oral 540 Other 540 Output: Urine 2900 800 Other: Voiding Method Urinal Urinal # Voids 1 - Labs CBC & Chem 7: 01/16/24 06:39 01/16/24 06:39 Labs: Abnormal Lab Results - Last 24 Hours (Table) 01/12/24 01/12/24 Range/Units 02:13 09:20 ABG pH 7.33 L (7.35-7.45) ABG pCO2 80 H* (35-45) mmHg ABG pO2 56 L* (83-108) mmHg ABG HCO3 42 H* (21-25) mmol/L ABG Total CO2 44 H (19-24) mmol/L ABG O2 Saturation 87.6 L (94-97) % HDL Cholesterol 31.00 L (40.00-60.00) mg/dL
--- NOTE | 2024-01-13 16:11 | MR ---
EXAMINATION TYPE: MR brain wo con DATE OF EXAM: 01/13/2024 4:02 PM CLINICAL INDICATION: Male, 63 years old with history of stroke; PHH, stroke COMPARISON: CT 01/11/2024. TECHNIQUE: Multi planar, multi sequence imaging was performed through the brain including: T1, T2, In version recovery, Diffusion weighted imaging, and gradient echo imaging. No gadolinium was given. FINDINGS: Confirmation of CT findings are acute/subacute CVA involving the right temporal, right occi pital lobe with bilateral punctate foci of infarct involving the bilateral parietal regions. Suscepti bility artifact is gyriform along the cortex favoring pseudolaminar necrosis. No additional area of o f restricted diffusion within the right cerebellar hemisphere. The renner-white junctions, ventricular system, basal cisterns appear unremarkable. Scattered foci of high T2 signal intensity are seen within the periventricular white matter. Midline structures show n o abnormality. The bone marrow signal is within normal limits. Paranasal sinuses and mastoid air cells: No significant paranasal sinus disease. Visualized orbits: Orbital contents are intact. IMPRESSION: 1. Acute to subacute CVA involving predominantly the right temporal lobe right occipital lobe with 2 foci of infarct involving the bilateral parietal regions and in the the right cerebellum. Correlate f or embolic phenomenon. 2. Nonspecific white matter changes, likely secondary to small vessel ischemic disease. [facility], , 01/13/2024 4:09 PM
--- NOTE | 2024-01-13 17:04 | P.PN ---
Subjective Progress Note Date: 01/13/24 I Went to patient room to follow-up but he was not in his room and was taken down for testing. Objective - Vital Signs Vital signs: Vital Signs Temp 97.9 F 01/13/24 11:34 Pulse 88 01/13/24 16:50 Resp 18 01/13/24 11:34 BP 108/64 01/13/24 11:34 Pulse Ox 95 01/13/24 11:34 FiO2 35 01/13/24 00:22 Intake & Output 01/12/24 01/13/24 01/13/24 18:59 06:59 18:59 Intake Total 540 540 360 Output Total 2900 800 600 Balance -2360 -260 -240 Weight 112.2 kg Intake: Oral 540 360 Other 540 Output: Urine 2900 800 600 Other: Voiding Method Urinal Urinal Urinal # Voids 1 - Labs CBC & Chem 7: 01/12/24 02:13 01/13/24 06:54 Labs: Abnormal Lab Results - Last 24 Hours (Table) 01/13/24 Range/Units 06:54 Chloride 92 L (98-107) mmol/L Carbon Dioxide 46 H* (22-30) mmol/L BUN 27 H (9-20) mg/dL Glucose 181 H (74-99) mg/dL
[2024-01-14 06:45] LABS: Glucose,Whole Blood 122 mg/dL (70-110)
[2024-01-14 07:31] LABS: HCT 54.9 % (39.0-53.0); Hypochromasia Marked; MCH 30.1 pg (25.0-35.0); MCHC 29.1 g/dL (31.0-37.0); MCV 103.4 fL (80.0-100.0); Macrocytosis Slight; Mean Platelet Volume 8.1; Platelet Count 218 k/uL (150-450); RBC 5.31 m/uL (4.30-5.90); RDW 13.8 % (11.5-15.5); WBC 10.1 k/uL (3.8-10.6)
[2024-01-14] MEDS: IV FLUID CONTINUATION 1,000 ML IV ONE (07:43)
[2024-01-14 07:58] LABS: African American GFR (CKD) >90 (>60 ml/min/1.73 sqM); Anion Gap 2 mmol/L; Blood Urea Nitrogen 21 mg/dL (9-20); Calcium 8.8 mg/dL (8.4-10.2); Carbon Dioxide 39 mmol/L (22-30); Chloride 98 mmol/L (98-107); Glucose 126 mg/dL (74-99); Magnesium 2.2 mg/dL (1.6-2.3); Non-African American GFR(CKD) >90 (>60 ml/min/1.73 sqM); Potassium 3.9 mmol/L (3.5-5.1); Sodium 139 mmol/L (137-145)
[2024-01-14] MEDS: FUROSEMIDE 40 MG TAB PO SCH (09:53)
--- NOTE | 2024-01-14 11:43 | P.PN ---
Subjective Progress Note Date: 01/14/24 History of present illness: This is a 63-year-old male with past medical history of hypertension, COPD, alcohol abuse, tobacco use and dependence. We have been asked to evaluate the patient for NSTEMI. Patient is currently on BiPAP somewhat somnolent but answers a few questions. He states that he came into the hospital because he was confused and he also had shortness of breath. He states that been going on for couple of days with generalized weakness. He denies having any chest pain. He is a smoker currently of 1/3 pack/day. No cough no wheezing. He does have lower extremity edema. No nausea or vomiting. No bleeding. No history of stroke or seizure. He does drink caffeine daily and he does drink alcohol regularly but not every day. [facility]. He states he feels a little bit better from yesterday. Blood pressure 125/84, heart rate 93, pulse ox 88% on BiPAP. EKG: Sinus rhythm with anterior T wave abnormalities Chest x-ray: Laboratory studies: WBC 6.5, hemoglobin 16.2. D-dimer 5.14. Home cardiac medications: Amlodipine 2.5 mg daily, chlorthalidone 25 mg daily, lisinopril 40 mg daily Echocardiogram performed in 2020 revealed normal EF 01/12 Patient is seen today in follow-up. He is sitting up in bed awake and alert, multiple family members are at the bedside. Patient states that he is feeling much better today. He denies having any chest pain, no shortness of breath. Lower extremity edema is improved. He is on IV Lasix 40 mg twice daily. Heart rate is in the 90s, pulse ox 94% on 4 L nasal cannula, blood pressure 130/84. Repeat blood work reveals sodium 141, potassium 3.5, CO2 46, BUN 27 creatinine 0.83. proBNP 6670. Patient has a negative fluid balance and documented weight loss. Echocardiogram reveals EF of 50 to 55%, severe pulmonary hypertension, severely enlarged right ventricle with moderately reduced RV systolic function, moderate tricuspid regurgitation. Results of echocardiogram reviewed with the patient. 01/13 Patient underwent MRI of the brain which revealed acute to subacute CVA right temporal lobe right occipital lobe with 2 foci of infarct involving the bilateral parietal regions in the right cerebellum. Correlate for embolic phenomenon. Nonspecific white matter changes. Neurology has requested a COCO which at this time does not seem to be appropriate due to patient's hypercapnic and risk for excessive sedation. We will repeat a transthoracic echocardiogram with contrast. Patient states that he is feeling well. His breathing is much better. Telemetry is a sinus rhythm. Physical examination: Gen: This is a 63-year-old male appears to be in no acute distress VS: reviewed HEENT: Head is atraumatic, normocephalic. Pupils equal, round. Sclerae is anicteric. NECK: Supple. No JVD. LUNGS: Decreased air exchange. No intercostal retractions. HEART: Regular rate and rhythm. Systolic murmur. ABDOMEN: Soft No tenderness. EXTREMITIES: Bilateral lower extremity edema is improved. No calf tenderness. NEUROLOGICAL: Patient is awake, alert and oriented x 3. Assessment: Acute hypoxic and hypercapnic respiratory failure requiring BiPAP initially Acute diastolic heart failure Elevated troponin, type II MA secondary to hypoxia Acute to subacute right posterior cerebral artery ischemic stroke, possible embolic Metabolic encephalopathy Hypertension COPD Tobacco use and dependence Alcohol abuse Plan: Continue the following cardiac medications: Aspirin 81 mg daily, atorvastatin 80 mg daily, Plavix started by neurology, lisinopril 20 mg daily, Lasix oral 40 mg daily Monitor ROSLYN, daily weights, electrolytes and renal function Smoking cessation, patient will be provided the [employer] quit line information at discharge Transthoracic echocardiogram with contrast Further recommendations to follow based upon clinical course Nurse practitioner note has been reviewed, I agree with documented findings and plan of care. Patient was seen and examined. Objective - Vital Signs Vital signs: Vital Signs Temp 98.0 F 01/14/24 04:00 Pulse 78 01/14/24 09:26 Resp 18 01/14/24 04:00 BP 109/64 01/14/24 04:00 Pulse Ox 95 01/14/24 04:00 FiO2 35 01/13/24 00:22 Intake & Output 01/13/24 01/14/24 01/14/24 18:59 06:59 18:59 Intake Total 480 540 50 Output Total 600 1050 500 Balance -120 -510 -450 Weight 108.5 kg Intake: IV 50 Oral 480 540 Output: Urine 600 1050 500 Other: Voiding Method Urinal Urinal - Labs CBC & Chem 7: 01/14/24 06:45 01/14/24 06:45 Labs: Abnormal Lab Results - Last 24 Hours (Table) 0901/14/24 01/14/24 Range/Units 06:44 06:45 06:45 Hct 54.9 H (39.0-53.0) % MCV 103.4 H (80.0-100.0) fL MCHC 29.1 L (31.0-37.0) g/dL Carbon Dioxide 39 H (22-30) mmol/L BUN 21 H (9-20) mg/dL Glucose 126 H (74-99) mg/dL POC Glucose (mg/dL) 122 H (70-110) mg/dL
--- NOTE | 2024-01-14 13:42 | P.PN ---
Subjective Progress Note Date: 01/14/24 I am following-up with patient and is accompanied with his sister who is at bedside who feels he is doing better. Patient agrees that he is doing better. He had MRI which showed bilateral hemispheric stroke concerning for embolic so I recommended COCO today. Objective - Vital Signs Vital signs: Vital Signs Temp 97.8 F 01/14/24 08:30 Pulse 84 01/14/24 12:10 Resp 18 01/14/24 08:30 BP 133/83 01/14/24 08:30 Pulse Ox 95 01/14/24 08:30 FiO2 35 01/13/24 00:22 Intake & Output 01/13/24 01/14/24 01/14/24 18:59 06:59 18:59 Intake Total 480 540 50 Output Total 600 1050 500 Balance -120 -510 -450 Weight 108.5 kg Intake: IV 50 Oral 480 540 Output: Urine 600 1050 500 Other: Voiding Method Urinal Urinal Urinal - Exam GENERAL: The patient is lying in bed and is not in acute distress. NEUROLOGICAL: Higher mental function: The patient is awake, alert, oriented to self, place and time. Patient is following commands. No aphasia and no neglect. Cranial nerves: The pupils are round, equal and reactive to light and accommodation. Visual hardin are left homonymous hemianopsia to confrontation. Extraocular movement is intact no nystagmus is noted. Facial sensation is normal to touch throughout. The facial strength is normal throughout. Hearing is normal bilaterally to hand rub. Tongue is midline and moved [id number] w ithout any difficulty. No dysarthria is noted. Shoulder shrug is normal bilaterally. Motor: The strength is 5 over 5 throughout. Normal tone and bulk. Sensation: Sensation is normal to touch throughout. 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 There is no acute intra or extra axial hemorrhage. There is no mass effect or shift of the midline structures. I personally reviewed the CT and I feel it is more subacute infarct. Carotid duplex is reported as minimal carotid bifurcation plaque. No significant stenosis based on peak systolic velocity and ratio. CT angiography of the chest is reported as no evidence of pulmonary embolism. 5.5 left upper lobe nodule. MRI Brain: Acute to subacute CVA involving predominantly the right temporal lobe right occipital lobe with 2 foci of infarct involving bilateral parietal region and in the right cerebellum. Correlate for embolic phenomenon. Venous duplex of the lower extremity is negative for any DVTs. 2D echo was reported as normal left ventricular systolic function. Severe pulmonary hypertension. Severely enlarged right ventricle with moderate reduced right ventricular systolic function. Moderate tricuspid regurgitation. - Labs CBC & Chem 7: 01/14/24 06:45 01/14/24 06:45 Labs: Abnormal Lab Results - Last 24 Hours (Table) 01/14/24 01/14/24 01/14/24 Range/Units 06:44 06:45 06:45 Hct 54.9 H (39.0-53.0) % MCV 103.4 H (80.0-100.0) fL MCHC 29.1 L (31.0-37.0) g/dL Carbon Dioxide 39 H (22-30) mmol/L BUN 21 H (9-20) mg/dL Glucose 126 H (74-99) mg/dL POC Glucose (mg/dL) 122 H (70-110) mg/dL Assessment and Plan Assessment: This is a 63-year-old gentleman who presented emergency department because of several days of confusion, dizziness, fall, lower extremity weakness with exertional dyspnea and some chest pain. CT of the head shows acute to subacute right posterior cerebral artery stroke. Acute to subacute stroke over bilateral hemisphere concerning for embolic stroke. Rule out cardioembolic stroke. No IV thrombolytic since unknown last normal but it appears he is outside the window and the risk outweigh the benefit. Carotid duplex is no significant stenosis Elevated troponin Fluid overload with suspicion of acute newly diagnosed congestive heart failure exacerbation Acute hypoxia and hypercapnia respiratory failure Underlying hypertension Tobacco use Alcohol use Obesity Plan: COCO is ordered and I spoke with Cardiology N.P. and she stated it was cancelled today since patient is a high risk. Instead they will pursue with 2D echo with contrast. Patient was started on aspirin 81 mg by cardiology team in addition I started the patient on Plavix 75 mg daily. Patient was not on any antiplatelet prior to this. Continue Lipitor 80 mg nightly by primary team and that sufficient for secondary stroke prophylaxis Continue neurochecks Cardiac monitoring PT OT and COFFEE ROASTER are consulted Patient was counseled on tobacco and alcohol cessation Continue thiamine 100 mg daily. Cardiology team and pulmonary team is consulted Will defer the rest of the medical management to primary and other specialist DVT prophylaxis on subcu heparin 5000 units every 12 hours Discussed with the patient and his sister who is at bedside. Also discussed with his nurse. Time with Patient: Less than 30
--- NOTE | 2024-01-14 15:04 | P.PN ---
Subjective Progress Note Date: 01/14/24 Hospital Course: Patient is a pleasant 63-year-old male with a past medical history of hyperten konrad, daily alcohol abuse and nicotine dependence. He presented to the emergency department with a chief complaint of persistent dizziness and lower extremity edema. Patient reported the symptoms began a few weeks ago and have persistently worsened. Upon arrival to our facility, patient underwent evaluation in the emergency department. Vital signs upon arrival show blood pressure 135/95, heart rate 84, respiratory rate 18, temp 97.9 F and SpO2 of 84% on room air increasing to 93% on 4 L supplemental oxygen. EKG completed showing normal sinus rhythm at 82 bpm with T wave inversion in leads III, aVF, and V2 through V6. Chest x-ray completed showing healed trauma to right hemithorax with multiple healed right fractures and chronic blunting of the right costophrenic angle with possible small right pleural effusion. CT brain revealing acute to subacute infarct involving the right occipital lobe and hypothalamus in the distribution of the right posterior cerebral artery. Labs were completed and reviewed. CBC unremarkable. Coagulation profile showing elevated PT of 16.0, INR 1.6, and elevated D-dimer of 5.14. pH showing hypercarbia with bicarb of 36 and mild prerenal azotemia with BUN of 23. Lactic acid was normal findings at 1.3. Blood glucose was 92. Magnesium 2.0. Liver profile showing hyperbilirubinemia with total bili of 1.8. Troponin was elevated at 0.511 with proBNP of 8560. Chest CTA was completed negative for pulmonary emboli showing a 5.5 mm left upper lobe nodule and mild ascites. Carotid Dopplers completed showing minimal carotid bifurcation plaque with no significant stenosis. Bilateral venous Dopplers then completed negative for DVT. Patient was admitted under services with consultation to cardiology and neurology. Overnight patient's respiratory status worsened and he was again found to be 85% on 4 L O2 and requiring placement on continuous BiPAP. ABG was obtained showing respiratory acidosis with pH 7.33, pCO2 of 80, PaO2 56%, bicarb 42, total CO2 of 44, and ABG O2 saturation of 87.6%. Consult was also placed to rigging engineer at this time. Brain MRI showed acute to subacute CVA predominantly involving the right temporal lobe, right occipital lobe with 2 foci of infarct involving the bilateral parietal regions in the right cereb ellum, likely embolic. Unable to tolerate COCO. TTE with contrast pending. Subjective: Patient seen and examined at bedside. No acute events overnight. Still requiring supplemental oxygen Pertinent positives and negatives as discussed above, a complete review of systems was performed and all other systems are negative. Vitals Signs Reviewed. General: Nontoxic, no distress, appears at stated age Derm: Warm, dry Head: Atraumatic, normocephalic, symmetric Eyes: EOMI, no lid lag, anicteric sclera Mouth: No lip lesion, mucus membranes moist Cardiovascular: S1S2 reg, no murmur Lungs: CTA bilateral, no rhonchi, no rales, no accessory muscle use, supplemental oxygen Abdominal: Soft, nontender to palpation, no guarding, no appreciable organomegaly Ext: No gross muscle atrophy, no edema, no contractures Neuro: CN II-XI grossly intact, no focal neuro deficits Psych: Alert, oriented, appropriate affect Data Reviewed Today: Pertinent Labs: WBC 10.1, hemoglobin 16, platelet 218, potassium 3.9, bicarb 39, creatinine 0.86, magnesium 2.2 Imaging: Brain MRI showed acute to subacute CVA predominantly involving the right temporal lobe, right occipital lobe with 2 foci of infarct involving the bilateral parietal regions in the right cerebellum, likely embolic. Assessment and Plan: Active: Acute/subacute ischemic strokes, embolic -Discussed management with neurology, ideally patient should get COCO -On aspirin 81 mg, atorvastatin 80 mg, Plavix 75 mg daily -Patient unable to tolerate COCO, will be getting TTE with contrast per cardiology -Continue telemetry monitoring Acute hypoxic and hypercapnic respiratory failure Acute CHF exacerbation, diastolic NSTEMI, likely type II Hypertension Acute COPD exacerbation Contraction alkalosis -Pulmonology following, patient on DuoNebs 4 times daily, every 2 hours as needed, Pulmicort twice daily, Perforomist twice daily, Solu-Medrol 40 IV every 8 hours -On oral Lasix 40 daily -Pulmonology also has patient acetazolamide 500 IV every 12 hours, and cefazolin 1000 mg IV every 8 hours -Lisinopril 20 mg daily Alcohol dependence -Continue to monitor on CIWA protocol, IV and oral Ativan as needed, monitor for sedation -Thiamine 100 mg daily, folic acid 1 mg daily Nicotine dependence -Nicotine patch 21 mg daily -Was counseled during this admission about smoking cessation DVT ppx: Subcu heparin Code status: Full code Anticipated discharge place: Pending clinical course Anticipated discharge time: Pending clinical course Objective - Vital Signs Vital signs: Vital Signs Temp 97.8 F 01/14/24 08:30 Pulse 84 01/14/24 12:10 Resp 18 01/14/24 08:30 BP 133/83 01/14/24 08:30 Pulse Ox 95 01/14/24 08:30 FiO2 35 01/13/24 00:22 Intake & Output 01/13/24 01/14/24 01/14/24 18:59 06:59 18:59 Intake Total 480 540 50 Output Total 600 1050 500 Balance -120 -510 -450 Weight 108.5 kg Intake: IV 50 Oral 480 540 Output: Urine 600 1050 500 Other: Voiding Method Urinal Urinal Urinal - Labs CBC & Chem 7: 01/14/24 06:45 01/14/24 06:45 Labs: Abnormal Lab Results - Last 24 Hours (Table) 01/14/24 01/14/24 01/14/24 Range/Units 06:44 06:45 06:45 Hct 54.9 H (39.0-53.0) % MCV 103.4 H (80.0-100.0) fL MCHC 29.1 L (31.0-37.0) g/dL Carbon Dioxide 39 H (22-30) mmol/L BUN 21 H (9-20) mg/dL Glucose 126 H (74-99) mg/dL POC Glucose (mg/dL) 122 H (70-110) mg/dL
[2024-01-14 16:58] LABS: Glucose,Whole Blood 132 mg/dL (70-110)
--- NOTE | 2024-01-14 18:53 | P.PN ---
Subjective Progress Note Date: 01/14/24 This is a 63-year-old male patient who came into the emergency department because of worsening shortness of breath. The patient did complain of some increased shortness of breath. However, he had other complaints including feeling weak and dizzy and over the past few days, he has been having falls. Th e patient did not lose any consciousness. Denies having any focal neurological deficit. He did note also some increased lower extremity edema. He came into the emergency room for further evaluation. Denied having any chest pain. No fever or chills. In the emergency, he underwent a CAT scan of the brain that showed a subacute right occipital infarct and hippocampal infarct and this is attributed to right posterior cerebral artery involvement. He underwent also a chest x-ray that showed healed right sided rib fractures along with some chronic scarring and thickening of the right pleura and volume loss in the right lung base. Based on that, the patient was given a CT angiogram of the chest that showed no evidence of any pulmonary embolism. Similar volume loss was seen in the right lung base and a 5 mm nodule in the left upper lobe and some chronic scarring along the right hemithorax/pleura with elevation of the right hemidiaphragm. Noted the patient had a previous history of an extensive left lower lobe pneumonia back in 2020 and this was attributed to Legionella from which she recovered. I also noted some increased lower extremity edema. There is also some limited cellulitis in the lower extremities involving the anterior shins bilaterally. No previous history of DVT or pulmonary embolism. Carotid Dopplers were also done and it showed no hemodynamically significant stenosis. Earlier this morning, the patient becomes more short of breath. Blood gas was done and showed a pH of 7.33 with a pCO2 of 80 and pO2 of 56. Based on that, the patient was placed on a BiPAP at a pressure of 12/6 with an FiO2 of 35%. Currently, he is on bronchodilators. He is also on IV Solu-Medrol 40 mg every 8 hours. He is less bronchospastic and wheezy. He admits to drinking appr oximately 20-24 bottles of beer on a weekly basis. He smokes around 1 pack of cigarettes a day every 2 to 3 days. 01/13/2024, the patient is feeling much better. The patient is currently off the BiPAP. The patient is currently on oxygen at 4 L/min nasal cannula with a pulse ox of 95%. No significant chest pain. There is improvement in lower extremity edema as the patient is being diuresed and his fluid balance is -2.6 L over the past 24 hours. The same time, the patient shows improvement in lower extremity edema and cellulitis. The patient is currently on IV cefazolin. Meanwhile, the patient is still receiving DuoNeb nebulized treatments [id number] and the patient is on IV Solu-Medrol 40 mg every 8 hours. No angina. No palpitations. No chest pain. Labs from today showing a serum bicarb of 46, chloride is 92, sodium is at 141 and a BUN of 27 with a creatinine of 0.8. The patient was taken off the IV Lasix and the patient was placed on 40 mg of Lasix on a daily basis. Doppler of the lower extremity was negative for DVTs. Echocardiogram was also done and the patient was found to have normal LV function, severe pulmonary hypertension with severe enlargement of the right ventricle with moderate reduction of the RV systolic function and moderate amount of tricuspid regurgitation. 01/14/2024, the patient is resting comfortably in bed and has no specific complaints. Improvement in lower extremity edema and the patient was taken off the IV Lasix and the patient is currently on oral Lasix 40 mg p.o. daily. The patient remains also on IV cefazolin. Still having some difficulty breathing and the patient is on DuoNeb treatments [id number]. Experiencing some cough and congestion and wheezing the patient was started also on IV Solu-Medrol 40 mg every 8 hours which is the current dose. Remains on aspirin and Plavix. A COCO was recommended by cardiology and this may be done at later stage once more stable. The patient is currently off the BiPAP. Breathing is comfortable. Possibility of an embolic phenomena especially with his recent subacute infarct involving the posterior circulation. WBC count is at 9.1, hemoglobin 16 and platelets 218 and the patient has a sodium level of 139, BUN 21 with a creatinine of 0.8 and a serum bicarbonate of 39. Given 2 dose of Diamox yesterday with improvement in the acid-base status. Currently on Lasix 40 mg p.o. daily. Objective - Vital Signs Vital signs: Vital Signs Temp 98.0 F 01/14/24 04:00 Pulse 78 01/14/24 09:26 Resp 18 01/14/24 04:00 BP 109/64 01/14/24 04:00 Pulse Ox 95 01/14/24 04:00 FiO2 35 01/13/24 00:22 Intake & Output 01/13/24 01/14/24 01/14/24 18:59 06:59 18:59 Intake Total 480 540 50 Output Total 600 1050 Balance -120 -510 50 Weight 108.5 kg Intake: IV 50 Oral 480 540 Output: Urine 600 1050 Other: Voiding Method Urinal Urinal - Exam GENERAL EXAM: Alert, pleasant 63-year-old male patient, awake and alert and currently off the BiPAP and the patient is currently on 4 L of oxygen by nasal cannula HEAD: Normocephalic. EYES: Normal reaction of pupils, equal size. NOSE: Clear with pink turbinates. THROAT: No erythema or exudates. NECK: No masses, no JVD. CHEST: No chest wall deformity. LUNGS: Equal air entry with bilateral end expiratory wheeze, crackles in the bases, diminished. Scattered expiratory wheezes throughout the lung hardin bilaterally CVS: S1 and S2 normal with no audible murmur, regular rhythm. ABDOMEN: No hepatosplenomegaly, normal bowel sounds, no guarding or rigidity. SPINE: No scoliosis or deformity SKIN: No rashes, cellulitis involving lower extremities bilaterally involving the shins and the patient has edema lower extremities bilaterally, improving and the swelling lower extremities bilaterally CENTRAL NERVOUS SYSTEM: No focal deficits, tone is normal in all 4 extremities. EXTREMITIES: There is no peripheral edema. No clubbing, no cyanosis. Peripheral pulses are intact. - Labs CBC & Chem 7: 01/14/24 06:45 01/14/24 06:45 Labs: Abnormal Lab Results - Last 24 Hours (Table) 01/14/24 01/14/24 01/14/24 Range/Units 06:44 06:45 06:45 Hct 54.9 H (39.0-53.0) % MCV 103.4 H (80.0-100.0) fL MCHC 29.1 L (31.0-37.0) g/dL Carbon Dioxide 39 H (22-30) mmol/L BUN 21 H (9-20) mg/dL Glucose 126 H (74-99) mg/dL POC Glucose (mg/dL) 122 H (70-110) mg/dL Assessment and Plan Plan: Acute COPD exacerbation with a component of hypoxic respiratory failure and an acute on top of chronic hypoxic hypercapnic respiratory failure. The patient is currently on a BiPAP. Reviewed the CTA of the chest and there is no evidence of any pulm embolism. No indication for pneumonia. However, there is chronic volu me loss and pleural thickening around the right hemithorax along with old healed right-sided rib fractures and right hemidiaphragmatic elevation. The patient was taken off the BiPAP and the patient is currently on 4 L of oxygen by nasal cannula. 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 Preserved LV function. Generalized weakness and dizziness, prior related to CVA Lower extremity cellulitis/edema, Doppler of the lower extremity has been negative for DVT, edema is improving Previous history of Legionella pneumonia back in 2020 involving left lower lobe, recovered Nonspecific 5 mm left upper lobe pulmonary nodule Alcoholism Smoker Hypertension Metabolic alkalosis secondary to diuresis, improved with use of Diamox Plan currently on 4 L of oxygen by nasal cannula Overall respiratory status is stable Continue bronchodilators with DuoNeb updrafts [id number] IV Solu-Medrol 40 mg every 8 hours Perforomist and Pulmicort nebulized treatments twice a day Lasix 40 m p.o. daily the patient was found to have some metabolic alkalosis and the patient will be given Diamox 500 mg every 12 hours x 2 additional doses doses, the metabolic alkalosis essentially improving Continue IV cefazolin regarding lower extremity cellulitis no signs of any delirium tremens Echocardiogram shows a preserved LV function with severe pulmonary hypertension and RV dilatation. COCO once the patient is more stable Continue aspirin and Plavix Neurology and cardiology follow-up Will continue to follow
--- NOTE | 2024-01-14 19:57 | CA ---
Transthoracic Echo Report Name: Law Azul Age: 63 Gender: M : 1960 Exam Date: 01/14/2024 15:24 Exam Location: [facility] Ht (in): 72 Wt (lb): 239 Ordering Physician: Stella Dupree Attending/Referring Phys: [id number], Leia Supervisor Anodizing Soni Perkins RDCS Procedure CPT: Indications: CVA possibe embolic, Please use contrast. Cardiac Hx: Limited echocardiogram for assessment of a bubble study. Full echocardiogram performed 01/11/24 Technical Quality: Fair Contrast 1: Total Dose (mL): Contrast 2: Total Dose (mL): MEASUREMENTS (Male / Female) Normal Values FINDINGS Left Ventricle Right Ventricle Right Atrium Positive agitated saline bubble study indicates intracardiac shunt. Left Atrium Mitral Valve Aortic Valve Tricuspid Valve Pulmonic Valve Pericardium Aorta CONCLUSIONS Diagnosis CVA Limited study for saline contrast Positive bubble study Previewed by: Dr. Braeden Frye MD (Electronically Signed) Final Date: 14 January 2024 19:55
[2024-01-14 20:18] LABS: Glucose,Whole Blood 157 mg/dL (70-110)
[2024-01-15 06:24] LABS: Glucose,Whole Blood 159 mg/dL (70-110)
[2024-01-15 09:28] LABS: Basophils % (A) 0 %; Eosinophils % (A) 0 %; Hypochromasia Marked; Lymphocytes # (A) 0.6 k/uL (1.0-4.8); Lymphocytes % (A) 7 %; MCH 30.5 pg (25.0-35.0); MCHC 29.5 g/dL (31.0-37.0); MCV 103.7 fL (80.0-100.0); Macrocytosis Slight; Monocytes # (A) 0.4 k/uL (0-1.0); Monocytes % (A) 4 %; Neutrophils # (A) 8.2 k/uL (1.3-7.7); Neutrophils % (A) 88 %; Platelet Count 189 k/uL (150-450); RBC 5.57 m/uL (4.30-5.90); RDW 13.7 % (11.5-15.5); WBC 9.3 k/uL (3.8-10.6)
[2024-01-15 09:52] LABS: HCT 57.8 % (39.0-53.0)
[2024-01-15 10:18] LABS: African American GFR (CKD) >90 (>60 ml/min/1.73 sqM); Anion Gap 3 mmol/L; Blood Urea Nitrogen 28 mg/dL (9-20); Calcium 9.3 mg/dL (8.4-10.2); Carbon Dioxide 37 mmol/L (22-30); Chloride 99 mmol/L (98-107); Glucose 118 mg/dL (74-99); Magnesium 2.2 mg/dL (1.6-2.3); Non-African American GFR(CKD) 84 (>60 ml/min/1.73 sqM); Sodium 139 mmol/L (137-145)
[2024-01-15 11:52] LABS: Glucose,Whole Blood 171 mg/dL (70-110)
--- NOTE | 2024-01-15 12:56 | P.PN ---
Subjective Progress Note Date: 01/15/24 Hospital Course: Patient is a pleasant 63-year-old male with a past medical history of hyperten konrad, daily alcohol abuse and nicotine dependence. He presented to the emergency department with a chief complaint of persistent dizziness and lower extremity edema. Patient reported the symptoms began a few weeks ago and have persistently worsened. Upon arrival to our facility, patient underwent evaluation in the emergency department. Vital signs upon arrival show blood pressure 135/95, heart rate 84, respiratory rate 18, temp 97.9 F and SpO2 of 84% on room air increasing to 93% on 4 L supplemental oxygen. EKG completed showing normal sinus rhythm at 82 bpm with T wave inversion in leads III, aVF, and V2 through V6. Chest x-ray completed showing healed trauma to right hemithorax with multiple healed right fractures and chronic blunting of the right costophrenic angle with possible small right pleural effusion. CT brain revealing acute to subacute infarct involving the right occipital lobe and hypothalamus in the distribution of the right posterior cerebral artery. Labs were completed and reviewed. CBC unremarkable. Coagulation profile showing elevated PT of 16.0, INR 1.6, and elevated D-dimer of 5.14. pH showing hypercarbia with bicarb of 36 and mild prerenal azotemia with BUN of 23. Lactic acid was normal findings at 1.3. Blood glucose was 92. Magnesium 2.0. Liver profile showing hyperbilirubinemia with total bili of 1.8. Troponin was elevated at 0.511 with proBNP of 8560. Chest CTA was completed negative for pulmonary emboli showing a 5.5 mm left upper lobe nodule and mild ascites. Carotid Dopplers completed showing minimal carotid bifurcation plaque with no significant stenosis. Bilateral venous Dopplers then completed negative for DVT. Patient was admitted under services with consultation to cardiology and neurology. Overnight patient's respiratory status worsened and he was again found to be 85% on 4 L O2 and requiring placement on continuous BiPAP. ABG was obtained showing respiratory acidosis with pH 7.33, pCO2 of 80, PaO2 56%, bicarb 42, total CO2 of 44, and ABG O2 saturation of 87.6%. Consult was also placed to compliance professional at this time. Brain MRI showed acute to subacute CVA predominantly involving the right temporal lobe, right occipital lobe with 2 foci of infarct involving the bilateral parietal regions in the right cereb ellum, likely embolic. Unable to tolerate COCO. TTE with contrast was positive for bubble study. Subjective: Patient seen and examined at bedside. No acute events overnight. Still requiring supplemental oxygen Pertinent positives and negatives as discussed above, a complete review of systems was performed and all other systems are negative. Vitals Signs Reviewed. General: Nontoxic, no distress, appears at stated age Derm: Warm, dry Head: Atraumatic, normocephalic, symmetric Eyes: EOMI, no lid lag, anicteric sclera Mouth: No lip lesion, mucus membranes moist Cardiovascular: S1S2 reg, no murmur Lungs: CTA bilateral, no rhonchi, no rales, no accessory muscle use, supplemental oxygen Abdominal: Soft, nontender to palpation, no guarding, no appreciable organomegaly Ext: No gross muscle atrophy, no edema, no contractures Neuro: CN II-XI grossly intact, no focal neuro deficits Psych: Alert, oriented, appropriate affect Data Reviewed Today: Pertinent Labs: WBC 9.3, hemoglobin 17, platelet 189, creatinine 0.98, blood sugars range between 1 18-1 71, magnesium 2.2 Imaging: Echocardiogram positive for bubble study Assessment and Plan: Prognosis guarded. Patient is severely ill. Active: Acute/subacute ischemic strokes, embolic -Discussed management with neurology, patient probably has a PFO, unable to do COCO due to respiratory issues, may be able to consider COCO later during the hospitalization -May need cardiac monitoring outpatient -On aspirin 81 mg, atorvastatin 80 mg, Plavix 75 mg daily -Continue telemetry monitoring Acute hypoxic and hypercapnic respiratory failure Acute CHF exacerbation, diastolic NSTEMI, likely type II Hypertension Acute COPD exacerbation Contraction alkalosis -Pulmonology following, patient on DuoNebs 4 times daily, every 2 hours as needed, Pulmicort twice daily, Perforomist twice daily, Solu-Medrol 40 IV every 8 hours -On oral Lasix 40 daily -Pulmonology also has patient acetazolamide 500 IV every 12 hours, and cefazolin 1000 mg IV every 8 hours -Lisinopril 20 mg daily Alcohol dependence -Continue to monitor on CIWA protocol, IV and oral Ativan as needed, monitor for sedation -Thiamine 100 mg daily, folic acid 1 mg daily Nicotine dependence -Nicotine patch 21 mg daily -Was counseled during this admission about smoking cessation DVT ppx: Subcu heparin Code status: Full code Anticipated discharge place: Pending clinical course Anticipated discharge time: Pending clinical course Objective - Vital Signs Vital signs: Vital Signs Temp 98.2 F 01/15/24 11:32 Pulse 84 01/15/24 11:59 Resp 18 01/15/24 11:48 BP 128/80 01/15/24 11:32 Pulse Ox 92 L 01/15/24 11:48 FiO2 35 01/13/24 00:22 Intake & Output 01/14/24 01/15/24 01/15/24 18:59 06:59 18:59 Intake Total 50 240 Output Total 500 1700 1000 Balance -450 -1700 -760 Weight 109.5 kg Intake: IV 50 Oral 240 Output: Urine 500 1700 1000 Other: Voiding Method Urinal Urinal Urinal # Voids 3 - Labs CBC & Chem 7: 01/15/24 08:20 01/15/24 08:20 Labs: Abnormal Lab Results - Last 24 Hours (Table) 01/14/24 01/14/24 01/15/24 Range/Units 16:57 20:17 06:23 Hct (39.0-53.0) % MCV (80.0-100.0) fL MCHC (31.0-37.0) g/dL Neutrophils # (1.3-7.7) k/uL Lymphocytes # (1.0-4.8) k/uL Carbon Dioxide (22-30) mmol/L BUN (9-20) mg/dL Glucose (74-99) mg/dL POC Glucose (mg/dL) 132 H 157 H 159 H (70-110) mg/dL 01/15/24 01/15/24 01/15/24 Range/Units 08:20 08:20 11:49 Hct 57.8 H* (39.0-53.0) % MCV 103.7 H (80.0-100.0) fL MCHC 29.5 L (31.0-37.0) g/dL Neutrophils # 8.2 H (1.3-7.7) k/uL Lymphocytes # 0.6 L (1.0-4.8) k/uL Carbon Dioxide 37 H (22-30) mmol/L BUN 28 H (9-20) mg/dL Glucose 118 H (74-99) mg/dL POC Glucose (mg/dL) 171 H (70-110) mg/dL
--- NOTE | 2024-01-15 13:45 | P.PN ---
Subjective Progress Note Date: 01/15/24 I am following-up with patient and he feels he is doing better. Denies of any new neurological issues. Objective - Vital Signs Vital signs: Vital Signs Temp 98.2 F 01/15/24 11:32 Pulse 84 01/15/24 11:59 Resp 18 01/15/24 11:48 BP 128/80 01/15/24 11:32 Pulse Ox 92 L 01/15/24 11:48 FiO2 35 01/13/24 00:22 Intake & Output 01/14/24 01/15/24 01/15/24 18:59 06:59 18:59 Intake Total 50 240 Output Total 500 1700 1000 Balance -450 -1700 -760 Weight 109.5 kg Intake: IV 50 Oral 240 Output: Urine 500 1700 1000 Other: Voiding Method Urinal Urinal Urinal # Voids 3 - Exam GENERAL: The patient is lying in bed and is not in acute distress. NEUROLOGICAL: Higher mental function: The patient is awake, alert, oriented to self, place and time. Patient is following commands. No aphasia and no neglect. Cranial nerves: The pupils are round, equal and reactive to light and accommodation. Visual hardin are left homonymous hemianopsia to confrontation. Extraocular movement is intact no nystagmus is noted. Facial sensation is normal to touch throughout. The facial strength is normal throughout. Hearing is normal bilaterally to hand rub. Tongue is midline and moved [id number] without any difficulty. No dysarthria is noted. Shoulder shrug is normal bilaterally. Motor: The strength is 5 over 5 throughout. Normal tone and bulk. Sensation: Sensation is normal to touch throughout. Some of the workup during this hospital visit consisted of: Calcium is 9.1, sodium is 140, AST ALT is within normal limits Creatinine is within normal limits Lipid panel is triglycerides 95, cholesterol is 108, LDL is 58 and HDL is 31 TSH is 2.670 Hemoglobin A1c is 6.[address] of the head is reported as acute to subacute infarct involving the right occipital lobe and hippocampus in the distribution of the right ADMISSIONS DIRECTOR artery. There is no acute intra or extra axial hemorrhage. There is no mass effect or shift of the midline structures. I personally reviewed the CT and I feel it is more subacute infarct. Carotid duplex is reported as minimal carotid bifurcation plaque. No significant stenosis based on peak systolic velocity and ratio. CT angiography of the chest is reported as no evidence of pulmonary embolism. 5.5 left upper lobe nodule. MRI Brain: Acute to subacute CVA involving predominantly the right temporal lobe right occipital lobe with 2 foci of infarct involving bilateral parietal region and in the right cerebellum. Correlate for embolic phenomenon. Venous duplex of the lower extremity is negative for any DVTs. 2D echo was reported as normal left ventricular systolic function. Severe pulmonary hypertension. Severely enlarged right ventricle with moderate reduced right ventricular systolic function. Moderate tricuspid regurgitation. 2D echo limited: Positive bubble study. - Labs CBC & Chem 7: 01/15/24 08:20 01/15/24 08:20 Labs: Abnormal Lab Results - Last 24 Hours (Table) 01/14/24 01/14/24 01/15/24 Range/Units 16:57 20:17 06:23 Hct (39.0-53.0) % MCV (80.0-100.0) fL MCHC (31.0-37.0) g/dL Neutrophils # (1.3-7.7) k/uL Lymphocytes # (1.0-4.8) k/uL Carbon Dioxide (22-30) mmol/L BUN (9-20) mg/dL Glucose (74-99) mg/dL POC Glucose (mg/dL) 132 H 157 H 159 H (70-110) mg/dL 01/15/24 01/15/24 01/15/24 Range/Units 08:20 08:20 11:49 Hct 57.8 H* (39.0-53.0) % MCV 103.7 H (80.0-100.0) fL MCHC 29.5 L (31.0-37.0) g/dL Neutrophils # 8.2 H (1.3-7.7) k/uL Lymphocytes # 0.6 L (1.0-4.8) k/uL Carbon Dioxide 37 H (22-30) mmol/L BUN 28 H (9-20) mg/dL Glucose 118 H (74-99) mg/dL POC Glucose (mg/dL) 171 H (70-110) mg/dL Assessment and Plan Assessment: This is a 63-year-old gentleman who presented emergency department because of several days of confusion, dizziness, fall, lower extremity weakness with exertional dyspnea and some chest pain. CT of the head shows acute to subacute right posterior cerebral artery stroke. Acute to subacute stroke over bilateral hemisphere concerning for embolic stroke. Rule out cardioembolic stroke. No IV thrombolytic since unknown last normal but it appears he is outside the window and the risk outweigh the benefit. Carotid duplex is no significant stenosis. Has positive PFO. Elevated troponin Fluid overload with suspicion of acute newly diagnosed congestive heart failure exacerbation Acute hypoxia and hypercapnia respiratory failure Underlying hypertension Tobacco use Alcohol use Obesity Plan: COCO is ordered and I spoke with Cardiology N.P. and she stated it was cancelled on 01/14/2024 since patient is a high risk. Limited 2D echo with contrast shows PFO. Unknown size of PFO. If down the line patient is more stable to pursue with COCO and if PFO is large then recommend closing PFO. Patient was started on aspirin 81 mg by cardiology team in addition I started the patient on Plavix 75 mg daily. Patient was not on any antiplatelet prior to this. Continue Lipitor 80 mg nightly by primary team and that sufficient for secondary stroke prophylaxis Continue neurochecks Cardiac monitoring PT OT and ELECTROPLATING WORKER are consulted Patient was counseled on tobacco and alcohol cessation Continue thiamine 100 mg daily. Cardiology team and pulmonary team is consulted Will defer the rest of the medical management to primary and other specialist DVT prophylaxis on subcu heparin 5000 units every 12 hours Discussed with the patient and his sister who is at bedside. Also discussed with primary team. Time with Patient: Less than 30
--- NOTE | 2024-01-15 14:04 | P.PN ---
Subjective Progress Note Date: 01/15/24 This is a 63-year-old male patient who came into the emergency department because of worsening shortness of breath. The patient did complain of some increased shortness of breath. However, he had other complaints including feeling weak and dizzy and over the past few days, he has been having falls. Th e patient did not lose any consciousness. Denies having any focal neurological deficit. He did note also some increased lower extremity edema. He came into the emergency room for further evaluation. Denied having any chest pain. No fever or chills. In the emergency, he underwent a CAT scan of the brain that showed a subacute right occipital infarct and hippocampal infarct and this is attributed to right posterior cerebral artery involvement. He underwent also a chest x-ray that showed healed right sided rib fractures along with some chronic scarring and thickening of the right pleura and volume loss in the right lung base. Based on that, the patient was given a CT angiogram of the chest that showed no evidence of any pulmonary embolism. Similar volume loss was seen in the right lung base and a 5 mm nodule in the left upper lobe and some chronic scarring along the right hemithorax/pleura with elevation of the right hemidiaphragm. Noted the patient had a previous history of an extensive left lower lobe pneumonia back in 2020 and this was attributed to Legionella from which she recovered. I also noted some increased lower extremity edema. There is also some limited cellulitis in the lower extremities involving the anterior shins bilaterally. No previous history of DVT or pulmonary embolism. Carotid Dopplers were also done and it showed no hemodynamically significant stenosis. Earlier this morning, the patient becomes more short of breath. Blood gas was done and showed a pH of 7.33 with a pCO2 of 80 and pO2 of 56. Based on that, the patient was placed on a BiPAP at a pressure of 12/6 with an FiO2 of 35%. Currently, he is on bronchodilators. He is also on IV Solu-Medrol 40 mg every 8 hours. He is less bronchospastic and wheezy. He admits to drinking appr oximately 20-24 bottles of beer on a weekly basis. He smokes around 1 pack of cigarettes a day every 2 to 3 days. 01/13/2024, the patient is feeling much better. The patient is currently off the BiPAP. The patient is currently on oxygen at 4 L/min nasal cannula with a pulse ox of 95%. No significant chest pain. There is improvement in lower extremity edema as the patient is being diuresed and his fluid balance is -2.6 L over the past 24 hours. The same time, the patient shows improvement in lower extremity edema and cellulitis. The patient is currently on IV cefazolin. Meanwhile, the patient is still receiving DuoNeb nebulized treatments [id number] and the patient is on IV Solu-Medrol 40 mg every 8 hours. No angina. No palpitations. No chest pain. Labs from today showing a serum bicarb of 46, chloride is 92, sodium is at 141 and a BUN of 27 with a creatinine of 0.8. The patient was taken off the IV Lasix and the patient was placed on 40 mg of Lasix on a daily basis. Doppler of the lower extremity was negative for DVTs. Echocardiogram was also done and the patient was found to have normal LV function, severe pulmonary hypertension with severe enlargement of the right ventricle with moderate reduction of the RV systolic function and moderate amount of tricuspid regurgitation. 01/14/2024, the patient is resting comfortably in bed and has no specific complaints. Improvement in lower extremity edema and the patient was taken off the IV Lasix and the patient is currently on oral Lasix 40 mg p.o. daily. The patient remains also on IV cefazolin. Still having some difficulty breathing and the patient is on DuoNeb treatments [id number]. Experiencing some cough and congestion and wheezing the patient was started also on IV Solu-Medrol 40 mg every 8 hours which is the current dose. Remains on aspirin and Plavix. A COCO was recommended by cardiology and this may be done at later stage once more stable. The patient is currently off the BiPAP. Breathing is comfortable. Possibility of an embolic phenomena especially with his recent subacute infarct involving the posterior circulation. WBC count is at 9.1, hemoglobin 16 and platelets 218 and the patient has a sodium level of 139, BUN 21 with a creatinine of 0.8 and a serum bicarbonate of 39. Given 2 dose of Diamox yesterday with improvement in the acid-base status. Currently on Lasix 40 mg p.o. daily. Today's evaluation of 01/15/2024, I am seeing the patient for a follow-up. Resting comfortably in bed. No new complaints. Remains on oxygen at 4 L/min nasal cannula. No significant edema in lower extremities and cellulitis is also improving. The patient remains quite weak and debilitated specially following his recent stroke. In terms of his blood work, the patient serum bicarb level is at 37. Sodium levels at 139 with a potassium level of 4. The white cell count of 9.3 with a hemoglobin of 17 and a platelet count of 189. Fluid balance has been -2.1 L over the past 24 hours. The patient remains on Lasix 40 mg p.o. daily and the patient remains on Diamox. The patient remains on IV cefazolin. The patient remains on bronchodilators and IV Solu-Medrol 40 mg every 8 hours. Communicating. No other new complaints otherwise for now. Objective - Vital Signs Vital signs: Vital Signs Temp 97.8 F 01/15/24 08:36 Pulse 86 01/15/24 08:36 Resp 18 01/15/24 08:36 BP 149/88 01/15/24 08:36 Pulse Ox 97 01/15/24 08:36 FiO2 35 01/13/24 00:22 Intake & Output 01/14/24 01/15/24 01/15/24 18:59 06:59 18:59 Intake Total 50 240 Output Total 500 1700 1000 Balance -450 -1700 -760 Weight 109.5 kg Intake: IV 50 Oral 240 Output: Urine 500 1700 1000 Other: Voiding Method Urinal Urinal Urinal # Voids 3 - Exam GENERAL EXAM: Alert, pleasant 63-year-old male patient, awake and alert and currently off the BiPAP and the patient is currently on 4 L of oxygen by nasal cannula HEAD: Normocephalic. EYES: Normal reaction of pupils, equal size. NOSE: Clear with pink turbinates. THROAT: No erythema or exudates. NECK: No masses, no JVD. CHEST: No chest wall deformity. LUNGS: Equal air entry with bilateral end expiratory wheeze, crackles in the bases, diminished. Scattered expiratory wheezes throughout the lung hardin bilaterally CVS: S1 and S2 normal with no audible murmur, regular rhythm. ABDOMEN: No hepatosplenomegaly, normal bowel sounds, no guarding or rigidity. SPINE: No scoliosis or deformity SKIN: No rashes, cellulitis involving lower extremities bilaterally involving the shins and the patient has edema lower extremities bilaterally, improving and the swelling lower extremities bilaterally CENTRAL NERVOUS SYSTEM: No focal deficits, tone is normal in all 4 extremities. EXTREMITIES: There is no peripheral edema. No clubbing, no cyanosis. Peripheral pulses are intact. - Labs CBC & Chem 7: 01/15/24 08:20 01/15/24 08:20 Labs: Abnormal Lab Results - Last 24 Hours (Table) 01/14/24 01/14/24 01/15/24 Range/Units 16:57 20:17 06:23 Hct (39.0-53.0) % MCV (80.0-100.0) fL MCHC (31.0-37.0) g/dL POC Glucose (mg/dL) 132 H 157 H 159 H (70-110) mg/dL 01/15/24 Range/Units 08:20 Hct 57.8 H* (39.0-53.0) % MCV 103.7 H (80.0-100.0) fL MCHC 29.5 L (31.0-37.0) g/dL POC Glucose (mg/dL) (70-110) mg/dL Assessment and Plan Plan: Acute COPD exacerbation with a component of hypoxic respiratory failure and an acute on top of chronic hypoxic hypercapnic respiratory failure. The patient is currently on a BiPAP. Reviewed the CTA of the chest and there is no evidence of any pulm embolism. No indication for pneumonia. However, there is chronic volume loss and pleural thickening around the right hemithorax along with old healed right-sided rib fractures and right hemidiaphragmatic elevation. The patient was taken off the BiPAP and the patient is currently on 4 L of oxygen by nasal cannula. Previous traumatic right-sided rib fracture, healed along with pleural thickening and scarring Right hemidiaphragmatic elevation, mild Acute/subacute CVA involving the right occipital and hippocampal area, with hi story of posterior circulation CVA Severe right-sided heart failure with pulmonary hypertension. Preserved LV function. Generalized weakness and dizziness, prior related to CVA Lower extremity cellulitis/edema, Doppler of the lower extremity has been negative for DVT, edema is improving Previous history of Legionella pneumonia back in 2020 involving left lower lobe, recovered Nonspecific 5 mm left upper lobe pulmonary nodule Alcoholism Smoker Hypertension Metabolic alkalosis secondary to diuresis, improved with use of Diamox Plan currently on 4 L of oxygen by nasal cannula, should be able to wean down the FiO2 as tolerated to maintain saturation above 90% Overall respiratory status is stable Continue bronchodilators with Tressa ennis [id number] IV Solu-Medrol 40 mg every 8 hours to be continued for another 24 hours Perforomist and Pulmicort nebulized treatments twice a day Lasix 40 m p.o. daily the patient was found to have some metabolic alkalosis and metabolic alkalosis improved and will continue the Diamox for another 24 hours the metabolic alkalosis essentially improving, the patient remains in a negative fluid balance Continue IV cefazolin regarding lower extremity cellulitis no signs of any delirium tremens Echocardiogram shows a preserved LV function with severe pulmonary hypertension and RV dilatation. COCO once the patient is more stable Continue aspirin and Plavix Neurology and cardiology follow-up Will continue to follow
--- NOTE | 2024-01-15 14:53 | P.PN ---
Subjective Progress Note Date: 01/15/24 History of present illness: This is a 63-year-old male with past medical history of hypertension, COPD, alcohol abuse, tobacco use and dependence. We have been asked to evaluate the patient for NSTEMI. Patient is currently on BiPAP somewhat somnolent but answers a few questions. He states that he came into the hospital because he was confused and he also had shortness of breath. He states that been going on for couple of days with generalized weakness. He denies having any chest pain. He is a smoker currently of 1/3 pack/day. No cough no wheezing. He does have lower extremity edema. No nausea or vomiting. No bleeding. No history of stroke or seizure. He does drink caffeine daily and he does drink alcohol regularly but not every day. [facility] most of [facility] He states he feels a little bit better from yesterday. Blood pressure 125/84, heart rate 93, pulse ox 88% on BiPAP. EKG: Sinus rhythm with anterior T wave abnormalities Chest x-ray: Laboratory studies: WBC 6.5, hemoglobin 16.2. D-dimer 5.14. Home cardiac medications: Amlodipine 2.5 mg daily, chlorthalidone 25 mg daily, lisinopril 40 mg daily Echocardiogram performed in 2020 revealed normal EF 01/12 Patient is seen today in follow-up. He is sitting up in bed awake and alert, multiple family members are at the bedside. Patient states that he is feeling much better today. He denies having any chest pain, no shortness of breath. Lower extremity edema is improved. He is on IV Lasix 40 mg twice daily. Heart rate is in the 90s, pulse ox 94% on 4 L nasal cannula, blood pressure 130/84. Repeat blood work reveals sodium 141, potassium 3.5, CO2 46, BUN 27 creatinine 0.83. proBNP 6670. Patient has a negative fluid balance and documented weight loss. Echocardiogram reveals EF of 50 to 55%, severe pulmonary hypertension, severely enlarged right ventricle with moderately reduced RV systolic function, moderate tricuspid regurgitation. Results of echocardiogram reviewed with the patient. 01/13 Patient underwent MRI of the brain which revealed acute to subacute CVA right temporal lobe right occipital lobe with 2 foci of infarct involving the bilateral parietal regions in the right cerebellum. Correlate for embolic phenomenon. Nonspecific white matter changes. Neurology has requested a COCO which at this time does not seem to be appropriate due to patient's hypercapnic and risk for excessive sedation. We will repeat a transthoracic echocardiogram with contrast. Patient states that he is feeling well. His breathing is much better. Telemetry is a sinus rhythm. 01/14 Echocardiogram with bubble study completed yesterday was positive. Discussed results with the patient and plan is for him to follow-up in the office to decide if any further workup is needed. Patient to be discharged home on aspirin and Plavix. Blood pressure 128/80, heart rate 90, pulse ox 95% on 4 L nasal cannula. Repeat blood work reveals hemoglobin 17. Creatinine 0.98. Physical examination: Gen: This is a 63-year-old male appears to be in no acute distress VS: reviewed HEENT: Head is atraumatic, normocephalic. Pupils equal, round. Sclerae is anicteric. NECK: Supple. No JVD. LUNGS: Decreased air exchange. No intercostal retractions. HEART: Regular rate and rhythm. Systolic murmur. ABDOMEN: Soft No tenderness. EXTREMITIES: Bilateral lower extremity edema is improved. No calf tenderness. NEUROLOGICAL: Patient is awake, alert and oriented x 3. Assessment: Acute hypoxic and hypercapnic respiratory failure requiring BiPAP initially Acute diastolic heart failure Elevated troponin, type II GA secondary to hypoxia Acute to subacute right posterior cerebral artery ischemic stroke, possible embolic Metabolic encephalopathy Hypertension COPD Tobacco use and dependence Alcohol abuse Plan: Continue the following cardiac medications: Aspirin 81 mg daily, atorvastatin 80 mg daily, Plavix started by neurology, lisinopril 20 mg daily, Lasix oral 40 mg daily Monitor ROSLYN, daily weights, electrolytes and renal function Smoking cessation, patient will be provided the [employer] quit line information at discharge Patient is cleared for discharge from cardiology and may follow-up in the office with Dr. Fleming in 2 weeks and any further workup regarding PFO will be completed then as well as a possible event monitor outpatient to rule out atrial fibrillation. Cardiology will sign off this case and follow on an as-needed basis. Please reconsult for any new concerns. Nurse practitioner note has been reviewed, I agree with documented findings and plan of care. Patient was seen and examined. Objective - Vital Signs Vital signs: Vital Signs Temp 97.8 F 01/15/24 08:36 Pulse 86 01/15/24 08:36 Resp 18 01/15/24 08:36 BP 149/88 01/15/24 08:36 Pulse Ox 97 01/15/24 08:36 FiO2 35 01/13/24 00:22 Intake & Output 01/14/24 01/15/24 01/15/24 18:59 06:59 18:59 Intake Total 50 240 Output Total 500 1700 1000 Balance -450 -2777 -760 Weight 109.5 kg Intake: IV 50 Oral 240 Output: Urine 500 1700 1000 Other: Voiding Method Urinal Urinal Urinal # Voids 3 - Labs CBC & Chem 7: 01/15/24 08:20 01/15/24 08:20 Labs: Abnormal Lab Results - Last 24 Hours (Table) 01/14/24 01/14/24 01/15/24 Range/Units 16:57 20:17 06:23 Hct (39.0-53.0) % MCV (80.0-100.0) fL MCHC (31.0-37.0) g/dL Neutrophils # (1.3-7.7) k/uL Lymphocytes # (1.0-4.8) k/uL Carbon Dioxide (22-30) mmol/L BUN (9-20) mg/dL Glucose (74-99) mg/dL POC Glucose (mg/dL) 132 H 157 H 159 H (70-110) mg/dL 01/15/24 01/15/24 Range/Units 08:20 08:20 Hct 57.8 H* (39.0-53.0) % MCV 103.7 H (80.0-100.0) fL MCHC 29.5 L (31.0-37.0) g/dL Neutrophils # 8.2 H (1.3-7.7) k/uL Lymphocytes # 0.6 L (1.0-4.8) k/uL Carbon Dioxide 37 H (22-30) mmol/L BUN 28 H (9-20) mg/dL Glucose 118 H (74-99) mg/dL POC Glucose (mg/dL) (70-110) mg/dL
[2024-01-15 16:41] LABS: Glucose,Whole Blood 180 mg/dL (70-110)
[2024-01-15] MEDS ORDERED: DEXTROSE 50% SYRINGE 50 ML IVP PRN ×2 (16:47)
[2024-01-15] MEDS: INSULIN ASPART (NovoLOG) 100 UNIT/ML VIAL SQ SCH (16:53)
[2024-01-15 19:51] LABS: Glucose,Whole Blood 155 mg/dL (70-110)
[2024-01-16 06:04] LABS: Glucose,Whole Blood 121 mg/dL (70-110)
[2024-01-16 08:28] LABS: HGB 17.3 gm/dL (13.0-17.5); Hypochromasia Marked; MCH 30.3 pg (25.0-35.0); MCHC 29.7 g/dL (31.0-37.0); MCV 102.2 fL (80.0-100.0); Macrocytosis Slight; Mean Platelet Volume 7.5; Platelet Count 212 k/uL (150-450); RDW 13.6 % (11.5-15.5); WBC 8.1 k/uL (3.8-10.6)
[2024-01-16 08:43] LABS: African American GFR (CKD) >90 (>60 ml/min/1.73 sqM); Anion Gap 5 mmol/L; Blood Urea Nitrogen 31 mg/dL (9-20); Calcium 9.2 mg/dL (8.4-10.2); Carbon Dioxide 31 mmol/L (22-30); Chloride 103 mmol/L (98-107); Glucose 130 mg/dL (74-99); Magnesium 2.2 mg/dL (1.6-2.3); Non-African American GFR(CKD) >90 (>60 ml/min/1.73 sqM); Potassium 4.1 mmol/L (3.5-5.1); Sodium 139 mmol/L (137-145)
[2024-01-16 08:48] LABS: HCT 58.3 % (39.0-53.0)
[2024-01-16 11:45] LABS: Glucose,Whole Blood 188 mg/dL (70-110)
[2024-01-16 11:48] VITALS: BP 133/84; TEMP 98.2
[2024-01-16 12:04] VITALS: RESP 18
--- NOTE | 2024-01-16 13:04 | P.PN ---
Subjective Progress Note Date: 01/16/24 I am following-up with patient and he feels he is doing better. His respiratory status is improving. Objective - Vital Signs Vital signs: Vital Signs Temp 98.2 F 01/16/24 11:46 Pulse 99 01/16/24 11:54 Resp 18 01/16/24 11:54 BP 133/84 01/16/24 11:46 Pulse Ox 93 L 01/16/24 11:46 FiO2 35 01/13/24 00:22 Intake & Output 01/15/24 01/16/24 01/16/24 18:59 06:59 18:59 Intake Total 540 1080 360 Output Total 1675 1300 Balance -1135 -220 360 Weight 111.6 kg Intake: IV 10 Invasive Line 1 10 Intake, IV Titration 50 Amount ceFAZolin 1,000 mg In 50 Sodium Chloride 0.9% 50 ml @ 100 mls/hr IVPB Q8HR [facility] Rx#:[id number] Oral 480 1080 360 Output: Urine 1675 1300 Other: Voiding Method Urinal Urinal Urinal # Voids 5 - Exam GENERAL: The patient is lying in bed and is not in acute distress. NEUROLOGICAL: Higher mental function: The patient is awake, alert, oriented to self, place and time. Patient is following commands. No aphasia and no neglect. Cranial nerves: The pupils are round, equal and reactive to light and accommodation. Visual hardin are left homonymous hemianopsia to confrontation. Extraocular movement is intact no nystagmus is noted. Facial sensation is no rmal to touch throughout. The facial strength is normal throughout. Hearing is normal bilaterally to hand rub. Tongue is midline and moved [id number] without any difficulty. No dysarthria is noted. Shoulder shrug is normal bilaterally. Motor: The strength is 5 over 5 throughout. Normal tone and bulk. Sensation: Sensation is normal to touch throughout. Some of the workup during this hospital visit consisted of: Calcium is 9.1, sodium is 140, AST ALT is within normal limits Creatinine is within normal limits Lipid panel is triglycerides 95, cholesterol is 108, LDL is 58 and HDL is 31 TSH is 2.670 Hemoglobin A1c is 6.[address] of the head is reported as acute to subacute infarct involving the right occipital lobe and hippocampus in the distribution of the right SALES AGENT artery. There is no acute intra or extra axial hemorrhage. There is no mass effect or shift of the midline structures. I personally reviewed the CT and I feel it is more subacute infarct. Carotid duplex is reported as minimal carotid bifurcation plaque. No significant stenosis based on peak systolic velocity and ratio. CT angiography of the chest is reported as no evidence of pulmonary embolism. 5.5 left upper lobe nodule. MRI Brain: Acute to subacute CVA involving predominantly the right temporal lobe right occipital lobe with 2 foci of infarct involving bilateral parietal region and in the right cerebellum. Correlate for embolic phenomenon. Venous duplex of the lower extremity is negative for any DVTs. 2D echo was reported as normal left ventricular systolic function. Severe pulmonary hypertension. Severely enlarged right ventricle with moderate reduced right ventricular systolic function. Moderate tricuspid regurgitation. 2D echo limited: Positive bubble study. - Labs CBC & Chem 7: 01/16/24 06:39 01/16/24 06:39 Labs: Abnormal Lab Results - Last 24 Hours (Table) 01/15/24 01/15/24 01/16/24 Range/Units 16:40 19:31 05:54 Hct (39.0-53.0) % MCV (80.0-100.0) fL MCHC (31.0-37.0) g/dL Carbon Dioxide (22-30) mmol/L BUN (9-20) mg/dL Glucose (74-99) mg/dL POC Glucose (mg/dL) 180 H 155 H 121 H (70-110) mg/dL 01/16/24 01/16/24 01/16/24 Range/Units 06:39 06:39 11:43 Hct 58.3 H* (39.0-53.0) % MCV 102.2 H (80.0-100.0) fL MCHC 29.7 L (31.0-37.0) g/dL Carbon Dioxide 31 H (22-30) mmol/L BUN 31 H (9-20) mg/dL Glucose 130 H (74-99) mg/dL POC Glucose (mg/dL) 188 H (70-110) mg/dL Assessment and Plan Assessment: This is a 63-year-old gentleman who presented emergency department because of several days of confusion, dizziness, fall, lower extremity weakness with exertional dyspnea and some chest pain. CT of the head shows acute to subacute right posterior cerebral artery stroke. Acute to subacute stroke over bilateral hemisphere concerning for embolic stroke. Rule out cardioembolic stroke. No IV thrombolytic since unknown last normal but it appears he is outside the window and the risk outweigh the benefit. Carotid duplex is no significant stenosis. Has positive PFO. Elevated troponin Fluid overload with suspicion of acute newly diagnosed congestive heart failure exacerbation Acute hypoxia and hypercapnia respiratory failure Underlying hypertension Tobacco use Alcohol use Obesity Plan: COCO is ordered and I spoke with Cardiology N.P. and she stated it was cancelled on 01/14/2024 since patient is a high risk. Limited 2D echo with contrast shows PFO. Unknown size of PFO. His respiratory status is improving and recommend to pursue with COCO as inpatient is stable. If PFO is large then recommend closing PFO. Patient was started on aspirin 81 mg by cardiology team in addition I started the patient on Plavix 75 mg daily. Patient was not on any antiplatelet prior to this. Continue Lipitor 80 mg nightly by primary team and that sufficient for secondary stroke prophylaxis Continue neurochecks Cardiac monitoring PT OT and STRIP MACHINE TENDER are consulted Patient was counseled on tobacco and alcohol cessation Continue thiamine 100 mg daily. Cardiology team and pulmonary team is consulted Will defer the rest of the medical management to primary and other specialist DVT prophylaxis on subcu heparin 5000 units every 12 hours Discussed with the patient and primary team. Time with Patient: Less than 30
--- NOTE | 2024-01-16 13:38 | P.DS ---
Providers Date of admission: 01/11/24 20:24 Expected date of discharge: 01/16/24 Attending physician: Hussein Aguirre MD Consults: 01/11/24 20:23 Consult Physician Routine Consulting Provider: [facility] Consult Reason/Comments: nstemi, chf Do you want consulting provider notified?: Yes Consult Physician Routine Consulting Provider: Brayan Bowers Consult Reason/Comments: subacute cva Do you want consulting provider notified?: Already Contacted 01/12/24 07:55 Consult Physician Routine Consulting Provider: Fredy Modi Consult Reason/Comments: acute respiratory failure, currently requiring BIPAP Do you want consulting provider notified?: Yes Primary care physician: [facility] Hospital Course: Discharge Diagnosis: Acute/subacute ischemic strokes, embolic Acute hypoxic and hypercapnic respiratory failure Acute CHF exacerbation, diastolic NSTEMI, likely type II Hypertension Acute COPD exacerbation Contraction alkalosis Alcohol dependence Lower extremity cellulitis Nicotine dependence Hospital Course: Patient is a pleasant 63-year-old male with a past medical history of hypertension, daily alcohol abuse and nicotine dependence. He presented to the emergency department with a chief complaint of persistent dizziness and lower extremity edema. Patient reported the symptoms began a few weeks ago and have persistently worsened. Upon arrival to our facility, patient underwent evaluation in the emergency department. Vital signs upon arrival show blood pressure 135/95, heart rate 84, respiratory rate 18, temp 97.9 F and SpO2 of 84% on room air increasing to 93% on 4 L supplemental oxygen. EKG completed showing normal sinus rhythm at 82 bpm with T wave inversion in leads III, aVF, and V2 through V6. Chest x-ray completed showing healed trauma to right hemithorax with multiple healed right fractures and chronic blunting of the right costophrenic angle with possible small right pleural effusion. CT brain revealing acute to subacute infarct involving the right occipital lobe and hypothalamus in the distribution of the right posterior cerebral artery. Labs were completed and reviewed. CBC unremarkable. Coagulation profile showing elevated PT of 16.0, INR 1.6, and elevated D-dimer of 5.14. pH showing hypercarbia with bicarb of 36 and mild prerenal azotemia with BUN of 23. Lactic acid was normal findings at 1.3. Blood glucose was 92. Magnesium 2.0. Liver profile showing hyperbilirubinemia with total bili of 1.8. Troponin was elevated at 0.511 with proBNP of 8560. Chest CTA was completed negative for pul monary emboli showing a 5.5 mm left upper lobe nodule and mild ascites. Carotid Dopplers completed showing minimal carotid bifurcation plaque with no significant stenosis. Bilateral venous Dopplers then completed negative for DVT. Patient was admitted under services with consultation to cardiology and neurology. Overnight patient's respiratory status worsened and he was again found to be 85% on 4 L O2 and requiring placement on continuous BiPAP. ABG was obtained showing respiratory acidosis with pH 7.33, pCO2 of 80, PaO2 56%, bicarb 42, total CO2 of 44, and ABG O2 saturation of 87.6%. Consult was also placed to sales operations manager at this time. Likely multifactorial including COPD exacerbation and diastolic heart failure. Now back to room air. Brain MRI showed acute to subacute CVA predominantly involving the right temporal lobe, right occipital lobe with 2 foci of infarct involving the bilateral parietal regions in the right cerebellum, likely embolic. Unable to tolerate COCO due to respiratory status. TTE with contrast was positive for bubble study. Patient needs outpatient follow-up with cardiology for possible PFO closure, and event monitor placement. Patient to be discharged on dual antiplatelet therapy as well as statin. Plan was discussed with cardiology, and neurology. Patient also being discharged on inhaler therapy as well as oral steroids. Patient seen and examined at bedside. Vital signs reviewed and stable. General: Nontoxic, no distress, appears at stated age Derm: Warm, dry, bilateral lower extremity erythema Head: Atraumatic, normocephalic, symmetric Eyes: EOMI, no lid lag, anicteric sclera Mouth: No lip lesion, mucus membranes moist Cardiovascular: S1S2 reg, no murmur Lungs: CTA bilateral, no rhonchi, no rales, no accessory muscle use Abdominal: Soft, nontender to palpation, no guarding, no appreciable organomegaly Ext: No gross muscle atrophy, trace edema, no contractures Neuro: CN II-XI grossly intact, no focal neuro deficits Psych: Alert, oriented, appropriate affect A total of 33 minutes of time were spent preparing this complex discharge summary. Patient was discharged on 01/16/2024 at 1311. Patient Condition at Discharge: Stable Plan - Discharge Summary Discharge Rx Participant: No New Discharge Prescriptions: New Ipratropium/Albuter 20-100Mcg [Combivent Respimat 20-100Mcg Inhaler] 1 puff INHALATION BID PRN #4 gm PRN Reason: Shortness Of Breath Or Wheezing predniSONE [Deltasone] 40 mg PO DAILY #2 tab Folic Acid 1 mg PO DAILY #90 tab Furosemide [Lasix] 40 mg PO DAILY #90 tab Atorvastatin [Lipitor] 80 mg PO HS #90 tab Clopidogrel [Plavix] 75 mg PO DAILY #90 tab lisinopriL [Zestril] 20 mg PO DAILY #90 tab Cephalexin [Keflex] 500 mg PO Q6HR 5 Days #20 cap Aspirin 81 mg PO DAILY #90 tab Multivitamins, Thera [Multivitamin (formulary)] 1 each PO DAILY #90 tab Fluticasone/Umeclidin/Vilanter [Trelegy Ellipta 100-62.5-25] 1 inhalation INHALATION DAILY #1 each Thiamine [Vitamin B-1] 100 mg PO DAILY #90 tab Discontinued Chlorthalidone [Hygroton] 25 mg PO DAILY lisinopriL [Zestril] 40 mg PO DAILY amLODIPine [Norvasc] 2.5 mg PO DAILY Discharge Medication List Aspirin 81 mg PO DAILY #90 tab 01/16/24 [Rx] Atorvastatin [Lipitor] 80 mg PO HS #90 tab 01/16/24 [Rx] Cephalexin [Keflex] 500 mg PO Q6HR 5 Days #20 cap 01/16/24 [Rx] Clopidogrel [Plavix] 75 mg PO DAILY #90 tab 01/16/24 [Rx] Fluticasone/Umeclidin/Vilanter [Trelegy Ellipta 100-62.5-25] 1 inhalation INHALATION DAILY #1 each 01/16/24 [Rx] Folic Acid 1 mg PO DAILY #90 tab 01/16/24 [Rx] Furosemide [Lasix] 40 mg PO DAILY #90 tab 01/16/24 [Rx] Ipratropium/Albuter 20-100Mcg [Combivent Respimat 20-100Mcg Inhaler] 1 puff INHALATION BID PRN #4 gm 01/16/24 [Rx] Multivitamins, Thera [Multivitamin (formulary)] 1 each PO DAILY #90 tab 01/16/24 [Rx] Thiamine [Vitamin B-1] 100 mg PO DAILY #90 tab 01/16/24 [Rx] lisinopriL [Zestril] 20 mg PO DAILY #90 tab 01/16/24 [Rx] predniSONE [Deltasone] 40 mg PO DAILY #2 tab 01/16/24 [Rx] Follow up Appointment(s)/Referral(s): [facility] [Provider Group] - 1 Week (Referral for local eye doctor) Wayne Fleming MD [STAFF PHYSICIAN] - 2 Weeks (Follow up in two weeks to plan for cardiac cath/PFO repair. Possibility of placement event monitor as well. Offices will call you THURSDAY ) Jerrell Moctezuma MD [REFERRING] - 1 Week (Referral for neurology follow up) Fredy Modi MD [STAFF PHYSICIAN] - 1 Week (Please call THURSDAY to make a post hospital follow up appointment) [facility] [Primary Care Provider] - 1-2 days (Please call THURSDAY to make a post hospital follow up appointment with your primary care physician) Patient Instructions/Handouts: Heart Attack (DC), COPD (Chronic Obstructive Pulmonary Disease) (DC), Ischemic Stroke (DC), Patent Foramen Ovale (DC) Activity/Diet/Wound Care/Special Instructions: OR arranging home care services - RN and physical therapy Neurology is recommending a follow up with ophthalmology to assess vision. NO DRIVING until this follow up and clearance is given by baton teacher Please see your PCP, and specialists. You will need a heart monitor from cardiology office. Discharge Disposition: HOME SELF-CARE
--- NOTE | 2024-01-16 14:15 | P.PN ---
Subjective Progress Note Date: 01/16/24 This is a 63-year-old male patient who came into the emergency department because of worsening shortness of breath. The patient did complain of some increased shortness of breath. However, he had other complaints including feeling weak and dizzy and over the past few days, he has been having falls. Th e patient did not lose any consciousness. Denies having any focal neurological deficit. He did note also some increased lower extremity edema. He came into the emergency room for further evaluation. Denied having any chest pain. No fever or chills. In the emergency, he underwent a CAT scan of the brain that showed a subacute right occipital infarct and hippocampal infarct and this is attributed to right posterior cerebral artery involvement. He underwent also a chest x-ray that showed healed right sided rib fractures along with some chronic scarring and thickening of the right pleura and volume loss in the right lung base. Based on that, the patient was given a CT angiogram of the chest that showed no evidence of any pulmonary embolism. Similar volume loss was seen in the right lung base and a 5 mm nodule in the left upper lobe and some chronic scarring along the right hemithorax/pleura with elevation of the right hemidiaphragm. Noted the patient had a previous history of an extensive left lower lobe pneumonia back in 2020 and this was attributed to Legionella from which she recovered. I also noted some increased lower extremity edema. There is also some limited cellulitis in the lower extremities involving the anterior shins bilaterally. No previous history of DVT or pulmonary embolism. Carotid Dopplers were also done and it showed no hemodynamically significant stenosis. Earlier this morning, the patient becomes more short of breath. Blood gas was done and showed a pH of 7.33 with a pCO2 of 80 and pO2 of 56. Based on that, the patient was placed on a BiPAP at a pressure of 12/6 with an FiO2 of 35%. Currently, he is on bronchodilators. He is also on IV Solu-Medrol 40 mg every 8 hours. He is less bronchospastic and wheezy. He admits to drinking appr oximately 20-24 bottles of beer on a weekly basis. He smokes around 1 pack of cigarettes a day every 2 to 3 days. 01/13/2024, the patient is feeling much better. The patient is currently off the BiPAP. The patient is currently on oxygen at 4 L/min nasal cannula with a pulse ox of 95%. No significant chest pain. There is improvement in lower extremity edema as the patient is being diuresed and his fluid balance is -2.6 L over the past 24 hours. The same time, the patient shows improvement in lower extremity edema and cellulitis. The patient is currently on IV cefazolin. Meanwhile, the patient is still receiving DuoNeb nebulized treatments [id number] and the patient is on IV Solu-Medrol 40 mg every 8 hours. No angina. No palpitations. No chest pain. Labs from today showing a serum bicarb of 46, chloride is 92, sodium is at 141 and a BUN of 27 with a creatinine of 0.8. The patient was taken off the IV Lasix and the patient was placed on 40 mg of Lasix on a daily basis. Doppler of the lower extremity was negative for DVTs. Echocardiogram was also done and the patient was found to have normal LV function, severe pulmonary hypertension with severe enlargement of the right ventricle with moderate reduction of the RV systolic function and moderate amount of tricuspid regurgitation. 01/14/2024, the patient is resting comfortably in bed and has no specific complaints. Improvement in lower extremity edema and the patient was taken off the IV Lasix and the patient is currently on oral Lasix 40 mg p.o. daily. The patient remains also on IV cefazolin. Still having some difficulty breathing and the patient is on DuoNeb treatments [id number]. Experiencing some cough and congestion and wheezing the patient was started also on IV Solu-Medrol 40 mg every 8 hours which is the current dose. Remains on aspirin and Plavix. A COCO was recommended by cardiology and this may be done at later stage once more stable. The patient is currently off the BiPAP. Breathing is comfortable. Possibility of an embolic phenomena especially with his recent subacute infarct involving the posterior circulation. WBC count is at 9.1, hemoglobin 16 and platelets 218 and the patient has a sodium level of 139, BUN 21 with a creatinine of 0.8 and a serum bicarbonate of 39. Given 2 dose of Diamox yesterday with improvement in the acid-base status. Currently on Lasix 40 mg p.o. daily. Today's evaluation of 01/15/2024, I am seeing the patient for a follow-up. Resting comfortably in bed. No new complaints. Remains on oxygen at 4 L/min nasal cannula. No significant edema in lower extremities and cellulitis is also improving. The patient remains quite weak and debilitated specially following his recent stroke. In terms of his blood work, the patient serum bicarb level is at 37. Sodium levels at 139 with a potassium level of 4. The white cell count of 9.3 with a hemoglobin of 17 and a platelet count of 189. Fluid balance has been -2.1 L over the past 24 hours. The patient remains on Lasix 40 mg p.o. daily and the patient remains on Diamox. The patient remains on IV cefazolin. The patient remains on bronchodilators and IV Solu-Medrol 40 mg every 8 hours. Communicating. No other new complaints otherwise for now. Plan 01/16/2024, seen the patient for a follow-up. Patient is currently on room air oxygen. Denies having any significant shortness of breath and a pulse ox 94% room air oxygen. Remains on DuoNeb nebulized treatments [id number]. Remains on Pulmicort and Perforomist nebulized treatments and IV Solu-Medrol 40 mg every 8 hours. The patient is also on Lasix 40 mg p.o. daily. The patient remains on IV cefazolin. No significant volume overload or edema in lower extremities. The white cell count is at 8.1 with a hemoglobin 17.3 and a platelet count of 212. BUN 31 with a creatinine of 0.8 and sodium levels at 139 and a serum bicarb is at 31. No other significant events overnight. The patient is resting comfortably in bed. Objective - Vital Signs Vital signs: Vital Signs Temp 98.3 F 01/16/24 07:35 Pulse 83 01/16/24 07:35 Resp 16 01/16/24 07:35 BP 150/94 01/16/24 07:35 Pulse Ox 94 L 01/16/24 07:35 FiO2 35 01/13/24 00:22 Intake & Output 01/15/24 01/16/24 01/16/24 18:59 06:59 18:59 Intake Total 540 1080 360 Output Total 1675 1300 Balance -1135 -220 360 Weight 111.6 kg Intake: IV 10 Invasive Line 1 10 Intake, IV Titration 50 Amount ceFAZolin 1,000 mg In 50 Sodium Chloride 0.9% 50 ml @ 100 mls/hr IVPB Q8HR [facility] Rx#:[id number] Oral 480 1080 360 Output: Urine 1675 1300 Other: Voiding Method Urinal Urinal Urinal # Voids 5 - Exam GENERAL EXAM: Alert, pleasant 63-year-old male patient, awake and alert she is currently on room air oxygen. HEAD: Normocephalic. EYES: Normal reaction of pupils, equal size. NOSE: Clear with pink turbinates. THROAT: No erythema or exudates. NECK: No masses, no JVD. CHEST: No chest wall deformity. LUNGS: Equal air entry with bilateral end expiratory wheeze, crackles in the bases, diminished. Scattered expiratory wheezes throughout the lung hardin bilaterally CVS: S1 and S2 normal with no audible murmur, regular rhythm. ABDOMEN: No hepatosplenomegaly, normal bowel sounds, no guarding or rigidity. SPINE: No scoliosis or deformity SKIN: No rashes, cellulitis involving lower extremities bilaterally involving the shins and the patient has edema lower extremities bilaterally, improving and the swelling lower extremities bilaterally CENTRAL NERVOUS SYSTEM: No focal deficits, tone is normal in all 4 extremities. EXTREMITIES: There is no peripheral edema. No clubbing, no cyanosis. Peripheral pulses are intact. - Labs CBC & Chem 7: 01/16/24 06:39 01/16/24 06:39 Labs: Abnormal Lab Results - Last 24 Hours (Table) 01/15/24 01/15/24 01/15/24 Range/Units 08:20 08:20 11:49 Hct 57.8 H* (39.0-53.0) % MCV 103.7 H (80.0-100.0) fL MCHC 29.5 L (31.0-37.0) g/dL Neutrophils # 8.2 H (1.3-7.7) k/uL Lymphocytes # 0.6 L (1.0-4.8) k/uL Carbon Dioxide 37 H (22-30) mmol/L BUN 28 H (9-20) mg/dL Glucose 118 H (74-99) mg/dL POC Glucose (mg/dL) 171 H (70-110) mg/dL 01/15/24 01/15/24 01/16/24 Range/Units 16:40 19:31 05:54 Hct (39.0-53.0) % MCV (80.0-100.0) fL MCHC (31.0-37.0) g/dL Neutrophils # (1.3-7.7) k/uL Lymphocytes # (1.0-4.8) k/uL Carbon Dioxide (22-30) mmol/L BUN (9-20) mg/dL Glucose (74-99) mg/dL POC Glucose (mg/dL) 180 H 155 H 121 H (70-110) mg/dL Assessment and Plan Plan: Acute COPD exacerbation with a component of hypoxic respiratory failure and an acute on top of chronic hypoxic hypercapnic respiratory failure. The patient is currently on a BiPAP. Reviewed the CTA of the chest and there is no evidence of any pulm embolism. No indication for pneumonia. However, there is chronic volume loss and pleural thickening around the right hemithorax along with old healed right-sided rib fractures and right hemidiaphragmatic elevation. The patient was taken off the BiPAP and the patient was treated with a combination of diuretics and steroids for COPD exacerbation and volume overload. Improved considerably and the patient is currently on room air oxygen. 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 Preserved LV function. Generalized weakness and dizziness, prior related to CVA Lower extremity cellulitis/edema, Doppler of the lower extremity has been negative for DVT, edema is improving Previous history of Legionella pneumonia back in 2020 involving left lower lobe, recovered Nonspecific 5 mm left upper lobe pulmonary nodule Alcoholism Smoker Hypertension Metabolic alkalosis secondary to diuresis, improved with use of Diamox and a serum bicarb is down to 31 Plan Patient is currently on room air oxygen Overall respiratory status is stable Discontinue Diamox Continue bronchodilators with DuoNeb updrafts [id number] Stop the IV Solu-Medrol and start the patient on prednisone burst taper Lasix 40 m p.o. daily IV cefazolin can be switched to oral antibiotics at time of discharge Echocardiogram shows a preserved LV function with severe pulmonary hypertension and RV dilatation. COCO once the patient is more stable Continue aspirin and Plavix Will continue to follow
[2024-01-16 15:53] VITALS: PULSE 92
[2024-01-16 16:36] LABS: Glucose,Whole Blood 113 mg/dL (70-110)
== END 2024-01-16 18:23 | disposition home or self-care (01) | DRG 64 ==
LOC: EC 17:47 → 3SCARD 20:24
PROVIDERS: ADMIT Internal Medicine; ATTEND Internal Medicine
DX: I63.431 Cerebral infarction due to embolism of right posterior cerebral artery (principal); G93.41 Metabolic encephalopathy; I50.31 Acute diastolic (congestive) heart failure; I21.A1 Myocardial infarction type 2; I50.33 Acute on chronic diastolic (congestive) heart failure; J96.22 Acute and chronic respiratory failure with hypercapnia; E87.4 Mixed disorder of acid-base balance; J44.1 Chronic obstructive pulmonary disease with (acute) exacerbation; L03.116 Cellulitis of left lower limb; L03.115 Cellulitis of right lower limb; Q21.12 Patent foramen ovale; I27.20 Pulmonary hypertension, unspecified; H53.462 Homonymous bilateral field defects, left side; I11.0 Hypertensive heart disease with heart failure; E66.9 Obesity, unspecified; F10.20 Alcohol dependence, uncomplicated; I07.1 Rheumatic tricuspid insufficiency; Z68.33 Body mass index [BMI] 33.0-33.9, adult; R29.701 NIHSS score 1; F17.210 Nicotine dependence, cigarettes, uncomplicated; E80.6 Other disorders of bilirubin metabolism; R79.1 Abnormal coagulation profile; Z79.02 Long term (current) use of antithrombotics/antiplatelets; Z79.82 Long term (current) use of aspirin; Z79.899 Other long term (current) drug therapy; Z82.49 Family history of ischemic heart disease and other diseases of the circulatory system
CPT/HCPCS: 36415; 36600; 70450; 70551; 71045; 71275; 80048; 80053; 80061; 81003; 82803; 82805; 83036; 83605; 83735; 83880; 84443; 84484; 85025; 85027; 85379; 85610; 85730; 87636; 93005; 93306; 93308; 93880; 93970; 94640; 94660; 94760; 96374; 99291

== ENCOUNTER 2024-01-19 10:01 | Emergency (ER) | payer OTHER ==
[2024-01-19 10:06] VITALS: RESP 18; TEMP 97.8
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
[2024-01-19 10:50] LABS: Basophils % (A) 0 %; Eosinophils # (A) 0.1 k/uL (0-0.7); Eosinophils % (A) 1 %; HGB 18.9 gm/dL (13.0-17.5); Hypochromasia Marked; Lymphocytes % (A) 10 %; MCH 29.6 pg (25.0-35.0); MCHC 30.5 g/dL (31.0-37.0); Mean Platelet Volume 7.3; Monocytes # (A) 0.7 k/uL (0-1.0); Monocytes % (A) 6 %; Neutrophils # (A) 8.7 k/uL (1.3-7.7); Neutrophils % (A) 82 %; Platelet Count 218 k/uL (150-450); RBC 6.38 m/uL (4.30-5.90); RDW 13.9 % (11.5-15.5); WBC 10.6 k/uL (3.8-10.6)
[2024-01-19 11:13] LABS: HCT 61.9 % (39.0-53.0)
[2024-01-19 11:31] LABS: ALT 53 U/L (4-49); AST 41 U/L (17-59); African American GFR (CKD) >90 (>60 ml/min/1.73 sqM); Albumin 3.7 g/dL (3.5-5.0); Alkaline Phosphatase 74 U/L (38-126); Anion Gap 4 mmol/L; Blood Urea Nitrogen 24 mg/dL (9-20); Calcium 9.6 mg/dL (8.4-10.2); Carbon Dioxide 31 mmol/L (22-30); Chloride 101 mmol/L (98-107); Glucose 103 mg/dL (74-99); Non-African American GFR(CKD) >90 (>60 ml/min/1.73 sqM); Potassium 4.4 mmol/L (3.5-5.1); Sodium 136 mmol/L (137-145); Total Bilirubin 2.1 mg/dL (0.2-1.3); Total Protein 6.6 g/dL (6.3-8.2)
--- NOTE | 2024-01-19 12:25 | CT ---
EXAMINATION TYPE: CT abdomen pelvis w con CT DLP: 1649.9 mGycm, Automated exposure control for dose reduction was used. DATE OF EXAM: 01/19/2024 12:03 PM COMPARISON: CTA chest 01/11/2024, renal ultrasound 01/11/2021 CLINICAL INDICATION:Male, 63 years old with history of Abdominal pain and bloating; Abdominal pain an d bloating TECHNIQUE: Standard CT of the abdomen and pelvis following the administration of 100 cc of Isovue 3 00 IV contrast material. Coronal and sagittal reformats were performed. FINDINGS: LOWER CHEST: Remote healed right-sided rib fractures. Bibasilar linear atelectasis. Mild prominent he art. ABDOMEN LIVER: Subcentimeter right hepatic dome likely cyst. GALLBLADDER AND BILE DUCTS: Cholelithiasis. No surrounding inflammatory changes. No biliary duct dila tation. PANCREAS: Unremarkable. SPLEEN: Not enlarged. Calcified granuloma. ADRENAL GLANDS: Unremarkable. KIDNEYS AND URETERS: No evidence of hydronephrosis or renal calculus. The kidneys enhance symmetrical ly. Contrast is demonstrated within both collecting systems on the delayed phase. Small bilateral sub centimeter renal cysts. PELVIS BLADDER: Unremarkable REPRODUCTIVE: Prostate is enlarged in size measuring 5.3 cm in transverse dimension. Central prostate calcifications. ABDOMEN & PELVIS STOMACH AND BOWEL: Gastric distention. The colon is unremarkable without evidence of wall thickening stranding inflammatory changes. The appendix is within normal limits. Dilated small bowel identified measuring up to 4.3 cm. There is circumferential wall thickening of the mid small bowel in the anteri or right pelvis (series 202, image 50). No focal abrupt transition point. The distal small bowel is n ormal in caliber. No pneumatosis. PERITONEUM: No evidence of pneumoperitoneum. Small amount of free fluid throughout the abdomen and pe lvis. VASCULATURE: No evidence of aortic aneurysm. Portal venous system appears patent. MUSCULOSKELETAL: No acute osseous abnormalities. Sclerotic region within the right hemisacrum likely representing bone islands. LYMPH NODES: No evidence for lymphadenopathy. SOFT TISSUE/ABDOMINAL WALL: Patulous fat filled bilateral inguinal rings. IMPRESSION: 1. Findings of mid small bowel wall thickening suggesting enteritis. Additionally there is small bow el dilatation and inflammatory changes proximal to this favored to represent an ileus. No focal abrup t caliber change identified to suggest high-grade small bowel obstruction. 2. Small volume ascites throughout the abdomen and pelvis likely reactive #1. 3. Cholelithiasis. [facility], , 01/19/2024 12:22 PM
[2024-01-19] MEDS: LACTULOSE 20 GM/30 ML CUP PO ONE (12:50)
[2024-01-19 12:56] VITALS: BP 143/104; PULSE 87
== END 2024-01-19 13:14 | disposition home or self-care (01) ==
LOC: EC 10:01
DX: K59.00 Constipation, unspecified
CPT/HCPCS: 36415; 74177; 80053; 83605; 85025; 99284

== ENCOUNTER 2024-01-27 13:07 | Emergency (ER) | payer OTHER ==
[2024-01-27 13:20] VITALS: TEMP 97.6
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
[2024-01-27 14:26] LABS: Basophils # (A) 0.1 k/uL (0-0.2); Basophils % (A) 1 %; Eosinophils # (A) 0.1 k/uL (0-0.7); Eosinophils % (A) 1 %; HGB 18.4 gm/dL (13.0-17.5); Hypochromasia Marked; Lymphocytes # (A) 1.4 k/uL (1.0-4.8); Lymphocytes % (A) 17 %; MCH 29.3 pg (25.0-35.0); MCHC 29.9 g/dL (31.0-37.0); MCV 98.3 fL (80.0-100.0); Mean Platelet Volume 6.8; Monocytes # (A) 0.6 k/uL (0-1.0); Monocytes % (A) 6 %; Neutrophils # (A) 6.2 k/uL (1.3-7.7); Neutrophils % (A) 73 %; Platelet Count 314 k/uL (150-450); RBC 6.26 m/uL (4.30-5.90); RDW 14.1 % (11.5-15.5); WBC 8.5 k/uL (3.8-10.6)
[2024-01-27 14:32] VITALS: RESP 18
[2024-01-27 14:54] LABS: ALT 49 U/L (4-49); African American GFR (CKD) >90 (>60 ml/min/1.73 sqM); Albumin 4.1 g/dL (3.5-5.0); Alkaline Phosphatase 92 U/L (38-126); Anion Gap 5 mmol/L; Blood Urea Nitrogen 16 mg/dL (9-20); Calcium 9.8 mg/dL (8.4-10.2); Carbon Dioxide 33 mmol/L (22-30); Chloride 103 mmol/L (98-107); Glucose 88 mg/dL (74-99); Non-African American GFR(CKD) >90 (>60 ml/min/1.73 sqM); Sodium 141 mmol/L (137-145); Total Bilirubin 1.1 mg/dL (0.2-1.3); Total Protein 7.3 g/dL (6.3-8.2)
[2024-01-27 14:57] LABS: Magnesium 1.8 mg/dL (1.6-2.3); Potassium 4.1 mmol/L (3.5-5.1)
[2024-01-27 14:58] LABS: AST 47 U/L (17-59)
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
[2024-01-27 15:11] VITALS: BP 146/96
[2024-01-27 15:11] LABS: HCT 61.5 % (39.0-53.0)
[2024-01-27 15:37] VITALS: PULSE 86
== END 2024-01-27 15:37 | disposition home or self-care (01) ==
LOC: EC 13:07
CPT/HCPCS: 36415; 71046; 80053; 83735; 85025; 99284

== ENCOUNTER 2024-02-09 16:33 | Emergency (ER) | payer OTHER ==
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
[2024-02-09 16:45] VITALS: TEMP 97.8
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
[2024-02-09] MEDS: SODIUM CHLORIDE 0.9% 1,000 ML IV STA (18:05)
[2024-02-09] MEDS: MORPHINE SULFATE 4 MG/ML SYRINGE IV STA (18:19)
[2024-02-09 18:33] LABS: Basophils % (A) 1 %; Eosinophils # (A) 0.1 k/uL (0-0.7); Eosinophils % (A) 2 %; HGB 17.3 gm/dL (13.0-17.5); Hypochromasia Slight; Lymphocytes % (A) 14 %; MCH 30.1 pg (25.0-35.0); MCHC 31.3 g/dL (31.0-37.0); MCV 96.2 fL (80.0-100.0); Mean Platelet Volume 7.6; Monocytes # (A) 0.6 k/uL (0-1.0); Monocytes % (A) 8 %; Neutrophils # (A) 5.3 k/uL (1.3-7.7); Neutrophils % (A) 74 %; Platelet Count 185 k/uL (150-450); RBC 5.77 m/uL (4.30-5.90); RDW 14.5 % (11.5-15.5); WBC 7.2 k/uL (3.8-10.6)
[2024-02-09 18:41] LABS: Partial Thromboplastin Time 24.1 sec (22.0-30.0); Prothrombin Time 11.1 sec (10.0-12.5)
[2024-02-09 18:46] LABS: HCT 55.5 % (39.0-53.0)
--- NOTE | 2024-02-09 19:11 | XR ---
EXAMINATION TYPE: XR chest 1V DATE OF EXAM: 02/09/2024 6:49 PM CLINICAL INDICATION: Male, 63 years old with history of fall; [facility] COMPARISON: Chest radiographs from 01/27/2024 TECHNIQUE: XR chest 1V Frontal view of the chest. FINDINGS: Lungs/Pleura: Prominent interstitial lung markings are seen scattered throughout the lungs. No eviden ce of focal consolidation, pneumothorax or pleural effusion. Pulmonary vascularity: Unremarkable. Heart/mediastinum: Cardiomediastinal silhouette is unremarkable. Musculoskeletal: No acute osseous pathology. Remote right-sided rib injuries. IMPRESSION: 1. No acute cardiopulmonary disease/process. 2. Remote appearing right-sided rib injuries. 3. Similar interstitial lung markings.. [facility], , 02/09/2024 7:09 PM
--- NOTE | 2024-02-09 19:12 | XR ---
EXAMINATION TYPE: XR shoulder complete RT DATE OF EXAM: 02/09/2024 6:49 PM CLINICAL INDICATION: Male, 63 years old with history of fall; [facility] COMPARISON: None TECHNIQUE: XR shoulder complete RT; examined in AP, internally rotated and scapular Y projections. FINDINGS: No evidence of acute osseous pathology, joint dislocation, or soft tissue swelling. The remaining po rtions of the visualized chest are unremarkable. Degeneration changes of the acromion, distal clavic le with osteophyte formation. There is osteophyte formation of the glenoid and humeral head. There is joint space narrowing of glenohumeral joint. Remote appearing right-sided rib injuries. IMPRESSION: 1. No acute osseous pathology. 2. Mild shoulder osteoarthrosis. [facility], , 02/09/2024 7:10 PM
--- NOTE | 2024-02-09 19:12 | XR ---
EXAMINATION TYPE: XR pelvis AP view DATE OF EXAM: 02/09/2024 6:49 PM CLINICAL INDICATION: Male, 63 years old with history of fall; [facility] COMPARISON: None TECHNIQUE: XR pelvis AP view, examined in a single projection. FINDINGS: There is no evidence of fracture or dislocation. There is no soft tissue abnormality. No a bnormal calcifications are present. The spine appears intact. The hips appear intact. Osteophyte form ation of the superior acetabulum bilaterally with mild joint space narrowing. IMPRESSION: No acute osseous pathology. Mild degeneration changes of the hip. [facility], , 02/09/2024 7:09 PM
[2024-02-09 19:23] LABS: Appearance,Urine Clear (Clear); Bilirubin,Urine Negative (Negative); Blood,Urine Negative (Negative); Color,Urine Light Yellow; Glucose,Urine (UA) Negative (Negative); Ketones,Urine Negative (Negative); Leukocyte Esterase,Urine Negative (Negative); Nitrite,Urine Negative (Negative); PH, Urine 5.5 (5.0-8.0); Protein,Urine Negative (Negative); Specific Gravity,Urine 1.011 (1.001-1.035); Urobilinogen,Urine <2.0 mg/dL (<2.0)
[2024-02-09 19:34] LABS: ALT 32 U/L (4-49); AST 29 U/L (17-59); African American GFR (CKD) >90 (>60 ml/min/1.73 sqM); Albumin 3.4 g/dL (3.5-5.0); Alcohol <10 mg/dL; Alkaline Phosphatase 83 U/L (38-126); Anion Gap 3 mmol/L; Blood Urea Nitrogen 12 mg/dL (9-20); Calcium 8.5 mg/dL (8.4-10.2); Carbon Dioxide 33 mmol/L (22-30); Chloride 104 mmol/L (98-107); Glucose 91 mg/dL (74-99); Magnesium 1.9 mg/dL (1.6-2.3); Non-African American GFR(CKD) >90 (>60 ml/min/1.73 sqM); Phosphorus 3.7 mg/dL (2.5-4.5); Potassium 3.6 mmol/L (3.5-5.1); Sodium 140 mmol/L (137-145); Total Bilirubin 0.8 mg/dL (0.2-1.3); Total Protein 6.2 g/dL (6.3-8.2)
[2024-02-09] MEDS: IBUPROFEN 600 MG STARTER PACK 4 TAB BTL PO STA (20:08)
[2024-02-09] MEDS: ACET/COD 300 MG/30 MG STARTER PACK 6 TAB BTL PO STA (20:10)
[2024-02-09] MEDS: KETOROLAC 15 MG/ML 1 ML VIAL IVP STA (20:11)
[2024-02-09 20:15] VITALS: BP 162/114; PULSE 92; RESP 18
== END 2024-02-09 20:24 | disposition home or self-care (01) ==
LOC: EC 16:33
DX: S09.90XA Unspecified injury of head, initial encounter (principal); F17.200 Nicotine dependence, unspecified, uncomplicated; Z86.73 Personal history of transient ischemic attack (TIA), and cerebral infarction without residual deficits; V89.2XXA Person injured in unspecified motor-vehicle accident, traffic, initial encounter; Y92.410 Unspecified street and highway as the place of occurrence of the external cause
CPT/HCPCS: 36415; 93005; 80053; 83605; 83735; 84100; 84484; 85025; 85610; 85730; 81003; 72170; 73030; 71045; 72125; 70450; 99285; 96374; 96375; 96361; G0480; J2270; J1885; 80320

== ENCOUNTER 2024-10-27 16:40 | Emergency (ER) | payer OTHER ==
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
[2024-10-27 19:16] LABS: Basophils # (A) 0.05 10*3/uL (0.00-0.10); Basophils % (A) 0.8 %; Eosinophils # (A) 0.14 10*3/uL (0.04-0.35); Eosinophils % (A) 2.3 %; HCT 44.2 % (39.6-50.0); HGB 14.5 g/dL (13.0-17.0); Lymphocytes # (A) 1.51 10*3/uL (0.90-5.00); Lymphocytes % (A) 25.2 %; MCH 31.8 pg (27.0-32.0); MCHC 32.8 g/dL (32.0-37.0); MCV 96.9 fL (80.0-97.0); Monocytes # (A) 0.64 10*3/uL (0.20-1.00); Monocytes % (A) 10.7 %; Neutrophils # (A) 3.64 10*3/uL (1.80-7.70); Neutrophils % (A) 60.7 %; Platelet Count 221 10*3/uL (140-440); RBC 4.56 10*6/uL (4.40-5.60); RDW 13.8 % (11.5-14.5); WBC 6.00 10*3/uL (4.50-10.00)
[2024-10-27 19:25] LABS: ALT 14 U/L (4-49); AST 18 U/L (17-59); African American GFR (CKD) >90 (>60 ml/min/1.73 sqM); Albumin 4.1 g/dL (3.5-5.0); Alkaline Phosphatase 91 U/L (38-126); Anion Gap 9 mmol/L; Blood Urea Nitrogen 10 mg/dL (9-20); Calcium 9.7 mg/dL (8.4-10.2); Carbon Dioxide 27 mmol/L (22-30); Chloride 103 mmol/L (98-107); Glucose 76 mg/dL (74-99); Magnesium 2.2 mg/dL (1.6-2.3); Non-African American GFR(CKD) >90 (>60 ml/min/1.73 sqM); Potassium 4.4 mmol/L (3.5-5.1); Sodium 139 mmol/L (137-145); Total Protein 6.8 g/dL (6.3-8.2)
[2024-10-27] MEDS: hydrALAZINE HCL 20 MG/ML 1 ML VIAL IVP STA (19:38)
[2024-10-27 19:49] LABS: NT-Pro-B-Type Natriuretic Pept 2040 pg/mL
[2024-10-27 20:42] LABS: INR 1.0 (<1.2); Partial Thromboplastin Time 23.5 sec (22.0-30.0); Prothrombin Time 10.9 sec (10.0-12.5)
[2024-10-27 21:46] VITALS: BP 167/98; PULSE 85; RESP 18; TEMP 98.7
== END 2024-10-27 21:46 | disposition home or self-care (01) ==
LOC: EC 16:40
DX: I10 Essential (primary) hypertension (principal); F17.200 Nicotine dependence, unspecified, uncomplicated
CPT/HCPCS: 36415; 93005; 83880; 80053; 83735; 84484; 85025; 85610; 85730; 99284; 96374; J0360